=== PATIENT | female | born 1935 | race Caucasian/White ===

== ENCOUNTER 2017-03-19 12:35 | Inpatient (IN) ==
[2017-03-19] MEDS ORDERED: LORazepam 1 MG TABLET PO PRN (13:12)
--- OUTSIDE RECORDS SUMMARY | 2017-03-19 13:25 | External Medical Summary | Referral Summary ---
:1935 Author Organization [facility] Address [address] [place] [address] Care Team Providers Name Role Phone Maddi Cummings Primary Care Physician Encounter VC Date(s): 08/01/15 - 08/01/15 [facility] [address] [place] [address]- [place] Discharge Diagnosis: Constipation Discharge Disposition: 01-Home or Self Care Attending Physician: Maddi Cummings MD Admitting Physician: Maddi Cummings MD Vital Signs Most recent to oldest [Reference Range]: 1 Peripheral Pulse Rate [60-100 bpm] 72 bpm (08/01/15 1:51 PM) Respiratory Rate [14-20 br/min] 20 br/min (08/01/15 1:51 PM) Blood Pressure [90-140/60-90 mmHg] 126/62 mmHg (08/01/15 1:51 PM) Problem List Condition Effective Dates Status Health Status Informant Anxiety(Confirmed) Resolved Asthma(Confirmed) Resolved Atrial fibrillation(Confirmed) Resolved Drusen of macula(Confirmed) Active Dry eyes(Confirmed) Active GERD(Confirmed) Resolved Insomnia(Confirmed) Resolved MVP (mitral valve Resolved prolapse)(Confirmed) OA - Osteoarthritis(Confirmed) Resolved Prosthetic Replacement for L hip fx 12/16/13 Resolved 38025(Confirmed)1 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) 1[facility] post-op global ends 03-16-14 Allergies, Adverse Reactions, Alerts No Known Allergies Medications acetaminophen 325 mg oral tablet 650 mg 2 tabs, Oral, q4hr, as needed for fever, # 120 tabs, 0 Refill(s) Start Date: 11/26/14 Status: Orderedamoxicillin 500 mg oral tablet 500 mg 1 tabs, Oral, Once, take 1 hour prior for prophylaxis, # 4 caps, 0 Refill (s) Start Date: 11/26/14 Status: OrderedAricept 10 mg oral tablet 1 tabs, Oral, Bedtime (once a day), # 30 tabs, 11 Refill(s), Pharmacy: [facility] #[id number], 1 tabs Oral Bedtime (once a day) Start Date: 11/16/13 Status: OrderedCardizem 120 mg oral tablet 1 tabs, Oral, Daily, 0 Refill(s) Start Date: 11/10/13 Status: Ordereddigoxin 125 mcg (0.125 mg) oral tablet 1 tabs, Oral, Daily, # 30 tabs, 0 Refill(s) Start Date: 11/10/13 Status: Orderedhaloperidol 0.5 mg oral tablet 2 tabs, Oral, Bedtime (once a day), 0 Refill(s) Start Date: 11/10/13 Status: OrderedMelatonin 3 mg oral tablet 3 mg 1 tabs, Oral, Bedtime (once a day), as needed for insomnia, # 60 tabs, 0 Refill(s) Start Date: 11/26/14 Status: Orderedmirtazapine 7.5 mg oral tablet 15 mg 2 tabs, Oral, Bedtime (once a day), 0 Refill(s) Start Date: 11/10/13 Status: OrderedNorco 7.5 mg-325 mg oral tablet 1 tabs, Oral, q6hr, as needed for pain, Faxed to [facility], # 60 tabs, 3 Refill(s), called to pharmacy (Rx) Start Date: 02/18/14 Status: OrderedOcuvite oral tablet 1 tabs, Oral, Daily, 0 Refill(s) Start Date: 11/16/13 Status: Orderedomeprazole 20 mg oral delayed release capsule See Instructions, TAKE ONE CAPSULE BY MOUTH EVERY DAY, # 30 caps, 3 Refill(s), eRx: [facility]#[id number], TAKE ONE CAPSULE BY MOUTH EVERY DAY Start Date: 12/06/13 Status: OrderedSystane ophthalmic solution 1 drops, Eye-Both, BID, as needed for dry eyes, # 5 mL, 0 Refill(s) Start Date: 11/26/14 Status: Orderedtolterodine 4 mg oral capsule, extended release 1 caps, Oral, Daily, # 30 caps, 11 Refill(s), Pharmacy: [facility], 1 caps Oral Daily Start Date: 02/19/14 Status: OrderedVitamin D3 400 intl units oral tablet 1 tabs, Oral, Daily, 0 Refill(s) Start Date: 11/10/13 Status: Orderedwarfarin 3 mg oral tablet See Instructions, Take 1 tablet M, W, F/ or otherwise instructed by doctor, 0 Refill(s) Start Date: 11/10/13 Status: Orderedwarfarin 4 mg oral tablet See Instructions, Take 1 tablet by mouth Steve, , Th, Sa/ or as otherwise instructed by doctor, 0 Refill(s) Start Date: 11/10/13 Status: OrderedXanax 0.5 mg oral tablet See Instructions, as needed for anxiety, Take 1/2 tab by mouth BID for anxiety and take 2 tabs by mouth every 12 hours as needed for anxiety., # 90 tabs, 5 Refill(s), called to pharmacy (Rx) Start Date: 08/15/14 Status: Ordered Results No data available for this section Immunizations Vaccine Date Refusal Reason influenza virus vaccine, H1N1, inactivat 05/13/09 influenza virus vaccine, inactivated 02/25/15 influenza virus vaccine, live 03/05/11 influenza virus vaccine, live 02/04/09 influenza virus vaccine, live 03/11/08 Procedures No data available for this section Social History Social History Type Response Smoking Status Never smoker Assessment and Plan No data available for this section
--- OUTSIDE RECORDS SUMMARY | 2017-03-19 13:25 | External Medical Summary | Referral Summary ---
:1935 Author Organization [facility] Address [address] [place] [address] Care Team Providers Name Role Phone Maddi Cummings Primary Care Physician Encounter VC Date(s): 11/26/14 - 11/26/14 [facility] [address] [place] [address]- [place] Discharge Diagnosis: Benign essential HTN Discharge Diagnosis: Atrial fibrillation Discharge Diagnosis: Epistaxis Discharge Diagnosis: Anxiety Discharge Diagnosis: Anticoagulant long-term use Discharge Diagnosis: Dementia Discharge Disposition: 01-Home or Self Care Attending Physician: Maddi Cummings MD Admitting Physician: Maddi Cummings MD Vital Signs Most recent to oldest [Reference Range]: 1 Peripheral Pulse Rate [60-100 bpm] 72 bpm (11/26/14 4:15 PM) Blood Pressure [90-140/60-90 mmHg] 154/82 mmHg *HI* (11/26/14 4:15 PM) SpO2 98 % (11/26/14 4:15 PM) Problem List Condition Effective Dates Status Health Status Informant Anxiety(Confirmed) Resolved Asthma(Confirmed) Resolved Atrial fibrillation(Confirmed) Resolved Drusen of macula(Confirmed) Active Dry eyes(Confirmed) Active GERD(Confirmed) Resolved Insomnia(Confirmed) Resolved MVP (mitral valve Resolved prolapse)(Confirmed) OA - Osteoarthritis(Confirmed) Resolved Prosthetic Replacement for L hip fx 12/16/13 Resolved 24307(Confirmed)1 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) 1[facility] post-op global ends 03-16-14 Allergies, Adverse [...] day), # 30 tabs, 11 Refill(s), Pharmacy: [facility] #[id number], 1 tabs Oral Bedtime (once a day) Start Date: 11/16/13 Status: Orderedcalcium citrate 500 mg, Oral, Daily, 0 Refill(s) Start Date: 11/10/13 Status: OrderedCardizem 120 mg oral tablet 1 [...] q6hr, as needed for pain, Faxed to [facility], # 60 tabs, 3 Refill(s), called to pharmacy (Rx) Start Date: 02/18/14 Status: OrderedOcuvite oral tablet 1 tabs, Oral, Daily, 0 Refill(s) Start Date: 11/16/13 Status: Orderedomeprazole 20 mg oral delayed release capsule See Instructions, TAKE ONE CAPSULE BY MOUTH EVERY DAY, # 30 caps, 3 Refill(s), eRx: [facility]#[id number], TAKE ONE CAPSULE BY MOUTH EVERY DAY Start Date: 12/06/13 Status: OrderedSystane ophthalmic solution 1 drops, Eye-Both, BID, as needed for dry eyes, # 5 mL, 0 Refill(s) Start Date: 11/26/14 Status: Orderedtolterodine 4 mg oral capsule, extended release 1 caps, Oral, Daily, # 30 caps, 11 Refill(s), Pharmacy: [facility], 1 caps Oral Daily Start Date: [...] Take 1 tablet by mouth Steve, , , Sa/ or as otherwise instructed by doctor, [...] Smoking Status Never smoker Assessment and Plan Extracted from: Title: Office Visit Note Author: Maddi Cummings MD Date: 11/26/14 Assessment/Plan 1.Epistaxis Resolved with addition of humidity. Continue to monitor. Her INR was therapeutic. 2.Anxiety We'll continue to monitor. Hopefully they'll be able to find some activities that she isn't sedated. She is Re: Taking Xanax on a when necessary basis. She also gets it 8 in the morning and 5 o'clock in the afternoon. 3.Anticoagulant long-term use INR therapeutic. Continue to monitor. 4.Dementia Stable, continue to monitor. 5.Atrial fibrillation Currently in normal sinus rhythm, continue to monitor. 6.Benign essential HTN Stable, continue to monitor. She will return she me in 3 months or sooner with problems.
--- OUTSIDE RECORDS SUMMARY | 2017-03-19 13:25 | External Medical Summary | Referral Summary ---
:1935 Author Organization [facility] Address [address] [place] [address] Care Team Providers Name Role Phone Maddi Cummings Primary Care Physician Encounter VC Date(s): 10/10/15 - 10/10/15 [facility] [address] [place] [address]- [place] Discharge Diagnosis: Weight loss Discharge Disposition: 01-Home or Self Care Attending Physician: Maddi Cummings MD Vital Signs Most recent to oldest [Reference Range]: 1 Peripheral Pulse Rate [60-100 bpm] 84 bpm (10/10/15 2:40 PM) Respiratory Rate [14-20 br/min] 20 br/min (10/10/15 2:40 PM) Blood Pressure [90-140/60-90 mmHg] 120/56 mmHg (10/10/15 2:40 PM) Problem List Condition Effective Dates Status Health Status Informant Anxiety(Confirmed) Resolved Asthma(Confirmed) Resolved Atrial fibrillation(Confirmed) Resolved Drusen of macula(Confirmed) Active Dry eyes(Confirmed) Active GERD(Confirmed) Resolved Insomnia(Confirmed) Resolved MVP (mitral valve Resolved prolapse)(Confirmed) OA - Osteoarthritis(Confirmed) Resolved Prosthetic Replacement for L hip fx 12/16/13 Resolved 79940(Confirmed)1 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 Fax to [phone], # 30 caps, 11 Refill(s) Start Date: 08/06/15 Status: OrderedMelatonin 3 mg oral tablet 3 [...] q6hr, as needed for pain, Faxed to [facility], # 60 tabs, 3 Refill(s), called to pharmacy (Rx) Start Date: 02/18/14 Status: OrderedOcuvite oral tablet 1 tabs, Oral, Daily, 0 Refill(s) Start Date: 11/16/13 Status: Orderedomeprazole 20 mg oral delayed release capsule See Instructions, TAKE ONE CAPSULE BY MOUTH EVERY DAY, # 30 caps, 3 Refill(s), eRx: [facility]#[id number], TAKE ONE CAPSULE BY MOUTH EVERY DAY Start Date: 12/06/13 Status: Orderedsenna 8.6 mg oral tablet 8.6 mg 1 tabs, Oral, BID, as needed for constipation, # 60 tabs, 11 Refill(s) Start Date: 08/20/15 Status: OrderedSystane ophthalmic solution 1 drops, Eye-Both, BID, as needed for dry eyes, # 5 mL, 0 Refill(s) Start Date: 11/26/14 Status: Orderedtolterodine 4 mg oral capsule, extended release 1 caps, Oral, Daily, # 30 caps, 11 Refill(s), Pharmacy: [facility], 1 caps Oral Daily Start [...] Instructions, Take 1 tablet by mouth Steve, Tu, Th, Sa/ or as otherwise instructed by [...] smoker Assessment and Plan Extracted from: Title: Assited living letter Author: Melyssa Gary RN Date: 10/10/15 To whom it may concern: [facility] is cleared for assisted living. If you have any questions feel free to call my office at [phone]. Sincerely, Maddi Cummings MD Extracted from: Title: TW General Complaint Author: Maddi Cummings MD Date: 10/10/15 Impression and Plan Diagnosis Constipation (UIW38-IW K59.00, Working, Medical). Plan: Will continue Linzess. Discontinue prune juice and she may use yogurt. . Diagnosis Dementia (DGB78-WV F03.90, Working, Medical). Plan: Slight progression, will continue to monitor. . Diagnosis Atrial fibrillation (TEU48-IX I48.91, Working, Medical). Plan: Stable. Continue current care. . Diagnosis Anxiety (FFM64-BY F41.9, Working, Medical). Plan: She is having a lot of anxiety about bowel movements. Continue to monitor and continue anxiety medication. . Diagnosis Weight loss (JDK65-DH R63.4, Discharge, Medical). Plan: she has been losing weight. Daughter states that she eats very well. We discussed whether or not to proceed with further evaluation. Because of her dementia and other comorbidities her freeman quintanilla is not inclined to pursue evaluation at this time. We'll continue to monitor..
--- OUTSIDE RECORDS SUMMARY | 2017-03-19 13:29 | External Medical Summary | Referral Summary ---
:1935 Author Organization [facility] Address [address] [place] [address] Care Team Providers Name Role Phone Maddi Cummings Primary Care Physician Encounter VC Date(s): 07/07/15 - 07/07/15 [facility] [address] [place] [address]- [place] Discharge Diagnosis: Constipation Discharge Disposition: 01-Home or Self Care Attending Physician: Maddi Cummings MD Admitting Physician: Maddi Cummings MD Vital Signs Most recent to oldest [Reference Range]: 1 Peripheral Pulse Rate [60-100 bpm] 76 bpm (07/07/15 2:58 PM) Respiratory Rate [14-20 br/min] 16 br/min (07/07/15 2:58 PM) Blood Pressure [90-140/60-90 mmHg] 99/69 mmHg (07/07/15 2:58 PM) Problem List Condition Effective Dates Status Health Status Informant Anxiety(Confirmed) Resolved Asthma(Confirmed) Resolved Atrial fibrillation(Confirmed) Resolved Drusen of macula(Confirmed) Active Dry eyes(Confirmed) Active GERD(Confirmed) Resolved Insomnia(Confirmed) Resolved MVP (mitral valve Resolved prolapse)(Confirmed) OA - Osteoarthritis(Confirmed) Resolved Prosthetic Replacement for L hip fx 12/16/13 Resolved 82557(Confirmed)1 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) 1[facility] post-op global ends 03-16-14 Allergies, Adverse Reactions, [...] day), # 30 tabs, 11 Refill(s), Pharmacy: [facility] #[id number], 1 tabs Oral Bedtime (once a day) [...] q6hr, as needed for pain, Faxed to [facility], # 60 tabs, 3 Refill(s), called to pharmacy (Rx) Start Date: 02/18/14 Status: OrderedOcuvite oral tablet 1 tabs, Oral, Daily, 0 Refill(s) Start Date: 11/16/13 Status: Orderedomeprazole 20 mg oral delayed release capsule See Instructions, TAKE ONE CAPSULE BY MOUTH EVERY DAY, # 30 caps, 3 Refill(s), eRx: [facility]#[id number], TAKE ONE CAPSULE BY MOUTH EVERY DAY Start Date: 12/06/13 Status: OrderedSystane ophthalmic solution 1 drops, Eye-Both, BID, as needed for dry eyes, # 5 mL, 0 Refill(s) Start Date: 11/26/14 Status: Orderedtolterodine 4 mg oral capsule, extended release 1 caps, Oral, Daily, # 30 caps, 11 Refill(s), Pharmacy: [facility], 1 caps Oral Daily Start [...] Extracted from: Title: Office Visit Note Author: Mdadi Cummings MD Date: 07/07/15 Assessment/Plan 1.Constipation We went over her medication list she has some things on there that can cause constipation. Her daughter states that she is not sure that she is really been taking all medications listed. I will have my staff call the home and get an updated MAR. I'm not sure if any of the medications listed can be discontinued. We may have to decrease his Senokot-S to once dailyto avoidthe loose stools.
--- OUTSIDE RECORDS SUMMARY | 2017-03-19 13:29 | External Medical Summary | Continuity of Care Document ---
:1935 Author Organization [facility] Allergies Active Description Code Type Severity Reaction Onset Reported/ Identified Relationship Clinical to Patient Status Yes No Known Drug 04/23/2012 Allergies Aller gy Yes No Known Drug 04/23/2012 Drug Aller Allergies gy Yes No Known Food 04/23/2012 Food Aller Allergies gy Yes No Known No Drug Unknown UNKNOWN 08/07/2013 Drug Known Aller Allergies Drug gy Aller gies Yes No Known No Drug Unknown N/A 05/20/2014 Allergies Known Aller Aller gy gies Medications Problems Date Dx Attending Type Code Diagnosis Diagnosed By Coded 02/09/2012 Avery Mayer MD Final 401.9 HYPERTENSION NOS C 02/09/2012 Avery Mayer MD Final 562.10 COLON DIVERTICULOSIS C 02/09/2012 Avery Mayer MD Final 564.00 CONSTIPATION NOS C 02/09/2012 Avery Mayer MD Final 793.19 NONSP FINDING-LF NEC C 03/14/2012 Asif Nowak Final 786.05 SHORTNESS OF BREATH Ella CABRAL 04/23/2012 Carl CABRAL, Final 300.00 ANXIETY STATE NOS Cristine W 04/23/2012 Carl CABRAL, Final 427.31 ATRIAL FIBRILLATION Cristine W 04/23/2012 Carl CABRAL, Admitting 785.0 TACHYCARDIA NOS Cristine W 08/07/2013 Serafin CABRAL, A 789.00 ABDOMINAL PAIN, Derek M UNSPECIFIED SITE 12/16/2013 Darwin Fam MD 276.1 HYPOSMOLALITY D 12/16/2013 Darwin Fam MD 276.8 HYPOPOTASSEMIA D 12/16/2013 Darwin Fam MD 294.20 DEMENTIA, D UNSPECIFIED, WITHOUT BEHAVIORAL DISTURBA 12/16/2013 Darwin Fam MD 300.00 ANXIETY STATE NOS D 12/16/2013 Darwin Fam MD 401.9 HYPERTENSION NOS D 12/16/2013 Darwin Fam MD 427.31 ATRIAL FIBRILLATION D 12/16/2013 Darwin Fam MD 428.0 CONGESTIVE HEART D FAILURE NOS 12/16/2013 Darwin Fam MD 820.09 FX FEMUR INTRCAPS D NEC-CL 12/16/2013 Darwin Fam MD 820.8 FX NECK OF FEMUR D NOS-CL 12/16/2013 Darwin Fam MD E849.0 ACCIDENT IN HOME D 12/16/2013 Darwin Fam MD E888.9 FALL NOS D 12/16/2013 Darwin Fam MD V58.61 ANTICOAGULANTS,LT,CU D RRENT USE Procedures Code Description Performed By Performed On Darwin Fam MD 12/16/2013 81.52 PARTIAL HIP REPLACEMENT Encounters ACCT No. Visit Discharge Status Pt. Type Provider Facility Loc./Unit Complaint Date/Time [id number] 04/23/2012 04/23/2012 DIS Emergency Carl CABRAL, [facility] 4 19:04:00 21:15:00 [facility] [id number] 03/15/2012 03/15/2012 CLS Outpatient Asif [facility] 0 07:46:00 23:59:59 Eliu Ortiz MD, [facility] [id number] 02/09/2012 02/09/2012 DIS Emergency Moreno CABRAL, [facility] 3 12:36:00 17:19:00 [facility] [id number] 07/30/2013 07/30/2013 CLS Outpatient 07:53:00 23:59:59 [id number] 07/27/2013 07/27/2013 CLS Outpatient 18:28:00 23:59:59 [id number] 07/25/2013 07/25/2013 CLS Outpatient 15:54:00 23:59:59 [id number] 07/20/2013 07/20/2013 CLS Outpatient 14:48:00 23:59:59 [id number] 07/04/2013 07/04/2013 CLS Outpatient 15:36:00 23:59:59 [id number] 06/20/2013 06/20/2013 CLS Outpatient 11:26:00 23:59:59 [id number] 05/25/2013 05/25/2013 CLS Outpatient 08:02:00 23:59:59 [id number] 03/16/2013 03/16/2013 CLS Outpatient 09:40:00 23:59:59 [id number] 05/20/2014 05/20/2014 DIS Emergency Serafin CopeEDS 07 18:04:00 22:10:00 , [facility] M [id number] 12/16/2013 12/19/2013 DIS Inpatient Sarwat Hermanley BlaineRemi9TS 13 01:51:00 15:04:00 MD [facility] [id number] 09/12/2013 09/13/2013 DIS Outpatient Emiliano CopeSELECT BANKER 57 14:41:00 17:44:00 MD [facility] [id number] 08/07/2013 08/08/2013 DIS Emergency Jadenlonny Conor CopeEDS 43 19:38:00 01:53:00 , [facility] M [id number] 05/17/2010 05/17/2010 CLS Emergency 38 21:47:00 23:59:59
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
[2017-03-19] MEDS ORDERED: HALOPERIDOL 5 MG/ML INJECTION IM PRN (14:23)
[2017-03-19 15:11] VITALS: BMI 16.5
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
[2017-03-19] MEDS ORDERED: WARFARIN - PHARMACY CONSULT MC ONE (16:04)
[2017-03-19] MEDS: MIRTAZAPINE 30 MG TABLET PO SCH (19:41)
[2017-03-19] MEDS: ClonazePAM 0.5 MG TABLET PO SCH (19:41)
[2017-03-19] MEDS: MEMANTINE 10 MG TABLET PO SCH (19:41)
[2017-03-19] MEDS: HALOPERIDOL 0.5 MG TABLET PO PRN (20:22)
[2017-03-20] MEDS: OMEPRAZOLE 20 MG CAPSULE PO SCH (08:38)
[2017-03-20] MEDS: ClonazePAM 0.5 MG TABLET PO SCH ×2 (08:45→21:44)
[2017-03-20] MEDS: DIGOXIN 125 MCG TABLET PO SCH (08:46)
[2017-03-20] MEDS: POLYETHYL GLYCOL 3350 17gm PACKET PO SCH (08:47)
[2017-03-20] MEDS ORDERED: WARFARIN 3 MG TABLET PO SCH (09:00)
--- NOTE | 2017-03-20 09:53 | XRay Report ---
INDICATION: confusion PROCEDURE: CHEST 2-VIEWS UPRIGHT (PA & LAT) Encounter: Initial COMPARISON: None FINDINGS: The lungs are clear without evidence of focal abnormal airspace opacity. There is no pleural effusion or pneumothorax. The heart size, mediastinal contours and pulmonary vascularity are within normal limits. Scoliosis and degenerative change in the lumbar spine. IMPRESSION: No acute cardiopulmonary disease. .
[2017-03-20] MEDS ORDERED: WARFARIN 4 MG TABLET PO SCH (12:00)
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
[2017-03-20] MEDS: LORazepam 0.5 MG TABLET PO PRN (15:17)
[2017-03-20] MEDS: MIRTAZAPINE 30 MG TABLET PO SCH (21:44)
[2017-03-20] MEDS: MEMANTINE 10 MG TABLET PO SCH (21:44)
[2017-03-20] MEDS: HALOPERIDOL 0.5 MG TABLET PO PRN (22:24)
[2017-03-21] MEDS: ClonazePAM 0.5 MG TABLET PO SCH ×2 (09:10→20:20)
[2017-03-21] MEDS: OMEPRAZOLE 20 MG CAPSULE PO SCH (09:21)
[2017-03-21] MEDS: DIGOXIN 125 MCG TABLET PO SCH (09:21)
[2017-03-21] MEDS: POLYETHYL GLYCOL 3350 17gm PACKET PO SCH (09:21)
--- NOTE | 2017-03-21 09:59 | Pharmacy Consult ---
Pharmacy Consult-Warfarin - Laboratory Information 03/21/17 07:01 INR 1.85 H Coumadin Consult Recurring: Dx: Atrial Fibrillation I ordered warfarin 4 mg today. The pharmacy will continue to monitor the INR's and adjust the warfarin accordingly. Thank you for the Warfarin Dosing Protocol , Asif Mohan, Pharmacist.
[2017-03-21] MEDS: HALOPERIDOL 0.5 MG TABLET PO PRN (10:57)
[2017-03-21] MEDS ORDERED: WARFARIN 4 MG TABLET PO SCH (12:00)
[2017-03-21] MEDS ORDERED: INFLUENZA VAC High Dose 2017-18 (Fluzone HD*) (>=65yo) 0.5ml IM ONE (13:40)
[2017-03-21] MEDS: LORazepam 0.5 MG TABLET PO PRN (13:49)
[2017-03-21] MEDS ORDERED: INFLUENZA VAC. INJ. ADMIN CHARGE INJ ONE (13:55)
[2017-03-21] MEDS: MIRTAZAPINE 30 MG TABLET PO SCH (20:20)
[2017-03-21] MEDS: MEMANTINE 10 MG TABLET PO SCH (20:20)
--- NOTE | 2017-03-21 21:30 | Neuropsych Progress Note ---
[facility] Subjective Date: 03/21/17 - Sujective/Severity of Illness Medications: Clonazepam (Klonopin) 0.5 mg PO BID [facility] Last Admin: 03/21/17 20:20 Dose: 0.5 mg Digoxin (Lanoxin) 125 mcg PO Q2D [facility] Diltiazem HCl (Cardizem Cd) 120 mg PO DAILY [facility] Last Admin: 03/21/17 09:10 Dose: 120 mg Haloperidol (Haldol) 0.5 mg PO Q6H PRN PRN Reason: Extreme agitation Last Admin: 03/21/17 10:57 Dose: 0.5 mg Haloperidol Lactate (Haldol) 0.5 mg IM Q6H PRN PRN Reason: Extreme agitation Lorazepam (Ativan) 1 mg PO O PRN PRN Reason: Agitation Lorazepam (Ativan) 0.5 mg PO Q6H PRN PRN Reason: Extreme agitation Last Admin: 03/21/17 13:49 Dose: 0.5 mg Lorazepam (Ativan Inj) 0.5 mg IM Q6H PRN PRN Reason: Extreme agitation Memantine (Namenda) 10 mg PO HS [facility] Last Admin: 03/21/17 20:20 Dose: 10 mg Mirtazapine (Remeron) 30 mg PO HS [facility] Last Admin: 03/21/17 20:20 Dose: 30 mg Omeprazole (Prilosec) 20 mg PO ACB [facility] Last Admin: 03/21/17 09:21 Dose: 20 mg Polyethylene Glycol (Miralax) 17 gm PO DAILY [facility] Last Admin: 03/21/17 09:21 Dose: 17 gm Warfarin Sodium (Coumadin Protocol) 0 MC NOTE [facility] Warfarin Sodium (Coumadin) 4 mg PO NOON [facility] Stop: 03/21/17 23:59 Last Admin: 03/21/17 13:14 Dose: 4 mg Subjective: Pt seen and chart examined. Nursing reports pt has been anxious and confused and difficult to redirect at times. On face to face the pt is pleasant but confused. She is seen eating dinner. She reports she is anxious and remains paranoid about someone breaking in her window. Denies S/I. Tolerating meds Start Time: 18:15 Stop Time: 18:30 Mental Status Exam Vitals: Last Vital Signs Temp 97.7 F 03/21/17 16:31 Pulse 85 03/21/17 16:31 Resp 16 03/21/17 16:31 BP 116/58 03/21/17 16:31 Pulse Ox 97 03/21/17 16:31 Height: 1.52 m Weight: 38.5 kg - Mental Status Exam Muscle Strength/Tone: Normal Dressing: Casual Grooming: Good Attitude: Guarded Motor Activity: Retardation Eye Contact: Fair Speech: Slowed Volume: Soft Rhythm: Appropriate Rhythm Orientation: Oriented to person Mood: Neutral Rate of Thoughts: Delayed Thought Organization: [place] Associations: Flight of Ideas Abstract Reasoning: Poor abstract reasoning Thought Content: Delusions, Paranoia Perception/Psychotic: Perception Normal Language: Naming Impaired Fund of Knowledge: Poor fund of knowledge Memory: Poor-immediate, Poor-recent Suicidal Ideation: None Homicidal Ideation: None Insight: Poor Judgement: Poor Impulse Control: Poor - Laboratory Result Diagrams: 03/21/17 07:01 03/19/17 13:22 Laboratory Results - last 24 hr 03/21/17 03/21/17 07:01 07:01 WBC 4.7 RBC 3.87 L Hgb 11.8 L Hct 36.7 MCV 94.8 MCH 30.5 MCHC 32.2 RDW Std Deviation 42.6 Plt Count 311 MPV 10.8 Immature Gran % (Auto) 0.0 Neut % (Auto) 44.4 Lymph % (Auto) 39.3 Wilkin % (Auto) 9.0 Eos % (Auto) 5.8 H Baso % (Auto) 1.5 Neut # (Auto) 2.1 Lymph # (Auto) 1.8 Wilkin # (Auto) 0.4 Eos # (Auto) 0.3 Baso # (Auto) 0.1 Abs Immat Gran (auto) 0.00 INR 1.85 H Assessment and Plan (1) Major neurocognitive disorder Problem details: with behavioral disturbance. Alzheimer's versus Vascular Current visit: Yes Status: Acute Hospital Course Summary Disclaimer: The visit summary below is not to be considered part of the above Progress Note. Hospital Course: 03/19/17 16:13 IMPRESSION Neurocognitive disorder with behavioral changes Normocytic anemia Dementia Anxiety & Depression A-fib - on Coumadin HTN MVP OA Asthma GERD Slow transit constipation PLAN Agree with admission. Still need to check EKG, CT head. Routine labs are also pending. Check dig level and INR. Consult pharmacy for Coumadin management. VS stable though HR has been mildly elevated - hx of A-fib, may need to investigate options for rate control. Normocytic anemia - check B12 level. Cachetic - check prealbumin level. Provide safe, supportive environment. 03/21/17 21:30 Remains confused. Will get collateral from family and discuss med options
[2017-03-22] MEDS: OMEPRAZOLE 20 MG CAPSULE PO SCH (05:33)
[2017-03-22] MEDS: POLYETHYL GLYCOL 3350 17gm PACKET PO SCH (08:02)
[2017-03-22] MEDS: ClonazePAM 0.5 MG TABLET PO SCH ×3 (08:03→23:41)
--- NOTE | 2017-03-22 08:13 | Pharmacy Consult ---
Pharmacy Consult-Warfarin - Laboratory Information 03/21/17 03/22/17 07:01 04:56 INR 1.85 H 1.85 H COUMADIN CONSULT: PC is an 81 yo female that was admitted for Major Neurocognitive Disorder. The patient has a history of atrial fibrillation with anticoagluation therapy using warfarin. Her home dose of warfarin was 4 mg orally daily. Date INR Dose 03/16 1.97 ? 03/20 ---- 4 mg 03/21 1.85 4 mg 03/22 1.85 5 MG The INR did not budge from the 1.85 so I ordered Warfarin 5 mg orally at noon today in order to increase the INR equal to or greater than 2.0. The goal INR for this patient is 2-3. The Pharmacy will continue to monitor the INR's and adjust the dosage of the Coumadin accordingly. Thank you for the Warfarin Dosing Protocol, Asif Mohan, Pharmacist.
--- NOTE | 2017-03-22 09:37 | Progress Note ---
- Date 03/22/17 Subjective: Winsome was eating breakfast. She reports sleeping well last night but staff disagreed - she slept for about 3 - 30 min stretches for a total of 1.5 hrs. She was anxious and restless all night. She denies any pain or SOA. She denies abdominal pain or nausea, but has been constipated per staff and took prune juice and MiraLAX this am. Objective Vital signs: Temperature 97.4 F 03/22/17 08:57 Pulse Rate 84 03/22/17 08:57 Respiratory Rate 16 03/22/17 08:57 Blood Pressure 146/67 H 03/22/17 08:57 Pulse Oximetry 97 03/22/17 08:57 Height/Weight/BMI: Height 1.52 m Weight 38.5 kg Body Mass Index 16.5 - Constitutional Present: no acute distress, cachectic - Routine HEENT Exam Eye: Absent: conjunctival icterus ENT: Present: mucous membranes moist - Routine Respiratory Exam Present: CTA bilaterally - Routine Cardiovascular Exam Present: irregularly irregular - Routine Abdominal Exam Present: soft, normoactive bowel sounds - Routine Extremities Exam Present: no edema - Routine Skin Exam Present: dry, warm - Routine Neurological Exam Present: alert - Routine Psychiatric Exam Present: cooperative Results - Labs CBC & Chem 7: 03/21/17 07:01 03/19/17 13:22 Assessment and Plan (1) Neurocognitive disorder Current visit: Yes Status: Acute Assessment and Plan: IMPRESSION Neurocognitive disorder with behavioral changes Normocytic anemia Mild PCM Dementia Anxiety & Depression A-fib - on Coumadin HTN MVP OA Asthma GERD Slow transit constipation PLAN Digoxin level was normal at 0.8 though give her age and low BMI this may be on the high end for her - digoxin frequency was therefore decreased to every-other- day. HR was >100 on admission but since then has been in the 80s-90s - BP has been acceptable; could consider increasing cardizem if rate increases with reduction of dig. INR 1.85 - pharmacy managing. Prealbumin low at 13.5 - start nutritional supplements. Vit B12 was low end of normal - start supplementation. Hospital Course Summary Disclaimer: The visit summary below is not to be considered part of the above Progress Note. Hospital Course: 03/19/17 16:13 IMPRESSION Neurocognitive disorder with behavioral changes Normocytic anemia Dementia Anxiety & Depression A-fib - on Coumadin HTN MVP OA Asthma GERD Slow transit constipation PLAN Agree with admission. Still need to check EKG, CT head. Routine labs are also pending. Check dig level and INR. Consult pharmacy for Coumadin management. VS stable though HR has been mildly elevated - hx of A-fib, may need to investigate options for rate control. Normocytic anemia - check B12 level. Cachetic - check prealbumin level. Provide safe, supportive environment. 03/21/17 21:30 Remains confused. Will get collateral from family and discuss med options 03/22/17 IMPRESSION Neurocognitive disorder with behavioral changes Normocytic anemia Mild PCM Dementia Anxiety & Depression A-fib - on Coumadin HTN MVP OA Asthma GERD Slow transit constipation PLAN Digoxin level was normal at 0.8 though give her age and low BMI this may be on the high end for her - digoxin frequency was therefore decreased to every-other- day. HR was >100 on admission but since then has been in the 80s-90s - BP has been acceptable; could consider increasing cardizem if rate increases with reduction of dig. INR 1.85 - pharmacy managing. Prealbumin low at 13.5 - start nutritional supplements. Vit B12 was low end of normal - start supplementation.
[2017-03-22] MEDS: LORazepam 0.5 MG TABLET PO PRN ×2 (09:43→15:39)
[2017-03-22] MEDS ORDERED: WARFARIN 5 MG TABLET PO SCH (12:00)
[2017-03-22] MEDS: CYANOCOBALAMIN (B-12) 500mcg TABLET PO SCH (12:04)
[2017-03-22] MEDS: HALOPERIDOL 0.5 MG TABLET PO PRN (15:39)
--- NOTE | 2017-03-22 17:17 | Neuropsych Progress Note ---
[facility] Subjective Date: 03/22/17 - Sujective/Severity of Illness Medications: Clonazepam (Klonopin) 0.5 mg PO BID [facility] Last Admin: 03/22/17 08:03 Dose: 0.5 mg Cyanocobalamin (Vit. B-12) 500 mcg PO DAILY [facility] Last Admin: 03/22/17 12:04 Dose: 500 mcg Digoxin (Lanoxin) 125 mcg PO Q2D [facility] Diltiazem HCl (Cardizem Cd) 120 mg PO DAILY [facility] Last Admin: 03/22/17 08:03 Dose: 120 mg Haloperidol (Haldol) 0.5 mg PO Q6H PRN PRN Reason: Extreme agitation Last Admin: 03/22/17 15:39 Dose: 0.5 mg Haloperidol Lactate (Haldol) 0.5 mg IM Q6H PRN PRN Reason: Extreme agitation Lorazepam (Ativan) 1 mg PO O PRN PRN Reason: Agitation Lorazepam (Ativan) 0.5 mg PO Q6H PRN PRN Reason: Extreme agitation Last Admin: 03/22/17 15:39 Dose: 0.5 mg Lorazepam (Ativan Inj) 0.5 mg IM Q6H PRN PRN Reason: Extreme agitation Memantine (Namenda) 10 mg PO HS [facility] Last Admin: 03/21/17 20:20 Dose: 10 mg Mirtazapine (Remeron) 30 mg PO HS [facility] Last Admin: 03/21/17 20:20 Dose: 30 mg Omeprazole (Prilosec) 20 mg PO ACB [facility] Last Admin: 03/22/17 05:33 Dose: 20 mg Polyethylene Glycol (Miralax) 17 gm PO DAILY [facility] Last Admin: 03/22/17 08:02 Dose: 17 gm Warfarin Sodium (Coumadin Protocol) 0 MC NOTE [facility] Warfarin Sodium (Coumadin) 5 mg PO NOON [facility] Stop: 03/22/17 23:59 Last Admin: 03/22/17 12:04 Dose: 5 mg Subjective: Pt seen and chart examined. Nursing reports pt has done a little better today but did receive Haldol and Ativan at 1540 for paranoia. On face to face the pt is resting quietly in her chair. She is pleasant but confused. She is only oriented to self. She denies any pain. Tolerating meds Start Time: 18:00 Stop Time: 18:15 Mental Status Exam Vitals: Last Vital Signs Temp 97.4 F 03/22/17 08:57 Pulse 84 03/22/17 08:57 Resp 16 03/22/17 08:57 BP 146/67 H 03/22/17 08:57 Pulse Ox 97 03/22/17 08:57 Height: 1.52 m Weight: 38.5 kg - Mental Status Exam Muscle Strength/Tone: Normal Dressing: Casual Grooming: Good Attitude: Guarded Motor Activity: Retardation Eye Contact: Fair Speech: Slowed Volume: Soft Rhythm: Appropriate Rhythm Orientation: Oriented to person Mood: Neutral Rate of Thoughts: Delayed Thought Organization: [place] Associations: Flight of Ideas Abstract Reasoning: Poor abstract reasoning Thought Content: Delusions, Paranoia Perception/Psychotic: Perception Normal Language: Naming Impaired Fund of Knowledge: Poor fund of knowledge Memory: Poor-immediate, Poor-recent Suicidal Ideation: None Homicidal Ideation: None Insight: Poor Judgement: Poor Impulse Control: Poor - Laboratory Result Diagrams: 03/21/17 07:01 03/19/17 13:22 Laboratory Results - last 24 hr 03/22/17 04:56 INR 1.85 H Assessment and Plan (1) Major neurocognitive disorder Problem details: with behavioral disturbance. Alzheimer's versus Vascular Current visit: Yes Status: Acute Hospital Course Summary Disclaimer: The visit summary below is not to be considered part of the above Progress Note. Hospital Course: 03/19/17 16:13 IMPRESSION Neurocognitive disorder with behavioral changes Normocytic anemia Dementia Anxiety & Depression A-fib - on Coumadin HTN MVP OA Asthma GERD Slow transit constipation PLAN Agree with admission. Still need to check EKG, CT head. Routine labs are also pending. Check dig level and INR. Consult pharmacy for Coumadin management. VS stable though HR has been mildly elevated - hx of A-fib, may need to investigate options for rate control. Normocytic anemia - check B12 level. Cachetic - check prealbumin level. Provide safe, supportive environment. 03/21/17 21:30 Remains confused. Will get collateral from family and discuss med options 03/22/17 IMPRESSION Neurocognitive disorder with behavioral changes Normocytic anemia Mild PCM Dementia Anxiety & Depression A-fib - on Coumadin HTN MVP OA Asthma GERD Slow transit constipation PLAN Digoxin level was normal at 0.8 though give her age and low BMI this may be on the high end for her - digoxin frequency was therefore decreased to every-other- day. HR was >100 on admission but since then has been in the 80s-90s - BP has been acceptable; could consider increasing cardizem if rate increases with reduction of dig. INR 1.85 - pharmacy managing. Prealbumin low at 13.5 - start nutritional supplements. Vit B12 was low end of normal - start supplementation. 03/22/17 17:16 Remains paranoid at times. Will discuss with family use of low dose antipsychotic
[2017-03-22] MEDS: MEMANTINE 10 MG TABLET PO SCH ×2 (19:41→23:42)
[2017-03-22] MEDS: MIRTAZAPINE 30 MG TABLET PO SCH ×2 (19:42→23:42)
[2017-03-22] MEDS ORDERED: LORazepam 1 MG TABLET PO ONE (21:00)
[2017-03-22] MEDS ORDERED: LORazepam 1 MG TABLET PO SCH (21:00)
[2017-03-23] MEDS: OMEPRAZOLE 20 MG CAPSULE PO SCH (06:01)
--- NOTE | 2017-03-23 07:42 | Pharmacy Consult ---
Pharmacy Consult-Warfarin - Laboratory Information 03/21/17 03/22/17 03/23/17 07:01 04:56 06:31 INR 1.85 H 1.85 H 1.97 H - Consult Information INR is coming into therapeutic range so we will repeat 5mg of warfarin today at noon. Thanks
[2017-03-23] MEDS: CYANOCOBALAMIN (B-12) 500mcg TABLET PO SCH (08:51)
[2017-03-23] MEDS: DIGOXIN 125 MCG TABLET PO SCH (08:51)
[2017-03-23] MEDS: POLYETHYL GLYCOL 3350 17gm PACKET PO SCH (08:52)
[2017-03-23] MEDS: ClonazePAM 0.5 MG TABLET PO SCH ×2 (08:52→20:08)
[2017-03-23] MEDS: WARFARIN 5 MG TABLET PO SCH ×2 (12:31→12:38)
[2017-03-23] MEDS: LORazepam 0.5 MG TABLET PO PRN (14:38)
[2017-03-23] MEDS: MEMANTINE 10 MG TABLET PO SCH (20:08)
[2017-03-23] MEDS: MIRTAZAPINE 30 MG TABLET PO SCH (20:08)
--- NOTE | 2017-03-23 20:29 | Neuropsych Progress Note ---
[facility] Subjective Date: 03/23/17 - Sujective/Severity of Illness Medications: Clonazepam (Klonopin) 0.5 mg PO BID [facility] Last Admin: 03/23/17 20:08 Dose: 0.5 mg Cyanocobalamin (Vit. B-12) 500 mcg PO DAILY [facility] Last Admin: 03/23/17 08:51 Dose: 500 mcg Digoxin (Lanoxin) 125 mcg PO Q2D [facility] Last Admin: 03/23/17 08:51 Dose: 125 mcg Diltiazem HCl (Cardizem Cd) 120 mg PO DAILY [facility] Last Admin: 03/23/17 08:52 Dose: 120 mg Haloperidol (Haldol) 0.5 mg PO Q6H PRN PRN Reason: Extreme agitation Last Admin: 03/22/17 15:39 Dose: 0.5 mg Haloperidol Lactate (Haldol) 0.5 mg IM Q6H PRN PRN Reason: Extreme agitation Lorazepam (Ativan) 1 mg PO O PRN PRN Reason: Agitation Lorazepam (Ativan) 0.5 mg PO Q6H PRN PRN Reason: Extreme agitation Last Admin: 03/23/17 14:38 Dose: 0.5 mg Lorazepam (Ativan Inj) 0.5 mg IM Q6H PRN PRN Reason: Extreme agitation Memantine (Namenda) 10 mg PO HS [facility] Last Admin: 03/23/17 20:08 Dose: 10 mg Mirtazapine (Remeron) 30 mg PO HS [facility] Last Admin: 03/23/17 20:08 Dose: 30 mg Omeprazole (Prilosec) 20 mg PO ACB [facility] Last Admin: 03/23/17 06:01 Dose: 20 mg Polyethylene Glycol (Miralax) 17 gm PO DAILY [facility] Last Admin: 03/23/17 08:52 Dose: 17 gm Warfarin Sodium (Coumadin Protocol) 0 MC NOTE [facility] Subjective: Patient seen and chart reviewed. Case discussed with treatment team. On interview, patient is talkative but pleasant. She minimizes all psych symptoms, reports being in a good mood, feeling safe, etc. It is not clear whether she is being guarded or these symptoms are intermittent in nature. She is somewhat intrusive as she attempts to escort me off the unit and snaps at the nurse for redirecting her. Patient denies any SI, HI or AVH. Patient denies any adverse side effects related to psychotropic medications. Nursing staff report patient continues to be impulsive but has been adherent with medications. Patient slept 11.25 hours overnight. VSS. Patient is eating well. Psychotropic PRNs required in the past 24 hours: multiple. Attempted again to contact daughter/DPOA Howard [phone] re: starting antipsychotic. Start Time: 15:40 Stop Time: 16:00 Mental Status Exam Vitals: Last Vital Signs Temp 98 F 03/23/17 20:22 Pulse 98 03/23/17 20:22 Resp 18 03/23/17 20:22 BP 124/55 03/23/17 20:22 Pulse Ox 96 03/23/17 20:22 Height: 1.52 m Weight: 38.5 kg - Mental Status Exam Muscle Strength/Tone: Normal Dressing: Casual Grooming: Good Attitude: Guarded Motor Activity: Retardation Eye Contact: Fair Speech: Slowed Volume: Soft Rhythm: Appropriate Rhythm Orientation: Oriented to person Mood: Neutral (labile affect) Rate of Thoughts: Delayed Thought Organization: [place] Associations: Flight of Ideas, Illogical Abstract Reasoning: Poor abstract reasoning Thought Content: Delusions, Paranoia Perception/Psychotic: Perception Normal Language: Naming Impaired Fund of Knowledge: Poor fund of knowledge Memory: Poor-immediate, Poor-recent Suicidal Ideation: None Homicidal Ideation: None Insight: Poor Judgement: Poor Impulse Control: Poor - Laboratory Result Diagrams: 03/21/17 07:01 03/19/17 13:22 Laboratory Results - last 24 hr 03/23/17 06:31 INR 1.97 H Assessment and Plan (1) Major neurocognitive disorder Problem details: with behavioral disturbance. Alzheimer's versus Vascular Current visit: Yes Status: Acute Hospital Course Summary Disclaimer: The visit summary below is not to be considered part of the above Progress Note. Hospital Course: 03/19/17 16:13 IMPRESSION Neurocognitive disorder with behavioral changes Normocytic anemia Dementia Anxiety & Depression A-fib - on Coumadin HTN MVP OA Asthma GERD Slow transit constipation PLAN Agree with admission. Still need to check EKG, CT head. Routine labs are also pending. Check dig level and INR. Consult pharmacy for Coumadin management. VS stable though HR has been mildly elevated - hx of A-fib, may need to investigate options for rate control. Normocytic anemia - check B12 level. Cachetic - check prealbumin level. Provide safe, supportive environment. 03/21/17 21:30 Remains confused. Will get collateral from family and discuss med options 03/22/17 IMPRESSION Neurocognitive disorder with behavioral changes Normocytic anemia Mild PCM Dementia Anxiety & Depression A-fib - on Coumadin HTN MVP OA Asthma GERD Slow transit constipation PLAN Digoxin level was normal at 0.8 though give her age and low BMI this may be on the high end for her - digoxin frequency was therefore decreased to every-other- day. HR was >100 on admission but since then has been in the 80s-90s - BP has been acceptable; could consider increasing cardizem if rate increases with reduction of dig. INR 1.85 - pharmacy managing. Prealbumin low at 13.5 - start nutritional supplements. Vit B12 was low end of normal - start supplementation. 03/22/17 17:16 Remains paranoid at times. Will discuss with family use of low dose antipsychotic 03/23/17 Psych: Agree with above plan - have attempted to contact DPOA on multiple occasions to obtain informed consent
[2017-03-23] MEDS: HALOPERIDOL 0.5 MG TABLET PO PRN (22:05)
[2017-03-24] MEDS: POLYETHYL GLYCOL 3350 17gm PACKET PO SCH (08:20)
[2017-03-24] MEDS: ClonazePAM 0.5 MG TABLET PO SCH ×3 (08:20→20:39)
[2017-03-24] MEDS: CYANOCOBALAMIN (B-12) 500mcg TABLET PO SCH (08:20)
[2017-03-24] MEDS: OMEPRAZOLE 20 MG CAPSULE PO SCH (08:20)
--- NOTE | 2017-03-24 09:21 | Pharmacy Consult ---
Pharmacy Consult-Warfarin - Laboratory Information 03/21/17 03/22/17 03/23/17 07:01 04:56 06:31 INR 1.85 H 1.85 H 1.97 H 03/24/17 06:45 INR 2.33 H - Consult Information PC is an 81 yo female that was admitted for Major Neurocognitive Disorder. The patient has a history of atrial fibrillation with anticoagulation therapy using warfarin. The goal INR for this patient is 2-3. Her home dose of warfarin was 4 mg orally daily. Date INR Dose 03/16 1.97 ? 03/20 ---- 4 mg 03/21 1.85 4 mg 03/22 1.85 5 MG 03/23 1.97 5 mg 03/24 2.33 plan: 4 mg Will give warfarin 4 mg po today. The Pharmacy will continue to monitor the INR' s and adjust the dosage of the Coumadin accordingly. Thank you for the Warfarin Dosing Protocol, Justine Arredondo RPh
[2017-03-24] MEDS ORDERED: WARFARIN 4 MG TABLET PO SCH (12:00)
--- NOTE | 2017-03-24 17:03 | Neuropsych Progress Note ---
Generations Subjective Date: 03/24/17 - Sujective/Severity of Illness Medications: Clonazepam (Klonopin) 0.5 mg PO BID [facility] Last Admin: 03/24/17 08:20 Dose: 0.5 mg Cyanocobalamin (Vit. B-12) 500 mcg PO DAILY [facility] Last Admin: 03/24/17 08:20 Dose: 500 mcg Digoxin (Lanoxin) 125 mcg PO Q2D [facility] Last Admin: 03/23/17 08:51 Dose: 125 mcg Diltiazem HCl (Cardizem Cd) 120 mg PO DAILY [facility] Last Admin: 03/24/17 08:20 Dose: 120 mg Haloperidol (Haldol) 0.5 mg PO Q6H PRN PRN Reason: Extreme agitation Last Admin: 03/23/17 22:05 Dose: 0.5 mg Haloperidol Lactate (Haldol) 0.5 mg IM Q6H PRN PRN Reason: Extreme agitation Lorazepam (Ativan) 1 mg PO O PRN PRN Reason: Agitation Lorazepam (Ativan) 0.5 mg PO Q6H PRN PRN Reason: Extreme agitation Last Admin: 03/23/17 14:38 Dose: 0.5 mg Lorazepam (Ativan Inj) 0.5 mg IM Q6H PRN PRN Reason: Extreme agitation Memantine (Namenda) 10 mg PO HS [facility] Last Admin: 03/23/17 20:08 Dose: 10 mg Mirtazapine (Remeron) 30 mg PO HS [facility] Last Admin: 03/23/17 20:08 Dose: 30 mg Omeprazole (Prilosec) 20 mg PO ACB [facility] Last Admin: 03/24/17 08:20 Dose: 20 mg Polyethylene Glycol (Miralax) 17 gm PO DAILY [facility] Last Admin: 03/24/17 08:20 Dose: 17 gm Warfarin Sodium (Coumadin Protocol) 0 [facility] NOTE [facility]AD Subjective: Patient seen and chart reviewed. Case discussed with treatment team. On interview, patient is talkative but pleasant. She reports feeling "scared" but does not make logical sense when she attempts to tell me why. Patient denies any SI, HI or AVH. Patient denies any adverse side effects related to psychotropic medications. Nursing staff report patient continues to be impulsive and became agitated and paranoid last night (see below). Patient slept well overnight after PRN administered. VSS. Patient is eating well. Attempted again to contact daughter/DPOA Howard [phone] re: starting antipsychotic. She did contact nursing staff but stated that she would not be available until after 10 pm. Left message asking for a couple of minutes to discuss meds on 03/25 as DPOA will need to be available by phone or alternate should be assigned. Per nursing: "Pt was sitting in day room at beginning of shift. Pt alert to person. Up SBA. Pt was fidgeting in her chair. She saw the two CNAs with a female pt and she began getting up, saying "I should go help". I explained to pt the CNAs are doing fine and at this time, they did not need any help. Pt then stated "well I guess I will just sit back and shut up and not bother anyone then". I assured pt we appreciate her wanting to help. Pt stated she was ready for bed. I asked if she could wait until she receives her HS meds. Pt agreed. After her meds, pt stated "if I could just go to bed now, I won't bother anybody". I told pt I would walk with her to her room and get her to bed. Pt said that would be fine. Pt voided prior to going to bed. Once in bed, pt stated she was tired. I then put on bed alarm and assured pt I would check on her every 15 minutes. Pt seemed happy with that. At 0, bed alarm sounded and upon approaching pt room, pt was up, stating she needed to use BR. After the BR, pt darted out in to the [place]. Pt was redirected back to her room by another RN. Pt was refusing to get back in bed. When this nurse entered the room , the pt was heard saying, "someone is going to get shot, who is getting shot tonight". Tried to reassure pt she is in hospital and safe, and no one is going to be shot. Pt was adamant and stated "yes someone will get shot, did you get the guns, are you going to shoot that man?". I reassured pt she is in a safe place and that man is not able to find her. I reminded her that her daughter brought her here because she knew she would be safe here. Pt stared at staff and said "bullshit! she don't know what she is doing". Pt continued to become increasingly agitated with increased anxiety. She accused staff of wanting to kill her, telling staff she used to trust them at one time but now she doesn't. PRN Haldol was taken to pt, but she refused to take it, stating "I would rather slit my throat than to take that". Pt continued to hold med and this nurse explained to pt if she wasn't going to take it, then I would need to have it back. Another RN said she would stay with pt and see if she could get her to take it. At 2200, the RN came out of room, and pt had taken the Haldol at that time. See PRN note for full details. Pt was up once since taking PRN, and was more calm with a more pleasant mood. She asked the RN to hold on to her so she could use the BR, as she was unsteady on her feet at that time. Pt returned back to bed without difficulty and went back to sleep. PRN med successful. No further instances of pt becoming agitated. Pt went to bed at 1999 but did not fall to sleep until 2244, after receiving the PRN. Pt daughter called after pt received the PRN. I explained to daughter why pt received it and daughter was fine with that. Daughter stated those behaviors aren't new to her. Stated the pt has suffered from insomnia all her life, and was not sleeping at the facility she came from. I explained to daughter, the pt had been sleeping all night since here. Pt continues to sleep at this time. Bed rails up x 2 and alarm on. Will continue to monitor." Start Time: 15:00 Stop Time: 15:20 Mental Status Exam Vitals: Last Vital Signs Temp 97.6 F 03/24/17 16:00 Pulse 66 03/24/17 16:00 Resp 22 03/24/17 16:00 BP 154/72 H 03/24/17 16:00 Pulse Ox 98 03/24/17 16:00 Height: 1.52 m Weight: 38.5 kg - Mental Status Exam Muscle Strength/Tone: Normal Dressing: Casual Grooming: Good Attitude: Suspicious Motor Activity: Retardation Eye Contact: Fair Speech: Slowed Volume: Soft Rhythm: Appropriate Rhythm Orientation: Oriented to person Mood: Other (reports mood is "scared", mildly anxious and irritable affect) Rate of Thoughts: Delayed Thought Organization: [place] Associations: Flight of Ideas, Illogical Abstract Reasoning: Poor abstract reasoning Thought Content: Delusions, Paranoia Perception/Psychotic: Psychotic Language: Naming Impaired Fund of Knowledge: Poor fund of knowledge Memory: Poor-immediate, Poor-recent Suicidal Ideation: Denies Homicidal Ideation: Denies Insight: Poor Judgement: Poor Impulse Control: Poor - Laboratory Result Diagrams: 03/21/17 07:01 03/19/17 13:22 Laboratory Results - last 24 hr 03/24/17 06:45 INR 2.33 H Assessment and Plan (1) Major neurocognitive disorder Problem details: with behavioral disturbance. Alzheimer's versus Vascular Current visit: Yes Status: Acute Hospital Course Summary Disclaimer: The visit summary below is not to be considered part of the above Progress Note. Hospital Course: 03/19/17 16:13 IMPRESSION Neurocognitive disorder with behavioral changes Normocytic anemia Dementia Anxiety & Depression A-fib - on Coumadin HTN MVP OA Asthma GERD Slow transit constipation PLAN Agree with admission. Still need to check EKG, CT head. Routine labs are also pending. Check dig level and INR. Consult pharmacy for Coumadin management. VS stable though HR has been mildly elevated - hx of A-fib, may need to investigate options for rate control. Normocytic anemia - check B12 level. Cachetic - check prealbumin level. Provide safe, supportive environment. 03/21/17 21:30 Remains confused. Will get collateral from family and discuss med options 03/22/17 IMPRESSION Neurocognitive disorder with behavioral changes Normocytic anemia Mild PCM Dementia Anxiety & Depression A-fib - on Coumadin HTN MVP OA Asthma GERD Slow transit constipation PLAN Digoxin level was normal at 0.8 though give her age and low BMI this may be on the high end for her - digoxin frequency was therefore decreased to every-other- day. HR was >100 on admission but since then has been in the 80s-90s - BP has been acceptable; could consider increasing cardizem if rate increases with reduction of dig. INR 1.85 - pharmacy managing. Prealbumin low at 13.5 - start nutritional supplements. Vit B12 was low end of normal - start supplementation. 03/22/17 17:16 Remains paranoid at times. Will discuss with family use of low dose antipsychotic 03/23/17 Psych: Agree with above plan - have attempted to contact DPOA on multiple occasions to obtain informed consent 03/24/17 Psych: Continue with PRN antipsychotics until able to obtain consent from DPOA - reportedly responds well to Haldol. If not regularly available by phone, alternate DPOA would be beneficial for best care of patient.
[2017-03-24] MEDS: MIRTAZAPINE 30 MG TABLET PO SCH ×2 (19:32→20:39)
[2017-03-24] MEDS: MEMANTINE 10 MG TABLET PO SCH ×2 (19:32→20:39)
[2017-03-24] MEDS: HALOPERIDOL 0.5 MG TABLET PO PRN (23:47)
[2017-03-25] MEDS: OMEPRAZOLE 20 MG CAPSULE PO SCH ×2 (05:03→07:18)
--- NOTE | 2017-03-25 08:35 | Pharmacy Consult ---
Pharmacy Consult-Warfarin - Laboratory Information 03/21/17 03/22/17 03/23/17 07:01 04:56 06:31 INR 1.85 H 1.85 H 1.97 H 03/24/17 03/25/17 06:45 05:11 INR 2.33 H 2.85 H - Consult Information PC is an 81 yo female that was admitted for Major Neurocognitive Disorder. The patient has a history of atrial fibrillation with anticoagulation therapy using warfarin. The goal INR for this patient is 2.0 to 3.0. Her home dose of warfarin was 4 mg orally daily. Date INR Dose 03/16 1.97 ? 03/20 ---- 4 mg 03/21 1.85 4 mg 03/22 1.85 5 MG 03/23 1.97 5 mg 03/24 2.33 4 mg 03/25 2.85 2.5 mg Will give warfarin 2.5 mg po today. The Pharmacy will continue to monitor the INR's and adjust the dosage of the Coumadin accordingly. Thank you for the Warfarin Dosing Protocol, Justine Arredondo RPh
[2017-03-25] MEDS: POLYETHYL GLYCOL 3350 17gm PACKET PO SCH (08:48)
[2017-03-25] MEDS: ClonazePAM 0.5 MG TABLET PO SCH ×2 (08:48→20:53)
[2017-03-25] MEDS: CYANOCOBALAMIN (B-12) 500mcg TABLET PO SCH (08:48)
[2017-03-25] MEDS: DIGOXIN 125 MCG TABLET PO SCH (08:48)
--- NOTE | 2017-03-25 09:33 | Progress Note ---
- Date 03/25/17 Subjective: Winsome was seen during the breakfast table. She was wearing a thick fleece robe , and states that she's always a little chilled and she's always been thin - then began to tell me all the exercising habits she used to keep in her younger years. She denies any chest pain or SOA; no abdominal pain or GI complaints. She states that she's been eating well but nursing documentation shows variable intake. Last BM on 03/24/17. Objective Vital signs: Temperature 98.5 F 03/25/17 08:00 Pulse Rate 90 03/25/17 08:48 Respiratory Rate 16 03/25/17 08:00 Blood Pressure 116/60 03/25/17 08:00 Pulse Oximetry 98 03/25/17 08:00 Height/Weight/BMI: Height 1.52 m Weight 38.5 kg Body Mass Index 16.5 - Constitutional Present: no acute distress, thin - Routine HEENT Exam Eye: Present: PERRL ENT: Present: mucous membranes moist, oropharynx clear - Routine Respiratory Exam Present: CTA bilaterally - Routine Cardiovascular Exam Present: RRR, S1, S2 - Routine Abdominal Exam Present: soft, normoactive bowel sounds, non distended - Routine Extremities Exam Present: no edema - Routine Musculoskeletal Exam Musculoskeletal: Present: moving extremities well - Routine Skin Exam Present: intact, dry, warm - Routine Neurological Exam Present: alert - Routine Psychiatric Exam Present: normal affect, cooperative Results - Labs CBC & Chem 7: 03/21/17 07:01 03/19/17 13:22 Assessment and Plan (1) Neurocognitive disorder Current visit: Yes Status: Acute Assessment and Plan: IMPRESSION Neurocognitive disorder with behavioral changes Normocytic anemia Mild PCM Dementia Anxiety & Depression A-fib - on Coumadin HTN MVP OA Asthma GERD Slow transit constipation PLAN HR still controlled since digoxin frequency was reduced to every-other day. INR therapeutic - pharmacy managing Coumadin dosing. Dr. Aceves's notes reviewed - seeking permission from [facility] to start an antipsychotic. DVT Prophylaxis: Coumadin Hospital Course Summary Disclaimer: The visit summary below is not to be considered part of the above Progress Note. Hospital Course: 03/19/17 16:13 IMPRESSION Neurocognitive disorder with behavioral changes Normocytic anemia Dementia Anxiety & Depression A-fib - on Coumadin HTN MVP OA Asthma GERD Slow transit constipation PLAN Agree with admission. Still need to check EKG, CT head. Routine labs are also pending. Check dig level and INR. Consult pharmacy for Coumadin management. VS stable though HR has been mildly elevated - hx of A-fib, may need to investigate options for rate control. Normocytic anemia - check B12 level. Cachetic - check prealbumin level. Provide safe, supportive environment. 03/21/17 21:30 Remains confused. Will get collateral from family and discuss med options 03/22/17 IMPRESSION Neurocognitive disorder with behavioral changes Normocytic anemia Mild PCM Dementia Anxiety & Depression A-fib - on Coumadin HTN MVP OA Asthma GERD Slow transit constipation PLAN Digoxin level was normal at 0.8 though give her age and low BMI this may be on the high end for her - digoxin frequency was therefore decreased to every-other- day. HR was >100 on admission but since then has been in the 80s-90s - BP has been acceptable; could consider increasing cardizem if rate increases with reduction of dig. INR 1.85 - pharmacy managing. Prealbumin low at 13.5 - start nutritional supplements. Vit B12 was low end of normal - start supplementation. 03/22/17 17:16 Remains paranoid at times. Will discuss with family use of low dose antipsychotic 03/23/17 Psych: Agree with above plan - have attempted to contact DPOA on multiple occasions to obtain informed consent 03/24/17 Psych: Continue with PRN antipsychotics until able to obtain consent from DPOA - reportedly responds well to Haldol. If not regularly available by phone, alternate DPOA would be beneficial for best care of patient. 03/25/17 HR still controlled since digoxin frequency was reduced to every-other day. INR therapeutic - pharmacy managing Coumadin dosing. Dr. Aceves's notes reviewed - seeking permission from DPOA to start an antipsychotic.
[2017-03-25] MEDS ORDERED: WARFARIN 2.5 MG TABLET PO SCH (12:00)
--- NOTE | 2017-03-25 16:31 | Neuropsych Progress Note ---
[facility] Subjective Date: 03/25/17 - Sujective/Severity of Illness Medications: Clonazepam (Klonopin) 0.5 mg PO BID [facility] Last Admin: 03/25/17 08:48 Dose: 0.5 mg Cyanocobalamin (Vit. B-12) 500 mcg PO DAILY [facility] Last Admin: 03/25/17 08:48 Dose: 500 mcg Digoxin (Lanoxin) 125 mcg PO Q2D [facility] Last Admin: 03/25/17 08:48 Dose: 125 mcg Diltiazem HCl (Cardizem Cd) 120 mg PO DAILY [facility] Last Admin: 03/25/17 08:48 Dose: 120 mg Haloperidol (Haldol) 0.5 mg PO Q6H PRN PRN Reason: Extreme agitation Last Admin: 03/24/17 23:47 Dose: 0.5 mg Haloperidol Lactate (Haldol) 0.5 mg IM Q6H PRN PRN Reason: Extreme agitation Lorazepam (Ativan) 1 mg PO O PRN PRN Reason: Agitation Lorazepam (Ativan) 0.5 mg PO Q6H PRN PRN Reason: Extreme agitation Last Admin: 03/23/17 14:38 Dose: 0.5 mg Lorazepam (Ativan Inj) 0.5 mg IM Q6H PRN PRN Reason: Extreme agitation Memantine (Namenda) 10 mg PO HS [facility] Last Admin: 03/24/17 20:39 Dose: Not Given Mirtazapine (Remeron) 30 mg PO HS [facility] Last Admin: 03/24/17 20:39 Dose: Not Given Omeprazole (Prilosec) 20 mg PO ACB [facility] Last Admin: 03/25/17 07:18 Dose: Not Given Polyethylene Glycol (Miralax) 17 gm PO DAILY [facility] Last Admin: 03/25/17 08:48 Dose: 17 gm Warfarin Sodium (Coumadin Protocol) 0 [facility] NOTE [facility]AD Subjective: Patient seen and chart reviewed. Case discussed with treatment team. On interview, patient is talkative and pleasant. She is in a good mood this afternoon and denies any psychiatric symptoms but typically becomes more paranoid, agitated in the evenings. Patient denies any SI, HI or AVH. Patient denies any adverse side effects related to psychotropic medications and no EPS noted on physical exam. VSS. Patient is eating well. I spoke with daughter/DPOA Howard today and she gave consent to start scheduled antipsychotic after discussion of risks/benefits including black box warning. Start Time: 14:00 Stop Time: 14:20 Mental Status Exam Vitals: Last Vital Signs Temp 98.5 F 03/25/17 08:00 Pulse 90 03/25/17 08:48 Resp 16 03/25/17 08:00 BP 116/60 03/25/17 08:00 Pulse Ox 98 03/25/17 08:00 Height: 1.52 m Weight: 38.5 kg - Mental Status Exam Muscle Strength/Tone: Normal Dressing: Casual Grooming: Good Attitude: Suspicious Motor Activity: Retardation Eye Contact: Fair Speech: Slowed Volume: Soft Rhythm: Appropriate Rhythm Orientation: Oriented to person Mood: Other (reports mood is good, appropriate affect during interview but sundowns in evenings) Rate of Thoughts: Delayed Thought Organization: [place] Associations: Flight of Ideas, Illogical Abstract Reasoning: Poor abstract reasoning Thought Content: Delusions, Paranoia Perception/Psychotic: Psychotic Language: Naming Impaired Fund of Knowledge: Poor fund of knowledge Memory: Poor-immediate, Poor-recent Suicidal Ideation: Denies Homicidal Ideation: Denies Insight: Poor Judgement: Poor Impulse Control: Poor - Laboratory Result Diagrams: 03/21/17 07:01 03/19/17 13:22 Laboratory Results - last 24 hr 03/25/17 05:11 INR 2.85 H Assessment and Plan (1) Major neurocognitive disorder Problem details: with behavioral disturbance. Alzheimer's versus Vascular Current visit: Yes Status: Acute Hospital Course Summary Disclaimer: The visit summary below is not to be considered part of the above Progress Note. Hospital Course: 03/19/17 16:13 IMPRESSION Neurocognitive disorder with behavioral changes Normocytic anemia Dementia Anxiety & Depression A-fib - on Coumadin HTN MVP OA Asthma GERD Slow transit constipation PLAN Agree with admission. Still need to check EKG, CT head. Routine labs are also pending. Check dig level and INR. Consult pharmacy for Coumadin management. VS stable though HR has been mildly elevated - hx of A-fib, may need to investigate options for rate control. Normocytic anemia - check B12 level. Cachetic - check prealbumin level. Provide safe, supportive environment. 03/21/17 21:30 Remains confused. Will get collateral from family and discuss med options 03/22/17 IMPRESSION Neurocognitive disorder with behavioral changes Normocytic anemia Mild PCM Dementia Anxiety & Depression A-fib - on Coumadin HTN MVP OA Asthma GERD Slow transit constipation PLAN Digoxin level was normal at 0.8 though give her age and low BMI this may be on the high end for her - digoxin frequency was therefore decreased to every-other- day. HR was >100 on admission but since then has been in the 80s-90s - BP has been acceptable; could consider increasing cardizem if rate increases with reduction of dig. INR 1.85 - pharmacy managing. Prealbumin low at 13.5 - start nutritional supplements. Vit B12 was low end of normal - start supplementation. 03/22/17 17:16 Remains paranoid at times. Will discuss with family use of low dose antipsychotic 03/23/17 Psych: Agree with above plan - have attempted to contact DPOA on multiple occasions to obtain informed consent 03/24/17 Psych: Continue with PRN antipsychotics until able to obtain consent from DPOA - reportedly responds well to Haldol. If not regularly available by phone, alternate DPOA would be beneficial for best care of patient. 03/25/17 HR still controlled since digoxin frequency was reduced to every-other day. INR therapeutic - pharmacy managing Coumadin dosing. Dr. Aceves's notes reviewed - seeking permission from DPOA to start an antipsychotic. 03/25/17: Will schedule Zyprexa 2.5mg PO at dinnertime. Monitor mood, behavior and response to treatment.
[2017-03-25] MEDS ORDERED: OLANZapine 2.5 MG TABLET PO SCH (18:00)
[2017-03-25] MEDS: MEMANTINE 10 MG TABLET PO SCH (20:53)
[2017-03-25] MEDS: MIRTAZAPINE 30 MG TABLET PO SCH (20:54)
[2017-03-25] MEDS: LORazepam 0.5 MG TABLET PO PRN (21:36)
[2017-03-26] MEDS: POLYETHYL GLYCOL 3350 17gm PACKET PO SCH (08:00)
[2017-03-26] MEDS: OMEPRAZOLE 20 MG CAPSULE PO SCH (08:00)
[2017-03-26] MEDS: CYANOCOBALAMIN (B-12) 500mcg TABLET PO SCH (08:00)
[2017-03-26] MEDS: ClonazePAM 0.5 MG TABLET PO SCH ×3 (08:00→22:52)
--- NOTE | 2017-03-26 11:12 | Pharmacy Consult ---
Pharmacy Consult-Warfarin - Laboratory Information 03/21/17 03/22/17 03/23/17 07:01 04:56 06:31 INR 1.85 H 1.85 H 1.97 H 03/24/17 03/25/17 03/26/17 06:45 05:11 08:25 INR 2.33 H 2.85 H 2.75 H - Consult Information PC is an 81 yo female that was admitted for Major Neurocognitive Disorder. The patient has a history of atrial fibrillation with anticoagulation therapy using warfarin. The goal INR for this patient is 2-3. Her home dose of warfarin was 4 mg orally daily. Date INR Dose 03/16 1.97 7 mg 03/20 ---- 4 mg 03/21 1.85 4 mg 03/22 1.85 5 mg 03/23 1.97 5 mg 03/24 2.33 4 mg 03/25 2.85 2.5 mg 03/26 2.75 3 mg I ordered Warfarin 3 mg by mouth today. The Pharmacy will continue to monitor the INR's and adjust the dosage of the Coumadin accordingly. Thank you for the Warfarin Dosing Protocol, Asif Mohan, Pharmacist
[2017-03-26] MEDS ORDERED: WARFARIN 3 MG TABLET PO SCH (12:00)
--- NOTE | 2017-03-26 12:50 | Neuropsych Progress Note ---
Gener[facility] Subjective Date: 03/26/17 - Sujective/Severity of Illness Medications: Clonazepam (Klonopin) 0.5 mg PO BID [facility] Last Admin: 03/26/17 08:00 Dose: 0.5 mg Cyanocobalamin (Vit. B-12) 500 mcg PO DAILY [facility] Last Admin: 03/26/17 08:00 Dose: 500 mcg Digoxin (Lanoxin) 125 mcg PO Q2D [facility] Last Admin: 03/25/17 08:48 Dose: 125 mcg Diltiazem HCl (Cardizem Cd) 120 mg PO DAILY [facility] Last Admin: 03/26/17 08:00 Dose: 120 mg Haloperidol (Haldol) 0.5 mg PO Q6H PRN PRN Reason: Extreme agitation Last Admin: 03/24/17 23:47 Dose: 0.5 mg Haloperidol Lactate (Haldol) 0.5 mg IM Q6H PRN PRN Reason: Extreme agitation Lorazepam (Ativan) 1 mg PO O PRN PRN Reason: Agitation Lorazepam (Ativan) 0.5 mg PO Q6H PRN PRN Reason: Extreme agitation Last Admin: 03/25/17 21:36 Dose: 0.5 mg Lorazepam (Ativan Inj) 0.5 mg IM Q6H PRN PRN Reason: Extreme agitation Memantine (Namenda) 10 mg PO HS [facility] Last Admin: 03/25/17 20:53 Dose: 10 mg Mirtazapine (Remeron) 30 mg PO HS [facility] Last Admin: 03/25/17 20:54 Dose: 30 mg Omeprazole (Prilosec) 20 mg PO ACB [facility] Last Admin: 03/26/17 08:00 Dose: 20 mg Polyethylene Glycol (Miralax) 17 gm PO DAILY [facility] Last Admin: 03/26/17 08:00 Dose: 17 gm Warfarin Sodium (Coumadin Protocol) 0 MC NOTE [facility] Warfarin Sodium (Coumadin) 3 mg PO NOON [facility] Stop: 03/26/17 23:59 Subjective: Pt seen and chart examined. Nursing reports pt remains irritable at night. Pt received Ativan at 2130 for agitation. On face to face the pt is pleasant but confused. She is only oriented to self. She denies any pain. Reports her mood is stable. Tolerating meds Start Time: 12:15 Stop Time: 12:30 Mental Status Exam Vitals: Last Vital Signs Temp 97.4 F 03/26/17 08:00 Pulse 98 03/26/17 08:00 Resp 22 03/26/17 08:00 BP 111/65 03/26/17 08:00 Pulse Ox 98 03/26/17 08:00 Height: 1.52 m Weight: 38.5 kg - Mental Status Exam Muscle Strength/Tone: Normal Dressing: Casual Grooming: Good Attitude: Suspicious Motor Activity: Retardation Eye Contact: Fair Speech: Slowed Volume: Soft Rhythm: Appropriate Rhythm Orientation: Oriented to person Mood: Other (reports mood is good, appropriate affect during interview but sundowns in evenings) Rate of Thoughts: Delayed Thought Organization: [place] Associations: Flight of Ideas, Illogical Abstract Reasoning: Poor abstract reasoning Thought Content: Delusions, Paranoia Perception/Psychotic: Psychotic Language: Naming Impaired Fund of Knowledge: Poor fund of knowledge Memory: Poor-immediate, Poor-recent Suicidal Ideation: Denies Homicidal Ideation: Denies Insight: Poor Judgement: Poor Impulse Control: Poor - Laboratory Result Diagrams: 03/21/17 07:01 03/19/17 13:22 Laboratory Results - last 24 hr 03/26/17 08:25 INR 2.75 H Assessment and Plan (1) Major neurocognitive disorder Problem details: with behavioral disturbance. Alzheimer's versus Vascular Current visit: Yes Status: Acute Hospital Course Summary Disclaimer: The visit summary below is not to be considered part of the above Progress Note. Hospital Course: 03/19/17 16:13 IMPRESSION Neurocognitive disorder with behavioral changes Normocytic anemia Dementia Anxiety & Depression A-fib - on Coumadin HTN MVP OA Asthma GERD Slow transit constipation PLAN Agree with admission. Still need to check EKG, CT head. Routine labs are also pending. Check dig level and INR. Consult pharmacy for Coumadin management. VS stable though HR has been mildly elevated - hx of A-fib, may need to investigate options for rate control. Normocytic anemia - check B12 level. Cachetic - check prealbumin level. Provide safe, supportive environment. 03/21/17 21:30 Remains confused. Will get collateral from family and discuss med options 03/22/17 IMPRESSION Neurocognitive disorder with behavioral changes Normocytic anemia Mild PCM Dementia Anxiety & Depression A-fib - on Coumadin HTN MVP OA Asthma GERD Slow transit constipation PLAN Digoxin level was normal at 0.8 though give her age and low BMI this may be on the high end for her - digoxin frequency was therefore decreased to every-other- day. HR was >100 on admission but since then has been in the 80s-90s - BP has been acceptable; could consider increasing cardizem if rate increases with reduction of dig. INR 1.85 - pharmacy managing. Prealbumin low at 13.5 - start nutritional supplements. Vit B12 was low end of normal - start supplementation. 03/22/17 17:16 Remains paranoid at times. Will discuss with family use of low dose antipsychotic 03/23/17 Psych: Agree with above plan - have attempted to contact DPOA on multiple occasions to obtain informed consent 03/24/17 Psych: Continue with PRN antipsychotics until able to obtain consent from DPOA - reportedly responds well to Haldol. If not regularly available by phone, alternate DPOA would be beneficial for best care of patient. 03/25/17 HR still controlled since digoxin frequency was reduced to every-other day. INR therapeutic - pharmacy managing Coumadin dosing. Dr. Aceves's notes reviewed - seeking permission from DPOA to start an antipsychotic. 03/25/17: Will schedule Zyprexa 2.5mg PO at dinnertime. Monitor mood, behavior and response to treatment. 03/26/17 12:50 Remains agitated at times. increase Zyprexa to 5mg at dinner time
[2017-03-26] MEDS: OLANZapine 5 MG TABLET PO SCH (17:14)
[2017-03-26] MEDS: MIRTAZAPINE 30 MG TABLET PO SCH ×2 (19:37→22:52)
[2017-03-26] MEDS: MEMANTINE 10 MG TABLET PO SCH ×2 (19:37→22:52)
[2017-03-27] MEDS: OMEPRAZOLE 20 MG CAPSULE PO SCH (06:27)
[2017-03-27] MEDS: CYANOCOBALAMIN (B-12) 500mcg TABLET PO SCH (08:01)
[2017-03-27] MEDS: POLYETHYL GLYCOL 3350 17gm PACKET PO SCH (08:01)
[2017-03-27] MEDS: ClonazePAM 0.5 MG TABLET PO SCH ×2 (08:01→20:00)
[2017-03-27] MEDS: DIGOXIN 125 MCG TABLET PO SCH (08:01)
--- NOTE | 2017-03-27 09:11 | Pharmacy Consult ---
Pharmacy Consult-Warfarin - Laboratory Information 03/21/17 03/22/17 03/23/17 07:01 04:56 06:31 INR 1.85 H 1.85 H 1.97 H 03/24/17 03/25/17 03/26/17 06:45 05:11 08:25 INR 2.33 H 2.85 H 2.75 H 03/27/17 07:12 INR 2.74 H - Consult Information Warfarin 3mg po ordered for noon today. Will continue to monitor. Thank you.
--- NOTE | 2017-03-27 11:16 | Neuropsych Progress Note ---
Gener[facility] Subjective Date: 03/27/17 - Sujective/Severity of Illness Medications: Clonazepam (Klonopin) 0.5 mg PO BID [facility] Last Admin: 03/27/17 08:01 Dose: 0.5 mg Cyanocobalamin (Vit. B-12) 500 mcg PO DAILY [facility] Last Admin: 03/27/17 08:01 Dose: 500 mcg Digoxin (Lanoxin) 125 mcg PO Q2D [facility] Last Admin: 03/27/17 08:01 Dose: 125 mcg Diltiazem HCl (Cardizem Cd) 120 mg PO DAILY [facility] Last Admin: 03/27/17 08:01 Dose: 120 mg Haloperidol (Haldol) 0.5 mg PO Q6H PRN PRN Reason: Extreme agitation Last Admin: 03/24/17 23:47 Dose: 0.5 mg Haloperidol Lactate (Haldol) 0.5 mg IM Q6H PRN PRN Reason: Extreme agitation Lorazepam (Ativan) 1 mg PO O PRN PRN Reason: Agitation Lorazepam (Ativan) 0.5 mg PO Q6H PRN PRN Reason: Extreme agitation Last Admin: 03/25/17 21:36 Dose: 0.5 mg Lorazepam (Ativan Inj) 0.5 mg IM Q6H PRN PRN Reason: Extreme agitation Memantine (Namenda) 10 mg PO HS [facility] Last Admin: 03/26/17 22:52 Dose: Not Given Mirtazapine (Remeron) 30 mg PO HS [facility] Last Admin: 03/26/17 22:52 Dose: Not Given Olanzapine (Zyprexa) 5 mg PO 18 [facility] Last Admin: 03/26/17 17:14 Dose: 5 mg Omeprazole (Prilosec) 20 mg PO ACB [facility] Last Admin: 03/27/17 06:27 Dose: 20 mg Polyethylene Glycol (Miralax) 17 gm PO DAILY [facility] Last Admin: 03/27/17 08:01 Dose: 17 gm Warfarin Sodium (Coumadin Protocol) 0 MC NOTE [facility] Warfarin Sodium (Coumadin) 3 mg PO NOON [facility] Stop: 03/27/17 12:30 Subjective: Pt seen and chart examined. Nursing reports pt did a little better last night. Slept well and has a good appetite. On face to face the pt states she is doing well. She is pleasant but confused. She is only oriented to self. She reports tolerating her medication well. Start Time: 11:00 Stop Time: 11:15 Mental Status Exam Vitals: Last Vital Signs Temp 97.4 F 03/27/17 07:00 Pulse 100 03/27/17 08:01 Resp 20 03/27/17 07:00 BP 128/72 03/27/17 07:00 Pulse Ox 98 03/27/17 07:00 Height: 1.52 m Weight: 38.5 kg - Mental Status Exam Muscle Strength/Tone: Normal Dressing: Casual Grooming: Good Attitude: Suspicious Motor Activity: Retardation Eye Contact: Fair Speech: Slowed Volume: Soft Rhythm: Appropriate Rhythm Orientation: Oriented to person Mood: Other (reports mood is good, appropriate affect during interview but sundowns in evenings) Rate of Thoughts: Delayed Thought Organization: [place] Associations: Flight of Ideas, Illogical Abstract Reasoning: Poor abstract reasoning Thought Content: Delusions, Paranoia Perception/Psychotic: Psychotic Language: Naming Impaired Fund of Knowledge: Poor fund of knowledge Memory: Poor-immediate, Poor-recent Suicidal Ideation: Denies Homicidal Ideation: Denies Insight: Poor Judgement: Poor Impulse Control: Poor - Laboratory Result Diagrams: 03/21/17 07:01 03/19/17 13:22 Laboratory Results - last 24 hr 03/27/17 07:12 INR 2.74 H Assessment and Plan (1) Major neurocognitive disorder Problem details: with behavioral disturbance. Alzheimer's versus Vascular Current visit: Yes Status: Acute Hospital Course Summary Disclaimer: The visit summary below is not to be considered part of the above Progress Note. Hospital Course: 03/19/17 16:13 IMPRESSION Neurocognitive disorder with behavioral changes Normocytic anemia Dementia Anxiety & Depression A-fib - on Coumadin HTN MVP OA Asthma GERD Slow transit constipation PLAN Agree with admission. Still need to check EKG, CT head. Routine labs are also pending. Check dig level and INR. Consult pharmacy for Coumadin management. VS stable though HR has been mildly elevated - hx of A-fib, may need to investigate options for rate control. Normocytic anemia - check B12 level. Cachetic - check prealbumin level. Provide safe, supportive environment. 03/21/17 21:30 Remains confused. Will get collateral from family and discuss med options 03/22/17 IMPRESSION Neurocognitive disorder with behavioral changes Normocytic anemia Mild PCM Dementia Anxiety & Depression A-fib - on Coumadin HTN MVP OA Asthma GERD Slow transit constipation PLAN Digoxin level was normal at 0.8 though give her age and low BMI this may be on the high end for her - digoxin frequency was therefore decreased to every-other- day. HR was >100 on admission but since then has been in the 80s-90s - BP has been acceptable; could consider increasing cardizem if rate increases with reduction of dig. INR 1.85 - pharmacy managing. Prealbumin low at 13.5 - start nutritional supplements. Vit B12 was low end of normal - start supplementation. 03/22/17 17:16 Remains paranoid at times. Will discuss with family use of low dose antipsychotic 03/23/17 Psych: Agree with above plan - have attempted to contact DPOA on multiple occasions to obtain informed consent 03/24/17 Psych: Continue with PRN antipsychotics until able to obtain consent from DPOA - reportedly responds well to Haldol. If not regularly available by phone, alternate DPOA would be beneficial for best care of patient. 03/25/17 HR still controlled since digoxin frequency was reduced to every-other day. INR therapeutic - pharmacy managing Coumadin dosing. Dr. Aceves's notes reviewed - seeking permission from DPOA to start an antipsychotic. 03/25/17: Will schedule Zyprexa 2.5mg PO at dinnertime. Monitor mood, behavior and response to treatment. 03/26/17 12:50 Remains agitated at times. increase Zyprexa to 5mg at dinner time 03/27/17 11:16 No behaviors today. Remains confused. Continue current care
[2017-03-27] MEDS ORDERED: WARFARIN 3 MG TABLET PO SCH (12:00)
[2017-03-27] MEDS: HALOPERIDOL 0.5 MG TABLET PO PRN ×2 (12:41→20:00)
[2017-03-27] MEDS: LORazepam 0.5 MG TABLET PO PRN ×2 (12:41→19:59)
[2017-03-27] MEDS: OLANZapine 5 MG TABLET PO SCH (17:08)
[2017-03-27] MEDS: MEMANTINE 10 MG TABLET PO SCH (20:00)
[2017-03-27] MEDS: MIRTAZAPINE 30 MG TABLET PO SCH (20:00)
--- NOTE | 2017-03-28 07:47 | Pharmacy Consult ---
Pharmacy Consult-Warfarin - Laboratory Information 03/21/17 03/22/17 03/23/17 07:01 04:56 06:31 INR 1.85 H 1.85 H 1.97 H 03/24/17 03/25/17 03/26/17 06:45 05:11 08:25 INR 2.33 H 2.85 H 2.75 H 03/27/17 07:12 INR 2.74 H - Consult Information Will order warfarin 3mg po daily and change INR order from daily to Winter Cueto, Tim. Thank you.
[2017-03-28] MEDS: POLYETHYL GLYCOL 3350 17gm PACKET PO SCH (08:36)
[2017-03-28] MEDS: OMEPRAZOLE 20 MG CAPSULE PO SCH (08:36)
[2017-03-28] MEDS: ClonazePAM 0.5 MG TABLET PO SCH ×2 (08:36→20:10)
[2017-03-28] MEDS: CYANOCOBALAMIN (B-12) 500mcg TABLET PO SCH (08:36)
[2017-03-28] MEDS: MAG-AL + SIM ORAL LIQUID 30ml PO PRN (10:24)
[2017-03-28] MEDS: WARFARIN 3 MG TABLET PO SCH (11:34)
[2017-03-28] MEDS: OLANZapine 5 MG TABLET PO SCH (17:14)
--- NOTE | 2017-03-28 18:46 | Neuropsych Progress Note ---
[facility] Subjective Date: 03/28/17 - Sujective/Severity of Illness Medications: Al Hydroxide/Mg Hydroxide (Maalox Plus) 30 ml PO Q6H PRN PRN Reason: Indigestion Last Admin: 03/28/17 10:24 Dose: 30 ml Clonazepam (Klonopin) 0.5 mg PO BID [facility] Last Admin: 03/28/17 08:36 Dose: 0.5 mg Cyanocobalamin (Vit. B-12) 500 mcg PO DAILY [facility] Last Admin: 03/28/17 08:36 Dose: 500 mcg Digoxin (Lanoxin) 125 mcg PO Q2D [facility] Last Admin: 03/27/17 08:01 Dose: 125 mcg Diltiazem HCl (Cardizem Cd) 120 mg PO DAILY [facility] Last Admin: 03/28/17 08:37 Dose: 120 mg Haloperidol (Haldol) 0.5 mg PO Q6H PRN PRN Reason: Extreme agitation Last Admin: 03/27/17 20:00 Dose: 0.5 mg Haloperidol Lactate (Haldol) 0.5 mg IM Q6H PRN PRN Reason: Extreme agitation Lorazepam (Ativan) 1 mg PO O PRN PRN Reason: Agitation Lorazepam (Ativan) 0.5 mg PO Q6H PRN PRN Reason: Extreme agitation Last Admin: 03/27/17 19:59 Dose: 0.5 mg Lorazepam (Ativan Inj) 0.5 mg IM Q6H PRN PRN Reason: Extreme agitation Memantine (Namenda) 10 mg PO HS [facility] Last Admin: 03/27/17 20:00 Dose: 10 mg Mirtazapine (Remeron) 30 mg PO HS [facility] Last Admin: 03/27/17 20:00 Dose: 30 mg Olanzapine (Zyprexa) 5 mg PO 18 [facility] Last Admin: 03/28/17 17:14 Dose: 5 mg Omeprazole (Prilosec) 20 mg PO ACB [facility] Last Admin: 03/28/17 08:36 Dose: 20 mg Polyethylene Glycol (Miralax) 17 gm PO DAILY [facility] Last Admin: 03/28/17 08:36 Dose: 17 gm Warfarin Sodium (Coumadin Protocol) 0 MC NOTE [facility] Warfarin Sodium (Coumadin) 3 mg PO NOON [facility] Last Admin: 03/28/17 11:34 Dose: 3 mg Subjective: Patient seen and chart reviewed. Case discussed with treatment team. On interview, patient is pleasant and conversational though aphasic. She denies any pain or physical complaints, and reports feeling safe here. Patient denies any SI, HI or AVH. Patient denies any adverse side effects related to psychotropic medications. Nursing staff report patient is still sundowning and becoming more anxious at night, wanting someone to sit with her as she falls asleep. Patient slept well overnight. VSS. Patient is eating well. Psychotropic PRNs required in the past 24 hours: Ativan x2, Haldol x2. Start Time: 14:00 Stop Time: 14:20 Mental Status Exam Vitals: Last Vital Signs Temp 97.7 F 03/28/17 15:55 Pulse 87 03/28/17 15:55 Resp 20 03/28/17 15:55 BP 121/65 03/28/17 15:55 Pulse Ox 99 03/28/17 15:55 Height: 1.52 m Weight: 38.5 kg - Mental Status Exam Muscle Strength/Tone: Normal Dressing: Casual Grooming: Good Attitude: Suspicious (improving, intermittent ) Motor Activity: Retardation Eye Contact: Fair Speech: Other Volume: Soft Rhythm: Appropriate Rhythm Orientation: Oriented to person Mood: Neutral (during interview, labile affect - worse in evenings) Rate of Thoughts: Delayed Thought Organization: [place] Associations: Flight of Ideas, Illogical Abstract Reasoning: Poor abstract reasoning Thought Content: Delusions, Paranoia Perception/Psychotic: Psychotic Language: Naming Impaired Fund of Knowledge: Poor fund of knowledge Memory: Poor-immediate, Poor-recent Suicidal Ideation: Denies Homicidal Ideation: Denies Insight: Poor Judgement: Poor Impulse Control: Poor - Laboratory Result Diagrams: 03/21/17 07:01 03/19/17 13:22 Assessment and Plan (1) Major neurocognitive disorder Problem details: with behavioral disturbance. Alzheimer's versus Vascular Current visit: Yes Status: Acute Hospital Course Summary Disclaimer: The visit summary below is not to be considered part of the above Progress Note. Hospital Course: 03/19/17 16:13 IMPRESSION Neurocognitive disorder with behavioral changes Normocytic anemia Dementia Anxiety & Depression A-fib - on Coumadin HTN MVP OA Asthma GERD Slow transit constipation PLAN Agree with admission. Still need to check EKG, CT head. Routine labs are also pending. Check dig level and INR. Consult pharmacy for Coumadin management. VS stable though HR has been mildly elevated - hx of A-fib, may need to investigate options for rate control. Normocytic anemia - check B12 level. Cachetic - check prealbumin level. Provide safe, supportive environment. 03/21/17 21:30 Remains confused. Will get collateral from family and discuss med options 03/22/17 IMPRESSION Neurocognitive disorder with behavioral changes Normocytic anemia Mild PCM Dementia Anxiety & Depression A-fib - on Coumadin HTN MVP OA Asthma GERD Slow transit constipation PLAN Digoxin level was normal at 0.8 though give her age and low BMI this may be on the high end for her - digoxin frequency was therefore decreased to every-other- day. HR was >100 on admission but since then has been in the 80s-90s - BP has been acceptable; could consider increasing cardizem if rate increases with reduction of dig. INR 1.85 - pharmacy managing. Prealbumin low at 13.5 - start nutritional supplements. Vit B12 was low end of normal - start supplementation. 03/22/17 17:16 Remains paranoid at times. Will discuss with family use of low dose antipsychotic 03/23/17 Psych: Agree with above plan - have attempted to contact DPOA on multiple occasions to obtain informed consent 03/24/17 Psych: Continue with PRN antipsychotics until able to obtain consent from DPOA - reportedly responds well to Haldol. If not regularly available by phone, alternate DPOA would be beneficial for best care of patient. 03/25/17 HR still controlled since digoxin frequency was reduced to every-other day. INR therapeutic - pharmacy managing Coumadin dosing. Dr. Aceves's notes reviewed - seeking permission from DPOA to start an antipsychotic. 03/25/17: Will schedule Zyprexa 2.5mg PO at dinnertime. Monitor mood, behavior and response to treatment. 03/26/17 12:50 Remains agitated at times. increase Zyprexa to 5mg at dinner time 03/27/17 11:16 No behaviors today. Remains confused. Continue current care 03/28/17 Psych: Increase Zyprexa to 7.5mg PO at dinnertime as still has intermittent agitation requiring multiple PRNs in past 24 hours.
[2017-03-28] MEDS: MIRTAZAPINE 30 MG TABLET PO SCH (20:10)
[2017-03-28] MEDS: MEMANTINE 10 MG TABLET PO SCH (20:10)
[2017-03-28] MEDS ORDERED: OLANZapine 2.5 MG TABLET PO ONE (21:00)
[2017-03-29] MEDS: OMEPRAZOLE 20 MG CAPSULE PO SCH (05:31)
--- NOTE | 2017-03-29 07:51 | Pharmacy Consult ---
Pharmacy Consult-Warfarin - Laboratory Information 03/21/17 03/22/17 03/23/17 07:01 04:56 06:31 INR 1.85 H 1.85 H 1.97 H 03/24/17 03/25/17 03/26/17 06:45 05:11 08:25 INR 2.33 H 2.85 H 2.75 H 03/27/17 03/29/17 07:12 07:00 INR 2.74 H 2.39 H - Consult Information INR is in range. Will keep warfarin at 3mg po daily at noon. Thank you.
[2017-03-29] MEDS: CYANOCOBALAMIN (B-12) 500mcg TABLET PO SCH (08:05)
[2017-03-29] MEDS: POLYETHYL GLYCOL 3350 17gm PACKET PO SCH (08:05)
[2017-03-29] MEDS: DIGOXIN 125 MCG TABLET PO SCH (08:05)
[2017-03-29] MEDS: ClonazePAM 0.5 MG TABLET PO SCH ×2 (08:05→19:35)
--- NOTE | 2017-03-29 08:38 | Progress Note ---
<Delmi Beltran - Last Filed: 03/29/17 08:30> - Date 03/29/17 Subjective: Winsome is seen today in follow up for her major neurocognitive disorder. She is seen in the dining room, devouring her second plate of breakfast. She denies any complaints or concerns including no chest pain, shortness of breath, abdominal pain, nausea, vomiting or dysuria. When permission to do physical exam is requested, she jokingly states "I think I left my heart at home" and then openly admits that she often speaks without thinking, smiling during both statements. Nursing notes and medical chart are reviewed and indicate that she continues to have some increased anxiety, especially in the evenings, most likely related to sundowners and often requests someone to sit with her until she falls a sleep. She continues to require occasional PRN medications. Her appetite is hearty and her bowels are moving. No recent CBC or BMP. Recent INR was subtherapeutic at 2.37 with pharmacy to manage. Objective Vital signs: Temperature 98.1 F 03/28/17 23:20 Pulse Rate 88 03/29/17 08:05 Respiratory Rate 16 03/28/17 23:20 Blood Pressure 118/58 03/28/17 23:20 Pulse Oximetry 97 03/28/17 23:20 Height/Weight/BMI: Height 5 ft Weight 87 lb 4.8 oz Body Mass Index 16.5 Comments: Sitting in the dining room, eating breakfast and in pleasant mood. Jokes on exam. - Constitutional Present: no acute distress, well nourished, well developed, cooperative - Routine HEENT Exam Head: Present: normocephalic, atraumatic Eye: Present: PERRL. Absent: conjunctival icterus ENT: Present: mucous membranes moist, dentition normal - Routine Respiratory Exam Present: CTA bilaterally. Absent: rhonchi, wheezes, crackles Comments: no coughing or choking noted while eating. - Routine Cardiovascular Exam Present: S1, S2, irregularly irregular - Routine Abdominal Exam Present: soft, normoactive bowel sounds, non tender. Absent: rebound, guarding - Routine Extremities Exam Present: no edema, non tender, pulses intact - Routine Back/Spine/Pelvis Exam Back/Spine: Present: kyphosis. Absent: vertebral tenderness - Routine Musculoskeletal Exam Musculoskeletal: Present: no clubbing or cyanosis, moving extremities well - Routine Skin Exam Present: intact, dry, warm. Absent: jaundice Comments: afebrile. - Routine Neurological Exam Present: alert, moving all extremities, normal speech - Routine Lymphatic Exam Lymphatic: Absent: lymphedema - Routine Psychiatric Exam Present: cooperative. Absent: suicidal ideation, homicidal ideation Comments: joking on exam, pleasant. Results - Labs CBC & Chem 7: 03/21/17 07:01 03/19/17 13:22 Assessment and Plan (1) Neurocognitive disorder Current visit: Yes Status: Acute Assessment and Plan: IMPRESSION Neurocognitive disorder with behavioral changes Normocytic anemia Mild PCM Dementia Anxiety & Depression A-fib - on Coumadin HTN MVP OA Asthma GERD Slow transit constipation PLAN-03/29/17: Overall, Winsome is doing well. She continues to have episodes of increased anxiety, especially at night with owners and continues to require occasional PRN medications. Continue psychiatric care per Dr. Aceves and team. Continue to provide safe and supportive environment. Zyprexa 7.5mg added at bedtime per Dr. Aceves in light of persistent agitation in evenings. Cardiac exam reveals persistent irregularly irregular rate and rhythm but rate remains controlled. Continue digoxin every other day and continue to monitor closely. Blood pressure remains stable and patient remains afebrile. INR subtheraputic at 2.37 with pharmacy to manage. Appreciate pharmacy's assistance. Will recheck CBC and BMP in AM in light of recent medication changes to monitor blood counts, electrolytes and renal function. DVT Prophylaxis: Coumadin GI Prophylaxis: other (Priolsec) Resuscitation Status: Full Code - Time spent with patient Time with patient PN: 35 minutes Hospital Course Summary Disclaimer: The visit summary below is not to be considered part of the above Progress Note. Hospital Course: 03/19/17 16:13 IMPRESSION Neurocognitive disorder with behavioral changes Normocytic anemia Dementia Anxiety & Depression A-fib - on Coumadin HTN MVP OA Asthma GERD Slow transit constipation PLAN Agree with admission. Still need to check EKG, CT head. Routine labs are also pending. Check dig level and INR. Consult pharmacy for Coumadin management. VS stable though HR has been mildly elevated - hx of A-fib, may need to investigate options for rate control. Normocytic anemia - check B12 level. Cachetic - check prealbumin level. Provide safe, supportive environment. 03/21/17 21:30 Remains confused. Will get collateral from family and discuss med options 03/22/17 IMPRESSION Neurocognitive disorder with behavioral changes Normocytic anemia Mild PCM Dementia Anxiety & Depression A-fib - on Coumadin HTN MVP OA Asthma GERD Slow transit constipation PLAN Digoxin level was normal at 0.8 though give her age and low BMI this may be on the high end for her - digoxin frequency was therefore decreased to every-other- day. HR was >100 on admission but since then has been in the 80s-90s - BP has been acceptable; could consider increasing cardizem if rate increases with reduction of dig. INR 1.85 - pharmacy managing. Prealbumin low at 13.5 - start nutritional supplements. Vit B12 was low end of normal - start supplementation. 03/22/17 17:16 Remains paranoid at times. Will discuss with family use of low dose antipsychotic 03/23/17 Psych: Agree with above plan - have attempted to contact DPOA on multiple occasions to obtain informed consent 03/24/17 Psych: Continue with PRN antipsychotics until able to obtain consent from DPOA - reportedly responds well to Haldol. If not regularly available by phone, alternate DPOA would be beneficial for best care of patient. 03/25/17 HR still controlled since digoxin frequency was reduced to every-other day. INR therapeutic - pharmacy managing Coumadin dosing. Dr. Aceves's notes reviewed - seeking permission from DPOA to start an antipsychotic. 03/25/17: Will schedule Zyprexa 2.5mg PO at dinnertime. Monitor mood, behavior and response to treatment. 03/26/17 12:50 Remains agitated at times. increase Zyprexa to 5mg at dinner time 03/27/17 11:16 No behaviors today. Remains confused. Continue current care 03/28/17 Psych: Increase Zyprexa to 7.5mg PO at dinnertime as still has intermittent agitation requiring multiple PRNs in past 24 hours. PLAN-03/29/17: Overall, Winsome is doing well. She continues to have episodes of increased anxiety, especially at night with owners and continues to require occasional PRN medications. Continue psychiatric care per Dr. Aceves and team. Continue to provide safe and supportive environment. Zyprexa 7.5mg added at bedtime per Dr. Aceves in light of persistent agitation in evenings. Cardiac exam reveals persistent irregularly irregular rate and rhythm but rate remains controlled. Continue digoxin every other day and continue to monitor closely. Blood pressure remains stable and patient remains afebrile. INR subtheraputic at 2.37 with pharmacy to manage. Appreciate pharmacy's assistance. Will recheck CBC and BMP in AM in light of recent medication changes to monitor blood counts, electrolytes and renal function. <MarquisVannessa L - Last Filed: 03/29/17 21:22> - Date 03/29/17 Objective Vital signs: Temperature 98.6 F 03/29/17 16:00 Pulse Rate 81 03/29/17 16:00 Respiratory Rate 16 03/29/17 16:00 Blood Pressure 140/61 H 03/29/17 16:00 Pulse Oximetry 99 03/29/17 16:00 Height/Weight/BMI: Height 1.52 m Weight 39.599 kg Body Mass Index 16.5 Results - Labs CBC & Chem 7: 03/21/17 07:01 03/19/17 13:22 Assessment and Plan (1) Neurocognitive disorder Current visit: Yes Status: Acute Assessment and Plan: I have independently evaluated and examined this patient. I reviewed the chart, the patient's history, and the CLAIMS DIRECTOR/PA's documented findings as above. We discussed and formulated the assessment and plan as above with additions as below: Mrs. Bosch reports having no palpitations or chest pain. When asked about dyspnea she rambled and did not stay on topic. Nursing reported no specific concerns today. Degenerative changes are present in the small joints of the hands Respirations are nonlabored, breath sounds clear Slightly irregular rhythm with low-grade tachycardia Without lower extremity edema Laboratory data reviewed, A1c 5.1, lipids unremarkable, B-12 306, prealbumin 13.5, TSH 3.38, last hemoglobin 11.8 on 03/21. INR therapeutic. Medically stable, no new recommendations. Hospital Course Summary Disclaimer: The visit summary below is not to be considered part of the above Progress Note.
[2017-03-29] MEDS: WARFARIN 3 MG TABLET PO SCH (13:55)
--- NOTE | 2017-03-29 16:10 | Neuropsych Progress Note ---
[facility] Subjective Date: 03/29/17 - Sujective/Severity of Illness Medications: Al Hydroxide/Mg Hydroxide (Maalox Plus) 30 ml PO Q6H PRN PRN Reason: Indigestion Last Admin: 03/28/17 10:24 Dose: 30 ml Clonazepam (Klonopin) 0.5 mg PO BID [facility] Last Admin: 03/29/17 08:05 Dose: 0.5 mg Cyanocobalamin (Vit. B-12) 500 mcg PO DAILY [facility] Last Admin: 03/29/17 08:05 Dose: 500 mcg Digoxin (Lanoxin) 125 mcg PO Q2D [facility] Last Admin: 03/29/17 08:05 Dose: 125 mcg Diltiazem HCl (Cardizem Cd) 120 mg PO DAILY [facility] Last Admin: 03/29/17 08:05 Dose: 120 mg Haloperidol (Haldol) 0.5 mg PO Q6H PRN PRN Reason: Extreme agitation Last Admin: 03/27/17 20:00 Dose: 0.5 mg Haloperidol Lactate (Haldol) 0.5 mg IM Q6H PRN PRN Reason: Extreme agitation Lorazepam (Ativan) 1 mg PO O PRN PRN Reason: Agitation Lorazepam (Ativan) 0.5 mg PO Q6H PRN PRN Reason: Extreme agitation Last Admin: 03/27/17 19:59 Dose: 0.5 mg Lorazepam (Ativan Inj) 0.5 mg IM Q6H PRN PRN Reason: Extreme agitation Memantine (Namenda) 10 mg PO HS [facility] Last Admin: 03/28/17 20:10 Dose: 10 mg Mirtazapine (Remeron) 30 mg PO HS [facility] Last Admin: 03/28/17 20:10 Dose: 30 mg Olanzapine (Zyprexa) 7.5 mg PO 18 SAAD Omeprazole (Prilosec) 20 mg PO ACB [facility] Last Admin: 03/29/17 05:31 Dose: 20 mg Polyethylene Glycol (Miralax) 17 gm PO DAILY [facility] Last Admin: 03/29/17 08:05 Dose: 17 gm Warfarin Sodium (Coumadin Protocol) 0 MC NOTE [facility] Warfarin Sodium (Coumadin) 3 mg PO NOON [facility] Last Admin: 03/29/17 13:55 Dose: 3 mg Subjective: Patient seen and chart reviewed. Case discussed with treatment team. On interview, patient is pleasant and conversational though aphasic. She denies any pain or physical complaints, and reports feeling safe here. Patient denies any SI, HI or AVH. Patient denies any adverse side effects related to psychotropic medications. Nursing staff report patient was less anxious/paranoid last evening. She continues to be impulsive but is more redirectable. She has been adherent with medications. Patient slept well overnight. VSS. Patient is eating well. Psychotropic PRNs required since last seen: none. Start Time: 14:00 Stop Time: 14:20 Mental Status Exam Vitals: Last Vital Signs Temp 98.1 F 03/28/17 23:20 Pulse 88 03/29/17 08:05 Resp 16 03/28/17 23:20 BP 118/58 03/28/17 23:20 Pulse Ox 97 03/28/17 23:20 Height: 1.52 m Weight: 39.599 kg - Mental Status Exam Muscle Strength/Tone: Normal Dressing: Casual Grooming: Good Attitude: Cooperative Motor Activity: Normal (can be impulsive at times) Eye Contact: Fair Speech: Other Volume: Soft Rhythm: Appropriate Rhythm Orientation: Oriented to person Mood: Neutral (during interview, mood lability decreasing overall) Rate of Thoughts: Delayed Thought Organization: [place] Associations: Flight of Ideas, Illogical Abstract Reasoning: Poor abstract reasoning Thought Content: Paranoia (decreasing) Perception/Psychotic: Psychotic (denies AVH, paranoia improving) Language: Naming Impaired Fund of Knowledge: Poor fund of knowledge Memory: Poor-immediate, Poor-recent Suicidal Ideation: Denies Homicidal Ideation: Denies Insight: Poor Judgement: Poor Impulse Control: Poor (improved) - Laboratory Result Diagrams: 03/21/17 07:01 03/19/17 13:22 Laboratory Results - last 24 hr 03/29/17 07:00 INR 2.39 H Assessment and Plan (1) Major neurocognitive disorder Problem details: with behavioral disturbance. Alzheimer's versus Vascular Current visit: Yes Status: Acute Hospital Course Summary Disclaimer: The visit summary below is not to be considered part of the above Progress Note. Hospital Course: 03/19/17 16:13 IMPRESSION Neurocognitive disorder with behavioral changes Normocytic anemia Dementia Anxiety & Depression A-fib - on Coumadin HTN MVP OA Asthma GERD Slow transit constipation PLAN Agree with admission. Still need to check EKG, CT head. Routine labs are also pending. Check dig level and INR. Consult pharmacy for Coumadin management. VS stable though HR has been mildly elevated - hx of A-fib, may need to investigate options for rate control. Normocytic anemia - check B12 level. Cachetic - check prealbumin level. Provide safe, supportive environment. 03/21/17 21:30 Remains confused. Will get collateral from family and discuss med options 03/22/17 IMPRESSION Neurocognitive disorder with behavioral changes Normocytic anemia Mild PCM Dementia Anxiety & Depression A-fib - on Coumadin HTN MVP OA Asthma GERD Slow transit constipation PLAN Digoxin level was normal at 0.8 though give her age and low BMI this may be on the high end for her - digoxin frequency was therefore decreased to every-other- day. HR was >100 on admission but since then has been in the 80s-90s - BP has been acceptable; could consider increasing cardizem if rate increases with reduction of dig. INR 1.85 - pharmacy managing. Prealbumin low at 13.5 - start nutritional supplements. Vit B12 was low end of normal - start supplementation. 03/22/17 17:16 Remains paranoid at times. Will discuss with family use of low dose antipsychotic 03/23/17 Psych: Agree with above plan - have attempted to contact DPOA on multiple occasions to obtain informed consent 03/24/17 Psych: Continue with PRN antipsychotics until able to obtain consent from DPOA - reportedly responds well to Haldol. If not regularly available by phone, alternate DPOA would be beneficial for best care of patient. 03/25/17 HR still controlled since digoxin frequency was reduced to every-other day. INR therapeutic - pharmacy managing Coumadin dosing. Dr. Aceves's notes reviewed - seeking permission from DPOA to start an antipsychotic. 03/25/17: Will schedule Zyprexa 2.5mg PO at dinnertime. Monitor mood, behavior and response to treatment. 03/26/17 12:50 Remains agitated at times. increase Zyprexa to 5mg at dinner time 03/27/17 11:16 No behaviors today. Remains confused. Continue current care 03/28/17 Psych: Increase Zyprexa to 7.5mg PO at dinnertime as still has intermittent agitation requiring multiple PRNs in past 24 hours. PLAN-03/29/17: Overall, Winsome is doing well. She continues to have episodes of increased anxiety, especially at night with owners and continues to require occasional PRN medications. Continue psychiatric care per Dr. Aceves and team. Continue to provide safe and supportive environment. Zyprexa 7.5mg added at bedtime per Dr. Aceves in light of persistent agitation in evenings. Cardiac exam reveals persistent irregularly irregular rate and rhythm but rate remains controlled. Continue digoxin every other day and continue to monitor closely. Blood pressure remains stable and patient remains afebrile. INR subtheraputic at 2.37 with pharmacy to manage. Appreciate pharmacy's assistance. Will recheck CBC and BMP in AM in light of recent medication changes to monitor blood counts, electrolytes and renal function. 03/29/17 Psych: Increased Zyprexa just last night - continue to monitor response as it appears patient is responding well to this med and dose so far.
[2017-03-29] MEDS: OLANZapine 5 MG TABLET PO SCH (17:23)
[2017-03-29] MEDS: MEMANTINE 10 MG TABLET PO SCH (19:33)
[2017-03-29] MEDS: MIRTAZAPINE 30 MG TABLET PO SCH (19:33)
[2017-03-29] MEDS: HALOPERIDOL 0.5 MG TABLET PO PRN (21:15)
[2017-03-30] MEDS: MIRTAZAPINE 30 MG TABLET PO SCH ×2 (01:09→21:10)
[2017-03-30] MEDS: ClonazePAM 0.5 MG TABLET PO SCH ×3 (01:09→21:10)
[2017-03-30] MEDS: MEMANTINE 10 MG TABLET PO SCH ×2 (01:09→21:10)
[2017-03-30] MEDS: CYANOCOBALAMIN (B-12) 500mcg TABLET PO SCH (08:27)
[2017-03-30] MEDS: POLYETHYL GLYCOL 3350 17gm PACKET PO SCH (08:27)
[2017-03-30] MEDS: OMEPRAZOLE 20 MG CAPSULE PO SCH (08:27)
[2017-03-30] MEDS: WARFARIN 3 MG TABLET PO SCH (12:04)
[2017-03-30] MEDS: OLANZapine 5 MG TABLET PO SCH (17:14)
--- NOTE | 2017-03-30 19:29 | Neuropsych Progress Note ---
[facility] Subjective Date: 03/30/17 - Sujective/Severity of Illness Medications: Al Hydroxide/Mg Hydroxide (Maalox Plus) 30 ml PO Q6H PRN PRN Reason: Indigestion Last Admin: 03/28/17 10:24 Dose: 30 ml Clonazepam (Klonopin) 0.5 mg PO BID [facility] Last Admin: 03/30/17 08:27 Dose: 0.5 mg Cyanocobalamin (Vit. B-12) 500 mcg PO DAILY [facility] Last Admin: 03/30/17 08:27 Dose: 500 mcg Digoxin (Lanoxin) 125 mcg PO Q2D [facility] Last Admin: 03/29/17 08:05 Dose: 125 mcg Diltiazem HCl (Cardizem Cd) 120 mg PO DAILY [facility] Last Admin: 03/30/17 08:27 Dose: 120 mg Haloperidol (Haldol) 0.5 mg PO Q6H PRN PRN Reason: Extreme agitation Last Admin: 03/29/17 21:15 Dose: 0.5 mg Haloperidol Lactate (Haldol) 0.5 mg IM Q6H PRN PRN Reason: Extreme agitation Lorazepam (Ativan) 1 mg PO O PRN PRN Reason: Agitation Lorazepam (Ativan) 0.5 mg PO Q6H PRN PRN Reason: Extreme agitation Last Admin: 03/27/17 19:59 Dose: 0.5 mg Lorazepam (Ativan Inj) 0.5 mg IM Q6H PRN PRN Reason: Extreme agitation Memantine (Namenda) 10 mg PO HS [facility] Last Admin: 03/30/17 01:09 Dose: Not Given Mirtazapine (Remeron) 30 mg PO HS [facility] Last Admin: 03/30/17 01:09 Dose: Not Given Olanzapine (Zyprexa) 7.5 mg PO 18 [facility] Last Admin: 03/30/17 17:14 Dose: 7.5 mg Omeprazole (Prilosec) 20 mg PO ACB [facility] Last Admin: 03/30/17 08:27 Dose: 20 mg Polyethylene Glycol (Miralax) 17 gm PO DAILY [facility] Last Admin: 03/30/17 08:27 Dose: 17 gm Warfarin Sodium (Coumadin Protocol) 0 MC NOTE [facility] Warfarin Sodium (Coumadin) 3 mg PO NOON [facility] Last Admin: 03/30/17 12:04 Dose: 3 mg Subjective: Patient seen and chart reviewed. Case discussed with treatment team. On interview, patient is pleasant and conversational though aphasic. She denies any pain or physical complaints, and reports feeling safe here. Patient denies any SI, HI or AVH. Patient denies any adverse side effects related to psychotropic medications. Nursing staff report patient did have some anxiety and paranoia last evening. Overall, she continues to be impulsive but is more redirectable. She has been adherent with medications. Patient slept 8.5 hours overnight. VSS. Patient is eating well. Psychotropic PRNs required since last seen: Haldol 0.5mg PO x1 last evening for paranoia. Start Time: 14:40 Stop Time: 15:00 Mental Status Exam Vitals: Last Vital Signs Temp 97.8 F 03/30/17 15:37 Pulse 86 03/30/17 15:37 Resp 15 03/30/17 15:37 BP 115/50 03/30/17 15:37 Pulse Ox 97 03/30/17 15:37 Height: 1.52 m Weight: 39.599 kg - Mental Status Exam Muscle Strength/Tone: Normal Dressing: Casual Grooming: Good Attitude: Cooperative Motor Activity: Normal (can be impulsive at times) Eye Contact: Fair Speech: Other Volume: Soft Rhythm: Appropriate Rhythm Orientation: Oriented to person Mood: Neutral (during interview, mood lability decreasing overall) Rate of Thoughts: Delayed Thought Organization: [place] Associations: Flight of Ideas, Illogical Abstract Reasoning: Poor abstract reasoning Thought Content: Paranoia (decreasing) Perception/Psychotic: Psychotic (denies AVH, paranoia improving) Language: Naming Impaired Fund of Knowledge: Poor fund of knowledge Memory: Poor-immediate, Poor-recent Suicidal Ideation: Denies Homicidal Ideation: Denies Insight: Impaired Judgement: Impaired Impulse Control: Poor (improved) - Laboratory Result Diagrams: 03/30/17 07:12 03/30/17 07:11 Laboratory Results - last 24 hr 03/30/17 03/30/17 07:11 07:12 WBC 7.1 RBC 4.05 Hgb 12.4 Hct 37.9 MCV 93.6 MCH 30.6 MCHC 32.7 RDW Std Deviation 43.0 Plt Count 320 MPV 10.4 Immature Gran % (Auto) 0.3 Neut % (Auto) 46.5 Lymph % (Auto) 37.7 [place] % (Auto) 6.9 Eos % (Auto) 7.6 H Baso % (Auto) 1.0 Neut # (Auto) 3.3 Lymph # (Auto) 2.7 [place] # (Auto) 0.5 Eos # (Auto) 0.5 Baso # (Auto) 0.1 Abs Immat Gran (auto) 0.02 Turbidity < 20 Sodium 140 Potassium 4.7 Chloride 104 Carbon Dioxide 30 Anion Gap 6 BUN 13.0 Creatinine 0.6 L GFR Calculation 96 BUN/Creatinine Ratio 22 Glucose 89 Calculated Osmolality 268 Calcium 8.9 Icterus Index < 2 Specimen Hemolysis < 15 Assessment and Plan (1) Major neurocognitive disorder Problem details: with behavioral disturbance. Alzheimer's versus Vascular Current visit: Yes Status: Acute Hospital Course Summary Disclaimer: The visit summary below is not to be considered part of the above Progress Note. Hospital Course: 03/19/17 16:13 IMPRESSION Neurocognitive disorder with behavioral changes Normocytic anemia Dementia Anxiety & Depression A-fib - on Coumadin HTN MVP OA Asthma GERD Slow transit constipation PLAN Agree with admission. Still need to check EKG, CT head. Routine labs are also pending. Check dig level and INR. Consult pharmacy for Coumadin management. VS stable though HR has been mildly elevated - hx of A-fib, may need to investigate options for rate control. Normocytic anemia - check B12 level. Cachetic - check prealbumin level. Provide safe, supportive environment. 03/21/17 21:30 Remains confused. Will get collateral from family and discuss med options 03/22/17 IMPRESSION Neurocognitive disorder with behavioral changes Normocytic anemia Mild PCM Dementia Anxiety & Depression A-fib - on Coumadin HTN MVP OA Asthma GERD Slow transit constipation PLAN Digoxin level was normal at 0.8 though give her age and low BMI this may be on the high end for her - digoxin frequency was therefore decreased to every-other- day. HR was >100 on admission but since then has been in the 80s-90s - BP has been acceptable; could consider increasing cardizem if rate increases with reduction of dig. INR 1.85 - pharmacy managing. Prealbumin low at 13.5 - start nutritional supplements. Vit B12 was low end of normal - start supplementation. 03/22/17 17:16 Remains paranoid at times. Will discuss with family use of low dose antipsychotic 03/23/17 Psych: Agree with above plan - have attempted to contact DPOA on multiple occasions to obtain informed consent 03/24/17 Psych: Continue with PRN antipsychotics until able to obtain consent from DPOA - reportedly responds well to Haldol. If not regularly available by phone, alternate DPOA would be beneficial for best care of patient. 03/25/17 HR still controlled since digoxin frequency was reduced to every-other day. INR therapeutic - pharmacy managing Coumadin dosing. Dr. Aceves's notes reviewed - seeking permission from DPOA to start an antipsychotic. 03/25/17: Will schedule Zyprexa 2.5mg PO at dinnertime. Monitor mood, behavior and response to treatment. 03/26/17 12:50 Remains agitated at times. increase Zyprexa to 5mg at dinner time 03/27/17 11:16 No behaviors today. Remains confused. Continue current care 03/28/17 Psych: Increase Zyprexa to 7.5mg PO at dinnertime as still has intermittent agitation requiring multiple PRNs in past 24 hours. PLAN-03/29/17: Overall, Winsome is doing well. She continues to have episodes of increased anxiety, especially at night with sundowners and continues to require occasional PRN medications. Continue psychiatric care per Dr. Aceves and team. Continue to provide safe and supportive environment. Zyprexa 7.5mg added at bedtime per Dr. Aceves in light of persistent agitation in evenings. Cardiac exam reveals persistent irregularly irregular rate and rhythm but rate remains controlled. Continue digoxin every other day and continue to monitor closely. Blood pressure remains stable and patient remains afebrile. INR subtheraputic at 2.37 with pharmacy to manage. Appreciate pharmacy's assistance. Will recheck CBC and BMP in AM in light of recent medication changes to monitor blood counts, electrolytes and renal function. 03/29/17 Psych: Increased Zyprexa just last night - continue to monitor response as it appears patient is responding well to this med and dose so far. 03/30/17 Psych: Continue current care - will discuss means of addressing episodes of anxiety other ways as would like to limit further increase in Zyprexa if possible.
[2017-03-31] MEDS: HALOPERIDOL 1 MG/0.5 ML ORAL LIQUID PO PRN
[2017-03-31] MEDS: LORazepam INTENSOL 1mg/0.5ml ORAL LIQUID PO PRN
--- NOTE | 2017-03-31 10:32 | Pharmacy Consult ---
Pharmacy Consult-Warfarin - Laboratory Information 03/21/17 03/22/17 03/23/17 07:01 04:56 06:31 INR 1.85 H 1.85 H 1.97 H 03/24/17 03/25/17 03/26/17 06:45 05:11 08:25 INR 2.33 H 2.85 H 2.75 H 03/27/17 03/29/17 07:12 07:00 INR 2.74 H 2.39 H - Consult Information We scheduled INR to be drawn on Tuesday, Tuesday and Tuesday. Continue warfarin 3mg p.o. daily for now. Thanks
[2017-03-31] MEDS: CYANOCOBALAMIN (B-12) 500mcg TABLET PO SCH (11:08)
[2017-03-31] MEDS: OMEPRAZOLE 20 MG CAPSULE PO SCH (11:08)
[2017-03-31] MEDS: POLYETHYL GLYCOL 3350 17gm PACKET PO SCH (11:08)
[2017-03-31] MEDS: ClonazePAM 0.5 MG TABLET PO SCH ×2 (11:09→20:04)
[2017-03-31] MEDS: DIGOXIN 125 MCG TABLET PO SCH (11:09)
[2017-03-31] MEDS: WARFARIN 3 MG TABLET PO SCH (13:03)
[2017-03-31] MEDS: OLANZapine 5 MG TABLET PO SCH (17:20)
[2017-03-31] MEDS: MEMANTINE 10 MG TABLET PO SCH (20:04)
[2017-03-31] MEDS: MIRTAZAPINE 30 MG TABLET PO SCH (20:04)
[2017-03-31] MEDS: HALOPERIDOL 0.5 MG TABLET PO PRN (22:40)
--- NOTE | 2017-04-01 08:05 | Pharmacy Consult ---
Pharmacy Consult-Warfarin - Laboratory Information 03/21/17 03/22/17 03/23/17 07:01 04:56 06:31 INR 1.85 H 1.85 H 1.97 H 03/24/17 03/25/17 03/26/17 06:45 05:11 08:25 INR 2.33 H 2.85 H 2.75 H 03/27/17 03/29/17 04/01/17 07:12 07:00 06:40 INR 2.74 H 2.39 H 2.24 H - Consult Information INR 2.24 today. Patient currently on warfarin 3 mg po daily. INR within therapeutic range. Recheck INR on Tuesday. Thank you for the warfarin consult. Cris Knowles, RayneD
[2017-04-01] MEDS: POLYETHYL GLYCOL 3350 17gm PACKET PO SCH (09:21)
[2017-04-01] MEDS: CYANOCOBALAMIN (B-12) 500mcg TABLET PO SCH (09:21)
[2017-04-01] MEDS: OMEPRAZOLE 20 MG CAPSULE PO SCH (09:21)
[2017-04-01] MEDS: ClonazePAM 0.5 MG TABLET PO SCH ×2 (09:21→20:25)
[2017-04-01] MEDS: WARFARIN 3 MG TABLET PO SCH (12:15)
--- NOTE | 2017-04-01 16:19 | Progress Note ---
- Date 04/01/17 Subjective: Winsome is seen today in follow up for her neurocognitive disorder. She is seen while sitting in the recliner in the day room, watching TV. She denies any complaints or concerns including no chest pain, shortness of breath, abdominal pain, nausea, vomiting or dysuria. Nursing expressed concern about increased urinary frequency. UA was obtained and revealed 5-10 WBC with + nitrite and 4+ bacteria. No prior culture available. She remains afebrile. Due to her dementia, she is a poor historian and believed to be displaying new behaviors consistent with possible dysuria. Recent labs on 03/30 were unremarkable and INR remains slightly subtherapeutic at 2.24 with pharmacy to manage. Objective Vital signs: Temperature 96.5 F L 04/01/17 08:00 Pulse Rate 87 04/01/17 08:00 Respiratory Rate 16 04/01/17 08:00 Blood Pressure 139/67 04/01/17 08:00 Pulse Oximetry 98 04/01/17 08:00 Height/Weight/BMI: Height 5 ft Weight 87 lb 4.8 oz Body Mass Index 16.5 Comments: Sitting in recliner in no acute distress. - Constitutional Present: no acute distress, well nourished, well developed, cooperative - Routine HEENT Exam Head: Present: normocephalic, atraumatic Eye: Present: PERRL. Absent: conjunctival icterus ENT: Present: mucous membranes moist - Routine Respiratory Exam Present: CTA bilaterally. Absent: stridor, wheezes, crackles - Routine Cardiovascular Exam Present: irregularly irregular - Routine Abdominal Exam Present: soft, normoactive bowel sounds, non distended, non tender - Routine Extremities Exam Present: no edema, full ROM, pulses intact Comments: ambulates easily following exam. - Routine Back/Spine/Pelvis Exam Back/Spine: Present: full ROM - Routine Musculoskeletal Exam Musculoskeletal: Present: normal gait, moving extremities well - Routine Skin Exam Present: intact, dry, warm. Absent: jaundice Comments: afebrile - Routine Neurological Exam Present: alert, moving all extremities, normal speech. Absent: facial asymmetry - Routine Lymphatic Exam Lymphatic: Absent: lymphedema - Routine Psychiatric Exam Present: cooperative Results - Labs CBC & Chem 7: 03/30/17 07:12 03/30/17 07:11 Microbiology Results: Microbiology 04/01/17 13:10 Urine, Voided (Cc/notcc) Urine Culture - Preliminary Culture Initiated - Results Pending Assessment and Plan (1) Neurocognitive disorder Current visit: Yes Status: Acute Assessment and Plan: Plan - 04/01/17: Overall, Winsome is doing well. Continue psychiatric care per Dr. Aceves and team. Continue to provide safe and supportive environment. Nursing expressed concern about possible UTI given change in behaviors including urinary frequency. UA was obtained and revealed 5-10 WBC with 4+ bacteria and positive nitrite. Culture pending. Keflex 500mg QID initiated x 7 days and will be adjusted pending sensitivities results if warranted. Continue to monitor closely for fever, vomiting, change or worsening. Currently afebrile. Vital signs remain stable. Will recheck CBC and BMP on 04/04 to monitor blood counts, electrolytes and renal function. Resuscitation Status: Full Code - Time spent with patient Time with patient PN: 25 minutes Hospital Course Summary Disclaimer: The visit summary below is not to be considered part of the above Progress Note. Hospital Course: 03/19/17 16:13 IMPRESSION Neurocognitive disorder with behavioral changes Normocytic anemia Dementia Anxiety & Depression A-fib - on Coumadin HTN MVP OA Asthma GERD Slow transit constipation PLAN Agree with admission. Still need to check EKG, CT head. Routine labs are also pending. Check dig level and INR. Consult pharmacy for Coumadin management. VS stable though HR has been mildly elevated - hx of A-fib, may need to investigate options for rate control. Normocytic anemia - check B12 level. Cachetic - check prealbumin level. Provide safe, supportive environment. 03/21/17 21:30 Remains confused. Will get collateral from family and discuss med options 03/22/17 IMPRESSION Neurocognitive disorder with behavioral changes Normocytic anemia Mild PCM Dementia Anxiety & Depression A-fib - on Coumadin HTN MVP OA Asthma GERD Slow transit constipation PLAN Digoxin level was normal at 0.8 though give her age and low BMI this may be on the high end for her - digoxin frequency was therefore decreased to every-other- day. HR was >100 on admission but since then has been in the 80s-90s - BP has been acceptable; could consider increasing cardizem if rate increases with reduction of dig. INR 1.85 - pharmacy managing. Prealbumin low at 13.5 - start nutritional supplements. Vit B12 was low end of normal - start supplementation. 03/22/17 17:16 Remains paranoid at times. Will discuss with family use of low dose antipsychotic 03/23/17 Psych: Agree with above plan - have attempted to contact DPOA on multiple occasions to obtain informed consent 03/24/17 Psych: Continue with PRN antipsychotics until able to obtain consent from DPOA - reportedly responds well to Haldol. If not regularly available by phone, alternate DPOA would be beneficial for best care of patient. 03/25/17 HR still controlled since digoxin frequency was reduced to every-other day. INR therapeutic - pharmacy managing Coumadin dosing. Dr. Aceves's notes reviewed - seeking permission from DPOA to start an antipsychotic. 03/25/17: Will schedule Zyprexa 2.5mg PO at dinnertime. Monitor mood, behavior and response to treatment. 03/26/17 12:50 Remains agitated at times. increase Zyprexa to 5mg at dinner time 03/27/17 11:16 No behaviors today. Remains confused. Continue current care 03/28/17 Psych: Increase Zyprexa to 7.5mg PO at dinnertime as still has intermittent agitation requiring multiple PRNs in past 24 hours. PLAN-03/29/17: Overall, Winsome is doing well. She continues to have episodes of increased anxiety, especially at night with own and continues to require occasional PRN medications. Continue psychiatric care per Dr. Aceves and team. Continue to provide safe and supportive environment. Zyprexa 7.5mg added at bedtime per Dr. Aceves in light of persistent agitation in evenings. Cardiac exam reveals persistent irregularly irregular rate and rhythm but rate remains controlled. Continue digoxin every other day and continue to monitor closely. Blood pressure remains stable and patient remains afebrile. INR subtheraputic at 2.37 with pharmacy to manage. Appreciate pharmacy's assistance. Will recheck CBC and BMP in AM in light of recent medication changes to monitor blood counts, electrolytes and renal function. 03/29/17 Psych: Increased Zyprexa just last night - continue to monitor response as it appears patient is responding well to this med and dose so far. 03/30/17 Psych: Continue current care - will discuss means of addressing episodes of anxiety other ways as would like to limit further increase in Zyprexa if possible. Plan - 04/01/17: Overall, Winsome is doing well. Continue psychiatric care per Dr. Aceves and team. Continue to provide safe and supportive environment. Nursing expressed concern about possible UTI given change in behaviors including urinary frequency. UA was obtained and revealed 5-10 WBC with 4+ bacteria and positive nitrite. Culture pending. Keflex 500mg QID initiated x 7 days and will be adjusted pending sensitivities results if warranted. Continue to monitor closely for fever, vomiting, change or worsening. Currently afebrile. Vital signs remain stable. Will recheck CBC and BMP on 04/04 to monitor blood counts, electrolytes and renal function.
[2017-04-01] MEDS: OLANZapine 5 MG TABLET PO SCH (17:13)
--- NOTE | 2017-04-01 17:58 | Neuropsych Progress Note ---
[facility] Subjective Date: 04/01/17 - Sujective/Severity of Illness Medications: Al Hydroxide/Mg Hydroxide (Maalox Plus) 30 ml PO Q6H PRN PRN Reason: Indigestion Last Admin: 03/28/17 10:24 Dose: 30 ml Cephalexin HCl (Keflex) 500 mg PO Q6HR [facility] Stop: 04/08/17 23:59 Last Admin: 04/01/17 17:13 Dose: 500 mg Clonazepam (Klonopin) 0.5 mg PO BID [facility] Last Admin: 04/01/17 09:21 Dose: 0.5 mg Cyanocobalamin (Vit. B-12) 500 mcg PO DAILY [facility] Last Admin: 04/01/17 09:21 Dose: 500 mcg Digoxin (Lanoxin) 125 mcg PO Q2D [facility] Last Admin: 03/31/17 11:09 Dose: 125 mcg Diltiazem HCl (Cardizem Cd) 120 mg PO DAILY [facility] Last Admin: 04/01/17 09:21 Dose: 120 mg Haloperidol (Haldol) 0.5 mg PO Q6H PRN PRN Reason: Extreme agitation Last Admin: 03/31/17 22:40 Dose: 0.5 mg Haloperidol Decanoate (Haldol Liquid) 0.5 mg PO Q6H PRN Last Admin: 03/31/17 00:00 Dose: 0.5 mg Haloperidol Lactate (Haldol) 0.5 mg IM Q6H PRN PRN Reason: Extreme agitation Lorazepam (Ativan Intensol) 0.5 mg PO Q6HR PRN Last Admin: 03/31/17 00:00 Dose: 0.5 mg Lorazepam (Ativan) 1 mg PO O PRN PRN Reason: Agitation Lorazepam (Ativan) 0.5 mg PO Q6H PRN PRN Reason: Extreme agitation Last Admin: 03/27/17 19:59 Dose: 0.5 mg Lorazepam (Ativan Inj) 0.5 mg IM Q6H PRN PRN Reason: Extreme agitation Memantine (Namenda) 10 mg PO HS [facility] Last Admin: 03/31/17 20:04 Dose: 10 mg Mirtazapine (Remeron) 30 mg PO HS [facility] Last Admin: 03/31/17 20:04 Dose: 30 mg Olanzapine (Zyprexa) 7.5 mg PO 18 [facility] Last Admin: 04/01/17 17:13 Dose: 7.5 mg Omeprazole (Prilosec) 20 mg PO ACB [facility] Last Admin: 04/01/17 09:21 Dose: 20 mg Polyethylene Glycol (Miralax) 17 gm PO DAILY [facility] Last Admin: 04/01/17 09:21 Dose: 17 gm Warfarin Sodium (Coumadin Protocol) 0 [facility] NOTE [facility]AD Warfarin Sodium (Coumadin) 3 mg PO NOON [facility] Last Admin: 04/01/17 12:15 Dose: 3 mg Subjective: Patient seen and chart reviewed. Case discussed with treatment team. Patient is sleeping soundly during AM rounds but has had more agitation/anxiety and confusion per staff. She had previously been doing better after starting Zyprexa. She has been adherent with medications. Patient slept well overnight. VSS. Patient is eating well. Will check UA today to assess whether UTI may be cause of increased confusion. Start Time: 08:40 Stop Time: 09:00 Mental Status Exam Vitals: Last Vital Signs Temp 98.3 F 04/01/17 16:00 Pulse 98 04/01/17 16:00 Resp 16 04/01/17 16:00 BP 113/52 04/01/17 16:00 Pulse Ox 98 04/01/17 16:00 Height: 1.52 m Weight: 39.599 kg - Mental Status Exam Muscle Strength/Tone: Normal, Other Dressing: Casual Grooming: Good Attitude: Other (Did not assess as patient was sleeping) Motor Activity: Other (Did not assess as patient was sleeping) Eye Contact: Fair Speech: Other Volume: Soft Rhythm: Appropriate Rhythm Orientation: Oriented to person Mood: Other (Did not assess as patient was sleeping) Rate of Thoughts: Delayed Thought Organization: [place], Confused Associations: Flight of Ideas, Illogical Abstract Reasoning: Poor abstract reasoning Thought Content: Other (Did not assess as patient was sleeping) Perception/Psychotic: Other (Did not assess as patient was sleeping) Language: Naming Impaired Fund of Knowledge: Poor fund of knowledge Memory: Poor-immediate, Poor-recent Suicidal Ideation: Denies Homicidal Ideation: Denies Insight: Impaired Judgement: Impaired Impulse Control: Poor (improved) - Laboratory Result Diagrams: 03/30/17 07:12 03/30/17 07:11 Laboratory Results - last 24 hr 04/01/17 04/01/17 06:40 13:10 INR 2.24 H Ur Collection Type Urine, clean catch Urine Color Yellow Urine Clarity Sl cloudy Urine pH 6.5 Ur Specific [place] 1.015 Urine Protein Negative Urine Glucose (UA) Negative Urine Ketones Negative Urine Occult Blood Trace-intact Urine Nitrate Positive A Urine Bilirubin Negative Urine Urobilinogen 0.2 Ur Leukocyte Esterase 1+ A Urine RBC 1-3 Urine WBC 5-10 H Urine Bacteria 4+ H Ur Culture Indicated? Cult reflexed &setup Assessment and Plan (1) Major neurocognitive disorder Problem details: with behavioral disturbance. Alzheimer's versus Vascular Current visit: Yes Status: Acute Hospital Course Summary Disclaimer: The visit summary below is not to be considered part of the above Progress Note. Hospital Course: 03/19/17 16:13 IMPRESSION Neurocognitive disorder with behavioral changes Normocytic anemia Dementia Anxiety & Depression A-fib - on Coumadin HTN MVP OA Asthma GERD Slow transit constipation PLAN Agree with admission. Still need to check EKG, CT head. Routine labs are also pending. Check dig level and INR. Consult pharmacy for Coumadin management. VS stable though HR has been mildly elevated - hx of A-fib, may need to investigate options for rate control. Normocytic anemia - check B12 level. Cachetic - check prealbumin level. Provide safe, supportive environment. 03/21/17 21:30 Remains confused. Will get collateral from family and discuss med options 03/22/17 IMPRESSION Neurocognitive disorder with behavioral changes Normocytic anemia Mild PCM Dementia Anxiety & Depression A-fib - on Coumadin HTN MVP OA Asthma GERD Slow transit constipation PLAN Digoxin level was normal at 0.8 though give her age and low BMI this may be on the high end for her - digoxin frequency was therefore decreased to every-other- day. HR was >100 on admission but since then has been in the 80s-90s - BP has been acceptable; could consider increasing cardizem if rate increases with reduction of dig. INR 1.85 - pharmacy managing. Prealbumin low at 13.5 - start nutritional supplements. Vit B12 was low end of normal - start supplementation. 03/22/17 17:16 Remains paranoid at times. Will discuss with family use of low dose antipsychotic 03/23/17 Psych: Agree with above plan - have attempted to contact DPOA on multiple occasions to obtain informed consent 03/24/17 Psych: Continue with PRN antipsychotics until able to obtain consent from DPOA - reportedly responds well to Haldol. If not regularly available by phone, alternate DPOA would be beneficial for best care of patient. 03/25/17 HR still controlled since digoxin frequency was reduced to every-other day. INR therapeutic - pharmacy managing Coumadin dosing. Dr. Aceves's notes reviewed - seeking permission from DPOA to start an antipsychotic. 03/25/17: Will schedule Zyprexa 2.5mg PO at dinnertime. Monitor mood, behavior and response to treatment. 03/26/17 12:50 Remains agitated at times. increase Zyprexa to 5mg at dinner time 03/27/17 11:16 No behaviors today. Remains confused. Continue current care 03/28/17 Psych: Increase Zyprexa to 7.5mg PO at dinnertime as still has intermittent agitation requiring multiple PRNs in past 24 hours. PLAN-03/29/17: Overall, Winsome is doing well. She continues to have episodes of increased anxiety, especially at night with owners and continues to require occasional PRN medications. Continue psychiatric care per Dr. Aceves and team. Continue to provide safe and supportive environment. Zyprexa 7.5mg added at bedtime per Dr. Aceves in light of persistent agitation in evenings. Cardiac exam reveals persistent irregularly irregular rate and rhythm but rate remains controlled. Continue digoxin every other day and continue to monitor closely. Blood pressure remains stable and patient remains afebrile. INR subtheraputic at 2.37 with pharmacy to manage. Appreciate pharmacy's assistance. Will recheck CBC and BMP in AM in light of recent medication changes to monitor blood counts, electrolytes and renal function. 03/29/17 Psych: Increased Zyprexa just last night - continue to monitor response as it appears patient is responding well to this med and dose so far. 03/30/17 Psych: Continue current care - will discuss means of addressing episodes of anxiety other ways as would like to limit further increase in Zyprexa if possible. Plan - 04/01/17: Overall, Winsome is doing well. Continue psychiatric care per Dr. Aceves and team. Continue to provide safe and supportive environment. Nursing expressed concern about possible UTI given change in behaviors including urinary frequency. UA was obtained and revealed 5-10 WBC with 4+ bacteria and positive nitrite. Culture pending. Keflex 500mg QID initiated x 7 days and will be adjusted pending sensitivities results if warranted. Continue to monitor closely for fever, vomiting, change or worsening. Currently afebrile. Vital signs remain stable. Will recheck CBC and BMP on 04/04 to monitor blood counts, electrolytes and renal function. 04/01/17 Psych: Continue current care - UA ordered and resulted as above, being treated by hospitalist. Continue current psych meds in interim and predict agitation, confusion will again decrease as UTI is treated.
[2017-04-01] MEDS: MIRTAZAPINE 30 MG TABLET PO SCH (20:25)
[2017-04-01] MEDS: MEMANTINE 10 MG TABLET PO SCH (20:25)
[2017-04-01] MEDS: HALOPERIDOL 0.5 MG TABLET PO PRN (22:10)
[2017-04-02] MEDS: MAG-AL + SIM ORAL LIQUID 30ml PO PRN ×2 (02:14→11:48)
[2017-04-02] MEDS: CYANOCOBALAMIN (B-12) 500mcg TABLET PO SCH (11:44)
[2017-04-02] MEDS: ClonazePAM 0.5 MG TABLET PO SCH ×2 (11:44→20:15)
[2017-04-02] MEDS: DIGOXIN 125 MCG TABLET PO SCH (11:44)
[2017-04-02] MEDS: OMEPRAZOLE 20 MG CAPSULE PO SCH (11:47)
[2017-04-02] MEDS: POLYETHYL GLYCOL 3350 17gm PACKET PO SCH (11:47)
[2017-04-02] MEDS: WARFARIN 3 MG TABLET PO SCH (12:04)
[2017-04-02] MEDS: LORazepam 0.5 MG TABLET PO PRN (13:09)
[2017-04-02] MEDS ORDERED: BISACODYL 10 MG SUPPOSITORY RECTALLY PRN (14:30)
--- NOTE | 2017-04-02 14:30 | Neuropsych Progress Note ---
[facility] Subjective Date: 04/02/17 - Sujective/Severity of Illness Medications: Al Hydroxide/Mg Hydroxide (Maalox Plus) 30 ml PO Q6H PRN PRN Reason: Indigestion Last Admin: 04/02/17 11:48 Dose: 30 ml Cephalexin HCl (Keflex) 500 mg PO Q6HR [facility] Stop: 04/08/17 23:59 Last Admin: 04/02/17 11:44 Dose: 500 mg Clonazepam (Klonopin) 0.5 mg PO BID [facility] Last Admin: 04/02/17 11:44 Dose: 0.5 mg Cyanocobalamin (Vit. B-12) 500 mcg PO DAILY [facility] Last Admin: 04/02/17 11:44 Dose: 500 mcg Digoxin (Lanoxin) 125 mcg PO Q2D [facility] Last Admin: 04/02/17 11:44 Dose: 125 mcg Diltiazem HCl (Cardizem Cd) 120 mg PO DAILY [facility] Last Admin: 04/02/17 11:47 Dose: 120 mg Haloperidol (Haldol) 0.5 mg PO Q6H PRN PRN Reason: Extreme agitation Last Admin: 04/01/17 22:10 Dose: 0.5 mg Haloperidol Decanoate (Haldol Liquid) 0.5 mg PO Q6H PRN Last Admin: 03/31/17 00:00 Dose: 0.5 mg Haloperidol Lactate (Haldol) 0.5 mg IM Q6H PRN PRN Reason: Extreme agitation Hyoscyamine (Levsin) 0.125 mg SL Q6HR PRN PRN Reason: Gastrointestinal upset Lorazepam (Ativan Intensol) 0.5 mg PO Q6HR PRN Last Admin: 03/31/17 00:00 Dose: 0.5 mg Lorazepam (Ativan) 1 mg PO O PRN PRN Reason: Agitation Lorazepam (Ativan) 0.5 mg PO Q6H PRN PRN Reason: Extreme agitation Last Admin: 04/02/17 13:09 Dose: 0.5 mg Lorazepam (Ativan Inj) 0.5 mg IM Q6H PRN PRN Reason: Extreme agitation Memantine (Namenda) 10 mg PO HS [facility] Last Admin: 04/01/17 20:25 Dose: 10 mg Mirtazapine (Remeron) 30 mg PO [facility] Last Admin: 04/01/17 20:25 Dose: 30 mg Olanzapine (Zyprexa) 7.5 mg PO 18 [facility] Last Admin: 04/01/17 17:13 Dose: 7.5 mg Omeprazole (Prilosec) 20 mg PO ACB [facility] Last Admin: 04/02/17 11:47 Dose: 20 mg Polyethylene Glycol (Miralax) 17 gm PO DAILY [facility] Last Admin: 04/02/17 11:47 Dose: 17 gm Warfarin Sodium (Coumadin Protocol) 0 MC NOTE [facility] Warfarin Sodium (Coumadin) 3 mg PO NOON [facility] Last Admin: 04/02/17 12:04 Dose: 3 mg Subjective: Pt seen and chart examined. Nursing reprots pt can be restless at times and appetite has decreased. On face to face the pt is pleasant. She reports having some nausea which she states makes it difficult to eat. She appears anxious. She denies feeling depressed and denies paranoia at this time. Tolerating meds Start Time: 11:30 Stop Time: 11:45 Mental Status Exam Vitals: Last Vital Signs Temp 96.8 F 04/02/17 08:00 Pulse 84 04/02/17 11:44 Resp 20 04/02/17 08:00 BP 138/62 04/02/17 08:00 Pulse Ox 98 04/02/17 08:00 Height: 1.52 m Weight: 39.599 kg - Mental Status Exam Muscle Strength/Tone: Normal, Other Dressing: Casual Grooming: Good Attitude: Other (Did not assess as patient was sleeping) Motor Activity: Other (Did not assess as patient was sleeping) Eye Contact: Fair Speech: Other Volume: Soft Rhythm: Appropriate Rhythm Orientation: Oriented to person Mood: Other (Did not assess as patient was sleeping) Rate of Thoughts: Delayed Thought Organization: [place], Confused Associations: Flight of Ideas, Illogical Abstract Reasoning: Poor abstract reasoning Thought Content: Other (Did not assess as patient was sleeping) Perception/Psychotic: Other (Did not assess as patient was sleeping) Language: Naming Impaired Fund of Knowledge: Poor fund of knowledge Memory: Poor-immediate, Poor-recent Suicidal Ideation: Denies Homicidal Ideation: Denies Insight: Impaired Judgement: Impaired Impulse Control: Poor (improved) - Laboratory Result Diagrams: 03/30/17 07:12 03/30/17 07:11 Assessment and Plan (1) Major neurocognitive disorder Problem details: with behavioral disturbance. Alzheimer's versus Vascular Current visit: Yes Status: Acute Hospital Course Summary Disclaimer: The visit summary below is not to be considered part of the above Progress Note. Hospital Course: 03/19/17 16:13 IMPRESSION Neurocognitive disorder with behavioral changes Normocytic anemia Dementia Anxiety & Depression A-fib - on Coumadin HTN MVP OA Asthma GERD Slow transit constipation PLAN Agree with admission. Still need to check EKG, CT head. Routine labs are also pending. Check dig level and INR. Consult pharmacy for Coumadin management. VS stable though HR has been mildly elevated - hx of A-fib, may need to investigate options for rate control. Normocytic anemia - check B12 level. Cachetic - check prealbumin level. Provide safe, supportive environment. 03/21/17 21:30 Remains confused. Will get collateral from family and discuss med options 03/22/17 IMPRESSION Neurocognitive disorder with behavioral changes Normocytic anemia Mild PCM Dementia Anxiety & Depression A-fib - on Coumadin HTN MVP OA Asthma GERD Slow transit constipation PLAN Digoxin level was normal at 0.8 though give her age and low BMI this may be on the high end for her - digoxin frequency was therefore decreased to every-other- day. HR was >100 on admission but since then has been in the 80s-90s - BP has been acceptable; could consider increasing cardizem if rate increases with reduction of dig. INR 1.85 - pharmacy managing. Prealbumin low at 13.5 - start nutritional supplements. Vit B12 was low end of normal - start supplementation. 03/22/17 17:16 Remains paranoid at times. Will discuss with family use of low dose antipsychotic 03/23/17 Psych: Agree with above plan - have attempted to contact DPOA on multiple occasions to obtain informed consent 03/24/17 Psych: Continue with PRN antipsychotics until able to obtain consent from DPOA - reportedly responds well to Haldol. If not regularly available by phone, alternate DPOA would be beneficial for best care of patient. 03/25/17 HR still controlled since digoxin frequency was reduced to every-other day. INR therapeutic - pharmacy managing Coumadin dosing. Dr. Aceves's notes reviewed - seeking permission from DPOA to start an antipsychotic. 03/25/17: Will schedule Zyprexa 2.5mg PO at dinnertime. Monitor mood, behavior and response to treatment. 03/26/17 12:50 Remains agitated at times. increase Zyprexa to 5mg at dinner time 03/27/17 11:16 No behaviors today. Remains confused. Continue current care 03/28/17 Psych: Increase Zyprexa to 7.5mg PO at dinnertime as still has intermittent agitation requiring multiple PRNs in past 24 hours. PLAN-03/29/17: Overall, Winsome is doing well. She continues to have episodes of increased anxiety, especially at night with sundowners and continues to require occasional PRN medications. Continue psychiatric care per Dr. Aceves and team. Continue to provide safe and supportive environment. Zyprexa 7.5mg added at bedtime per Dr. Aceves in light of persistent agitation in evenings. Cardiac exam reveals persistent irregularly irregular rate and rhythm but rate remains controlled. Continue digoxin every other day and continue to monitor closely. Blood pressure remains stable and patient remains afebrile. INR subtheraputic at 2.37 with pharmacy to manage. Appreciate pharmacy's assistance. Will recheck CBC and BMP in AM in light of recent medication changes to monitor blood counts, electrolytes and renal function. 03/29/17 Psych: Increased Zyprexa just last night - continue to monitor response as it appears patient is responding well to this med and dose so far. 03/30/17 Psych: Continue current care - will discuss means of addressing episodes of anxiety other ways as would like to limit further increase in Zyprexa if possible. Plan - 04/01/17: Overall, Winsome is doing well. Continue psychiatric care per Dr. Aceves and team. Continue to provide safe and supportive environment. Nursing expressed concern about possible UTI given change in behaviors including urinary frequency. UA was obtained and revealed 5-10 WBC with 4+ bacteria and positive nitrite. Culture pending. Keflex 500mg QID initiated x 7 days and will be adjusted pending sensitivities results if warranted. Continue to monitor closely for fever, vomiting, change or worsening. Currently afebrile. Vital signs remain stable. Will recheck CBC and BMP on 04/04 to monitor blood counts, electrolytes and renal function. 04/01/17 Psych: Continue current care - UA ordered and resulted as above, being treated by hospitalist. Continue current psych meds in interim and predict agitation, confusion will again decrease as UTI is treated. 04/02/17 14:29 Some agitation at times. Continue current care
[2017-04-02] MEDS: Bisacodyl EC TAB 5 MG TABLET PO PRN (14:35)
[2017-04-02] MEDS: HALOPERIDOL 0.5 MG TABLET PO PRN (15:39)
[2017-04-02] MEDS: OLANZapine 5 MG TABLET PO SCH (17:03)
[2017-04-02] MEDS: MIRTAZAPINE 30 MG TABLET PO SCH (20:13)
[2017-04-02] MEDS: MEMANTINE 10 MG TABLET PO SCH (20:13)
[2017-04-03] MEDS: OMEPRAZOLE 20 MG CAPSULE PO SCH (08:33)
[2017-04-03] MEDS: ClonazePAM 0.5 MG TABLET PO SCH ×2 (08:33→20:10)
[2017-04-03] MEDS: CYANOCOBALAMIN (B-12) 500mcg TABLET PO SCH (08:33)
[2017-04-03] MEDS: POLYETHYL GLYCOL 3350 17gm PACKET PO SCH (08:34)
--- NOTE | 2017-04-03 11:14 | Neuropsych Progress Note ---
[facility] Subjective Date: 04/03/17 - Sujective/Severity of Illness Medications: Al Hydroxide/Mg Hydroxide (Maalox Plus) 30 ml PO Q6H PRN PRN Reason: Indigestion Last Admin: 04/02/17 11:48 Dose: 30 ml Bisacodyl (Dulcolax) 10 mg RECTALLY DAILY PRN PRN Reason: Constipation Bisacodyl (Dulcolax) 10 mg PO DAILY PRN PRN Reason: Constipation Last Admin: 04/02/17 14:35 Dose: 10 mg Cephalexin HCl (Keflex) 500 mg PO Q6HR [facility] Stop: 04/08/17 23:59 Last Admin: 04/03/17 08:33 Dose: 500 mg Clonazepam (Klonopin) 0.5 mg PO BID [facility] Last Admin: 04/03/17 08:33 Dose: 0.5 mg Cyanocobalamin (Vit. B-12) 500 mcg PO DAILY [facility] Last Admin: 04/03/17 08:33 Dose: 500 mcg Digoxin (Lanoxin) 125 mcg PO Q2D [facility] Last Admin: 04/02/17 11:44 Dose: 125 mcg Diltiazem HCl (Cardizem Cd) 120 mg PO DAILY [facility] Last Admin: 04/03/17 08:33 Dose: 120 mg Haloperidol (Haldol) 0.5 mg PO Q6H PRN PRN Reason: Extreme agitation Last Admin: 04/02/17 15:39 Dose: 0.5 mg Haloperidol Decanoate (Haldol Liquid) 0.5 mg PO Q6H PRN Last Admin: 03/31/17 00:00 Dose: 0.5 mg Haloperidol Lactate (Haldol) 0.5 mg IM Q6H PRN PRN Reason: Extreme agitation Hyoscyamine (Levsin) 0.125 mg SL Q6HR PRN PRN Reason: Gastrointestinal upset Lorazepam (Ativan Intensol) 0.5 mg PO Q6HR PRN Last Admin: 03/31/17 00:00 Dose: 0.5 mg Lorazepam (Ativan) 1 mg PO O PRN PRN Reason: Agitation Lorazepam (Ativan) 0.5 mg PO Q6H PRN PRN Reason: Extreme agitation Last Admin: 04/02/17 13:09 Dose: 0.5 mg Lorazepam (Ativan Inj) 0.5 mg IM Q6H PRN PRN Reason: Extreme agitation Memantine (Namenda) 10 mg PO HS [facility] Last Admin: 04/02/17 20:13 Dose: 10 mg Mirtazapine (Remeron) 30 mg PO HS [facility] Last Admin: 04/02/17 20:13 Dose: 30 mg Olanzapine (Zyprexa) 7.5 mg PO 18 [facility] Last Admin: 04/02/17 17:03 Dose: 7.5 mg Omeprazole (Prilosec) 20 mg PO ACB [facility] Last Admin: 04/03/17 08:33 Dose: 20 mg Polyethylene Glycol (Miralax) 17 gm PO DAILY [facility] Last Admin: 04/03/17 08:34 Dose: 17 gm Warfarin Sodium (Coumadin Protocol) 0 MC NOTE [facility] Warfarin Sodium (Coumadin) 3 mg PO NOON [facility] Last Admin: 04/02/17 12:04 Dose: 3 mg Subjective: Pt seen and chart examined. Nursing reports pt was restless and agitated last evening and received Ativan at 1310 and Haldol at 1540 which was helpful. Pt slept well. On face to face the pt is sleepy. She is pleasant but confused. Only oriented to self. Reports some urinary frequency. No paranoia noted. Tolerating meds Start Time: 11:30 Stop Time: 11:45 Mental Status Exam Vitals: Last Vital Signs Temp 97 F 04/03/17 08:00 Pulse 82 04/03/17 08:00 Resp 22 04/03/17 08:00 BP 114/53 04/03/17 08:00 Pulse Ox 98 04/03/17 08:00 Height: 1.52 m Weight: 39.599 kg - Mental Status Exam Muscle Strength/Tone: Normal, Other Dressing: Casual Grooming: Good Attitude: Other (Did not assess as patient was sleeping) Motor Activity: Other (Did not assess as patient was sleeping) Eye Contact: Fair Speech: Other Volume: Soft Rhythm: Appropriate Rhythm Orientation: Oriented to person Mood: Other (Did not assess as patient was sleeping) Rate of Thoughts: Delayed Thought Organization: [place], Confused Associations: Flight of Ideas, Illogical Abstract Reasoning: Poor abstract reasoning Thought Content: Other (Did not assess as patient was sleeping) Perception/Psychotic: Other (Did not assess as patient was sleeping) Language: Naming Impaired Fund of Knowledge: Poor fund of knowledge Memory: Poor-immediate, Poor-recent Suicidal Ideation: Denies Homicidal Ideation: Denies Insight: Impaired Judgement: Impaired Impulse Control: Poor (improved) - Laboratory Result Diagrams: 03/30/17 07:12 03/30/17 07:11 Assessment and Plan (1) Major neurocognitive disorder Problem details: with behavioral disturbance. Alzheimer's versus Vascular Current visit: Yes Status: Acute Hospital Course Summary Disclaimer: The visit summary below is not to be considered part of the above Progress Note. Hospital Course: 03/19/17 16:13 IMPRESSION Neurocognitive disorder with behavioral changes Normocytic anemia Dementia Anxiety & Depression A-fib - on Coumadin HTN MVP OA Asthma GERD Slow transit constipation PLAN Agree with admission. Still need to check EKG, CT head. Routine labs are also pending. Check dig level and INR. Consult pharmacy for Coumadin management. VS stable though HR has been mildly elevated - hx of A-fib, may need to investigate options for rate control. Normocytic anemia - check B12 level. Cachetic - check prealbumin level. Provide safe, supportive environment. 03/21/17 21:30 Remains confused. Will get collateral from family and discuss med options 03/22/17 IMPRESSION Neurocognitive disorder with behavioral changes Normocytic anemia Mild PCM Dementia Anxiety & Depression A-fib - on Coumadin HTN MVP OA Asthma GERD Slow transit constipation PLAN Digoxin level was normal at 0.8 though give her age and low BMI this may be on the high end for her - digoxin frequency was therefore decreased to every-other- day. HR was >100 on admission but since then has been in the 80s-90s - BP has been acceptable; could consider increasing cardizem if rate increases with reduction of dig. INR 1.85 - pharmacy managing. Prealbumin low at 13.5 - start nutritional supplements. Vit B12 was low end of normal - start supplementation. 03/22/17 17:16 Remains paranoid at times. Will discuss with family use of low dose antipsychotic 03/23/17 Psych: Agree with above plan - have attempted to contact DPOA on multiple occasions to obtain informed consent 03/24/17 Psych: Continue with PRN antipsychotics until able to obtain consent from DPOA - reportedly responds well to Haldol. If not regularly available by phone, alternate DPOA would be beneficial for best care of patient. 03/25/17 HR still controlled since digoxin frequency was reduced to every-other day. INR therapeutic - pharmacy managing Coumadin dosing. Dr. Aceves's notes reviewed - seeking permission from [facility] to start an antipsychotic. 03/25/17: Will schedule Zyprexa 2.5mg PO at dinnertime. Monitor mood, behavior and response to treatment. 03/26/17 12:50 Remains agitated at times. increase Zyprexa to 5mg at dinner time 03/27/17 11:16 No behaviors today. Remains confused. Continue current care 03/28/17 Psych: Increase Zyprexa to 7.5mg PO at dinnertime as still has intermittent agitation requiring multiple PRNs in past 24 hours. PLAN-03/29/17: Overall, Winsome is doing well. She continues to have episodes of increased anxiety, especially at night with and continues to require occasional PRN medications. Continue psychiatric care per Dr. Aceves and team. Continue to provide safe and supportive environment. Zyprexa 7.5mg added at bedtime per Dr. Aceves in light of persistent agitation in evenings. Cardiac exam reveals persistent irregularly irregular rate and rhythm but rate remains controlled. Continue digoxin every other day and continue to monitor closely. Blood pressure remains stable and patient remains afebrile. INR subtheraputic at 2.37 with pharmacy to manage. Appreciate pharmacy's assistance. Will recheck CBC and BMP in AM in light of recent medication changes to monitor blood counts, electrolytes and renal function. 03/29/17 Psych: Increased Zyprexa just last night - continue to monitor response as it appears patient is responding well to this med and dose so far. 03/30/17 Psych: Continue current care - will discuss means of addressing episodes of anxiety other ways as would like to limit further increase in Zyprexa if possible. Plan - 04/01/17: Overall, Winsome is doing well. Continue psychiatric care per Dr. Aceves and team. Continue to provide safe and supportive environment. Nursing expressed concern about possible UTI given change in behaviors including urinary frequency. UA was obtained and revealed 5-10 WBC with 4+ bacteria and positive nitrite. Culture pending. Keflex 500mg QID initiated x 7 days and will be adjusted pending sensitivities results if warranted. Continue to monitor closely for fever, vomiting, change or worsening. Currently afebrile. Vital signs remain stable. Will recheck CBC and BMP on 04/04 to monitor blood counts, electrolytes and renal function. 04/01/17 Psych: Continue current care - UA ordered and resulted as above, being treated by hospitalist. Continue current psych meds in interim and predict agitation, confusion will again decrease as UTI is treated. 04/02/17 14:29 Some agitation at times. Continue current care 04/03/17 11:14 Remains paranoid and agitated at times. Continue current care
[2017-04-03] MEDS: WARFARIN 3 MG TABLET PO SCH (12:16)
[2017-04-03] MEDS: HALOPERIDOL 0.5 MG TABLET PO PRN (16:55)
[2017-04-03] MEDS: OLANZapine 5 MG TABLET PO SCH (17:15)
[2017-04-03] MEDS: MIRTAZAPINE 30 MG TABLET PO SCH (20:09)
[2017-04-03] MEDS: MEMANTINE 10 MG TABLET PO SCH (20:09)
[2017-04-03] MEDS: ACETAMINOPHEN 325 MG TABLET PO PRN (20:09)
[2017-04-04] MEDS: DIGOXIN 125 MCG TABLET PO SCH (09:43)
[2017-04-04] MEDS: ClonazePAM 0.5 MG TABLET PO SCH ×2 (09:43→20:19)
[2017-04-04] MEDS: OMEPRAZOLE 20 MG CAPSULE PO SCH (09:43)
[2017-04-04] MEDS: POLYETHYL GLYCOL 3350 17gm PACKET PO SCH (09:43)
[2017-04-04] MEDS: CYANOCOBALAMIN (B-12) 500mcg TABLET PO SCH (09:43)
--- NOTE | 2017-04-04 11:08 | Pharmacy Consult ---
Pharmacy Consult-Warfarin - Laboratory Information 03/21/17 03/22/17 03/23/17 07:01 04:56 06:31 INR 1.85 H 1.85 H 1.97 H 03/24/17 03/25/17 03/26/17 06:45 05:11 08:25 INR 2.33 H 2.85 H 2.75 H 03/27/17 03/29/17 04/01/17 07:12 07:00 06:40 INR 2.74 H 2.39 H 2.24 H 04/04/17 06:54 INR 2.63 H - Consult Information Patient is stable on warfarin 3 mg po daily. INR today is 2.63. Warfarin 3 mg daily is her home med dose. Thank you for the consult. Cris Knowles, RayneD
[2017-04-04] MEDS: LORazepam 0.5 MG TABLET PO PRN ×2 (12:54→20:18)
[2017-04-04] MEDS: WARFARIN 3 MG TABLET PO SCH (12:54)
[2017-04-04] MEDS: MAG-AL + SIM ORAL LIQUID 30ml PO PRN (14:25)
[2017-04-04] MEDS: OLANZapine 5 MG TABLET PO SCH (17:03)
--- NOTE | 2017-04-04 19:21 | Neuropsych Progress Note ---
[facility] Subjective Date: 04/04/17 - Sujective/Severity of Illness Medications: Acetaminophen (Tylenol) 325 - 650 mg PO Q5H PRN PRN Reason: Discomfort Last Admin: 04/03/17 20:09 Dose: 650 mg Al Hydroxide/Mg Hydroxide (Maalox Plus) 30 ml PO Q6H PRN PRN Reason: Indigestion Last Admin: 04/04/17 14:25 Dose: 30 ml Bisacodyl (Dulcolax) 10 mg RECTALLY DAILY PRN PRN Reason: Constipation Bisacodyl (Dulcolax) 10 mg PO DAILY PRN PRN Reason: Constipation Last Admin: 04/02/17 14:35 Dose: 10 mg Cephalexin HCl (Keflex) 500 mg PO Q6H [facility] Stop: 04/09/17 00:01 Last Admin: 04/04/17 17:04 Dose: 500 mg Clonazepam (Klonopin) 0.5 mg PO BID [facility] Last Admin: 04/04/17 09:43 Dose: 0.5 mg Cyanocobalamin (Vit. B-12) 500 mcg PO DAILY [facility] Last Admin: 04/04/17 09:43 Dose: 500 mcg Digoxin (Lanoxin) 125 mcg PO Q2D [facility] Last Admin: 04/04/17 09:43 Dose: 125 mcg Diltiazem HCl (Cardizem Cd) 120 mg PO DAILY [facility] Last Admin: 04/04/17 09:42 Dose: 120 mg Haloperidol (Haldol) 0.5 mg PO Q6H PRN PRN Reason: Extreme agitation Last Admin: 04/03/17 16:55 Dose: 0.5 mg Haloperidol Decanoate (Haldol Liquid) 0.5 mg PO Q6H PRN Last Admin: 03/31/17 00:00 Dose: 0.5 mg Haloperidol Lactate (Haldol) 0.5 mg IM Q6H PRN PRN Reason: Extreme agitation Hyoscyamine (Levsin) 0.125 mg SL Q6HR PRN PRN Reason: Gastrointestinal upset Lorazepam (Ativan Intensol) 0.5 mg PO Q6HR PRN Last Admin: 03/31/17 00:00 Dose: 0.5 mg Lorazepam (Ativan) 1 mg PO O PRN PRN Reason: Agitation Lorazepam (Ativan) 0.5 mg PO Q6H PRN PRN Reason: Extreme agitation Last Admin: 04/04/17 12:54 Dose: 0.5 mg Lorazepam (Ativan Inj) 0.5 mg IM Q6H PRN PRN Reason: Extreme agitation Memantine (Namenda) 10 mg PO HS [facility] Last Admin: 04/03/17 20:09 Dose: 10 mg Mirtazapine (Remeron) 30 mg PO HS [facility] Last Admin: 04/03/17 20:09 Dose: 30 mg Olanzapine (Zyprexa) 7.5 mg PO 18 [facility] Last Admin: 04/04/17 17:03 Dose: 7.5 mg Omeprazole (Prilosec) 20 mg PO ACB [facility] Last Admin: 04/04/17 09:43 Dose: 20 mg Polyethylene Glycol (Miralax) 17 gm PO DAILY [facility] Last Admin: 04/04/17 09:43 Dose: 17 gm Warfarin Sodium (Coumadin Protocol) 0 [facility] NOTE SAAD Warfarin Sodium (Coumadin) 3 mg PO NOON [facility] Last Admin: 04/04/17 12:54 Dose: 3 mg Subjective: Pt seen and chart examined. Nursing reports pt was restless and agitated at times and is difficult to redirect. On face to face the pt is pleasant but confused. She is only oriented to self. She is anxious and states she is worried about her son although she can not tell me why. She denies pain and voices no other concerns Start Time: 18:30 Stop Time: 18:45 Mental Status Exam Vitals: Last Vital Signs Temp 97.2 F 04/04/17 16:00 Pulse 83 04/04/17 16:00 Resp 16 04/04/17 16:00 BP 109/52 04/04/17 16:00 Pulse Ox 98 04/04/17 16:00 Height: 1.52 m Weight: 39.599 kg - Mental Status Exam Muscle Strength/Tone: Normal, Other Dressing: Casual Grooming: Good Attitude: Other (Did not assess as patient was sleeping) Motor Activity: Other (Did not assess as patient was sleeping) Eye Contact: Fair Speech: Other Volume: Soft Rhythm: Appropriate Rhythm Orientation: Oriented to person Mood: Other (Did not assess as patient was sleeping) Rate of Thoughts: Delayed Thought Organization: [place], Confused Associations: Flight of Ideas, Illogical Abstract Reasoning: Poor abstract reasoning Thought Content: Other (Did not assess as patient was sleeping) Perception/Psychotic: Other (Did not assess as patient was sleeping) Language: Naming Impaired Fund of Knowledge: Poor fund of knowledge Memory: Poor-immediate, Poor-recent Suicidal Ideation: Denies Homicidal Ideation: Denies Insight: Impaired Judgement: Impaired Impulse Control: Poor (improved) - Laboratory Result Diagrams: 04/04/17 06:54 04/04/17 06:54 Laboratory Results - last 24 hr 04/04/17 04/04/17 04/04/17 06:54 06:54 06:54 WBC 5.1 RBC 3.82 L Hgb 11.7 L Hct 36.0 MCV 94.2 MCH 30.6 MCHC 32.5 RDW Std Deviation 43.3 Plt Count 271 MPV 10.5 Immature Gran % (Auto) 0.2 Neut % (Auto) 34.9 Lymph % (Auto) 40.9 [place] % (Auto) 11.9 H Eos % (Auto) 11.3 H Baso % (Auto) 0.8 Neut # (Auto) 1.8 Lymph # (Auto) 2.1 [place] # (Auto) 0.6 Eos # (Auto) 0.6 H Baso # (Auto) 0.0 Abs Immat Gran (auto) 0.01 INR 2.63 H Turbidity < 20 Sodium 143 Potassium 4.1 Chloride 104 Carbon Dioxide 31 H Anion Gap 8 BUN 13.0 Creatinine 0.6 L GFR Calculation 96 BUN/Creatinine Ratio 22 Glucose 90 Calculated Osmolality 275 Calcium 8.8 Icterus Index < 2 Specimen Hemolysis < 15 Assessment and Plan (1) Major neurocognitive disorder Problem details: with behavioral disturbance. Alzheimer's versus Vascular Current visit: Yes Status: Acute Hospital Course Summary Disclaimer: The visit summary below is not to be considered part of the above Progress Note. Hospital Course: 03/19/17 16:13 IMPRESSION Neurocognitive disorder with behavioral changes Normocytic anemia Dementia Anxiety & Depression A-fib - on Coumadin HTN MVP OA Asthma GERD Slow transit constipation PLAN Agree with admission. Still need to check EKG, CT head. Routine labs are also pending. Check dig level and INR. Consult pharmacy for Coumadin management. VS stable though HR has been mildly elevated - hx of A-fib, may need to investigate options for rate control. Normocytic anemia - check B12 level. Cachetic - check prealbumin level. Provide safe, supportive environment. 03/21/17 21:30 Remains confused. Will get collateral from family and discuss med options 03/22/17 IMPRESSION Neurocognitive disorder with behavioral changes Normocytic anemia Mild PCM Dementia Anxiety & Depression A-fib - on Coumadin HTN MVP OA Asthma GERD Slow transit constipation PLAN Digoxin level was normal at 0.8 though give her age and low BMI this may be on the high end for her - digoxin frequency was therefore decreased to every-other- day. HR was >100 on admission but since then has been in the 80s-90s - BP has been acceptable; could consider increasing cardizem if rate increases with reduction of dig. INR 1.85 - pharmacy managing. Prealbumin low at 13.5 - start nutritional supplements. Vit B12 was low end of normal - start supplementation. 03/22/17 17:16 Remains paranoid at times. Will discuss with family use of low dose antipsychotic 03/23/17 Psych: Agree with above plan - have attempted to contact DPOA on multiple occasions to obtain informed consent 03/24/17 Psych: Continue with PRN antipsychotics until able to obtain consent from DPOA - reportedly responds well to Haldol. If not regularly available by phone, alternate DPOA would be beneficial for best care of patient. 03/25/17 HR still controlled since digoxin frequency was reduced to every-other day. INR therapeutic - pharmacy managing Coumadin dosing. Dr. Aceves's notes reviewed - seeking permission from DPOA to start an antipsychotic. 03/25/17: Will schedule Zyprexa 2.5mg PO at dinnertime. Monitor mood, behavior and response to treatment. 03/26/17 12:50 Remains agitated at times. increase Zyprexa to 5mg at dinner time 03/27/17 11:16 No behaviors today. Remains confused. Continue current care 03/28/17 Psych: Increase Zyprexa to 7.5mg PO at dinnertime as still has intermittent agitation requiring multiple PRNs in past 24 hours. PLAN-03/29/17: Overall, Winsome is doing well. She continues to have episodes of increased anxiety, especially at night with owners and continues to require occasional PRN medications. Continue psychiatric care per Dr. Aceves and team. Continue to provide safe and supportive environment. Zyprexa 7.5mg added at bedtime per Dr. Aceves in light of persistent agitation in evenings. Cardiac exam reveals persistent irregularly irregular rate and rhythm but rate remains controlled. Continue digoxin every other day and continue to monitor closely. Blood pressure remains stable and patient remains afebrile. INR subtheraputic at 2.37 with pharmacy to manage. Appreciate pharmacy's assistance. Will recheck CBC and BMP in AM in light of recent medication changes to monitor blood counts, electrolytes and renal function. 03/29/17 Psych: Increased Zyprexa just last night - continue to monitor response as it appears patient is responding well to this med and dose so far. 03/30/17 Psych: Continue current care - will discuss means of addressing episodes of anxiety other ways as would like to limit further increase in Zyprexa if possible. Plan - 04/01/17: Overall, Winsome is doing well. Continue psychiatric care per Dr. Aceves and team. Continue to provide safe and supportive environment. Nursing expressed concern about possible UTI given change in behaviors including urinary frequency. UA was obtained and revealed 5-10 WBC with 4+ bacteria and positive nitrite. Culture pending. Keflex 500mg QID initiated x 7 days and will be adjusted pending sensitivities results if warranted. Continue to monitor closely for fever, vomiting, change or worsening. Currently afebrile. Vital signs remain stable. Will recheck CBC and BMP on 04/04 to monitor blood counts, electrolytes and renal function. 04/01/17 Psych: Continue current care - UA ordered and resulted as above, being treated by hospitalist. Continue current psych meds in interim and predict agitation, confusion will again decrease as UTI is treated. 04/02/17 14:29 Some agitation at times. Continue current care 04/03/17 11:14 Remains paranoid and agitated at times. Continue current care 04/04/17 19:21 Remains agitated at times and anxious. Will start Depakote 125mg PO BID
[2017-04-04] MEDS: HALOPERIDOL 0.5 MG TABLET PO PRN (20:18)
[2017-04-04] MEDS: MIRTAZAPINE 30 MG TABLET PO SCH (20:18)
[2017-04-04] MEDS: DIVALPROEX 125 MG TABLET PO SCH (20:18)
[2017-04-04] MEDS: MEMANTINE 10 MG TABLET PO SCH (20:19)
[2017-04-05] MEDS: OMEPRAZOLE 20 MG CAPSULE PO SCH (06:47)
[2017-04-05] MEDS: ClonazePAM 0.5 MG TABLET PO SCH ×2 (08:07→20:52)
[2017-04-05] MEDS: POLYETHYL GLYCOL 3350 17gm PACKET PO SCH (08:07)
[2017-04-05] MEDS: DIVALPROEX 125 MG TABLET PO SCH ×2 (08:08→20:52)
[2017-04-05] MEDS: CYANOCOBALAMIN (B-12) 500mcg TABLET PO SCH (08:08)
[2017-04-05] MEDS: WARFARIN 3 MG TABLET PO SCH (11:56)
[2017-04-05] MEDS: LORazepam 0.5 MG TABLET PO PRN (16:41)
[2017-04-05] MEDS: HALOPERIDOL 0.5 MG TABLET PO PRN (16:41)
[2017-04-05] MEDS: MAG-AL + SIM ORAL LIQUID 30ml PO PRN (17:51)
[2017-04-05] MEDS: OLANZapine 5 MG TABLET PO SCH (20:51)
[2017-04-05] MEDS: MIRTAZAPINE 30 MG TABLET PO SCH (20:52)
[2017-04-05] MEDS: MEMANTINE 10 MG TABLET PO SCH (20:52)
--- NOTE | 2017-04-05 21:39 | Neuropsych Progress Note ---
[facility] Subjective Date: 04/05/17 - Sujective/Severity of Illness Medications: Acetaminophen (Tylenol) 325 - 650 mg PO Q5H PRN PRN Reason: Discomfort Last Admin: 04/03/17 20:09 Dose: 650 mg Al Hydroxide/Mg Hydroxide (Maalox Plus) 30 ml PO Q6H PRN PRN Reason: Indigestion Last Admin: 04/05/17 17:51 Dose: 30 ml Bisacodyl (Dulcolax) 10 mg RECTALLY DAILY PRN PRN Reason: Constipation Bisacodyl (Dulcolax) 10 mg PO DAILY PRN PRN Reason: Constipation Last Admin: 04/02/17 14:35 Dose: 10 mg Cephalexin HCl (Keflex) 500 mg PO Q6H [facility] Stop: 04/09/17 00:01 Last Admin: 04/05/17 17:29 Dose: 500 mg Clonazepam (Klonopin) 0.5 mg PO BID [facility] Last Admin: 04/05/17 20:52 Dose: 0.5 mg Cyanocobalamin (Vit. B-12) 500 mcg PO DAILY [facility] Last Admin: 04/05/17 08:08 Dose: 500 mcg Digoxin (Lanoxin) 125 mcg PO Q2D [facility] Last Admin: 04/04/17 09:43 Dose: 125 mcg Diltiazem HCl (Cardizem Cd) 120 mg PO DAILY [facility] Last Admin: 04/05/17 08:07 Dose: 120 mg Divalproex Sodium (Depakote) 125 mg PO BID [facility] Last Admin: 04/05/17 20:52 Dose: 125 mg Haloperidol (Haldol) 0.5 mg PO Q6H PRN PRN Reason: Extreme agitation Last Admin: 04/05/17 16:41 Dose: 0.5 mg Haloperidol Decanoate (Haldol Liquid) 0.5 mg PO Q6H PRN Last Admin: 03/31/17 00:00 Dose: 0.5 mg Haloperidol Lactate (Haldol) 0.5 mg IM Q6H PRN PRN Reason: Extreme agitation Hyoscyamine (Levsin) 0.125 mg SL Q6HR PRN PRN Reason: Gastrointestinal upset Lorazepam (Ativan Intensol) 0.5 mg PO Q6HR PRN Last Admin: 03/31/17 00:00 Dose: 0.5 mg Lorazepam (Ativan) 1 mg PO O PRN PRN Reason: Agitation Lorazepam (Ativan) 0.5 mg PO Q6H PRN PRN Reason: Extreme agitation Last Admin: 04/05/17 16:41 Dose: 0.5 mg Lorazepam (Ativan Inj) 0.5 mg IM Q6H PRN PRN Reason: Extreme agitation Memantine (Namenda) 10 mg PO HS [facility] Last Admin: 04/05/17 20:52 Dose: 10 mg Mirtazapine (Remeron) 30 mg PO HS [facility] Last Admin: 04/05/17 20:52 Dose: 30 mg Omeprazole (Prilosec) 20 mg PO ACB [facility] Last Admin: 04/05/17 06:47 Dose: 20 mg Polyethylene Glycol (Miralax) 17 gm PO DAILY [facility] Last Admin: 04/05/17 08:07 Dose: 17 gm Warfarin Sodium (Coumadin Protocol) 0 [facility] NOTE SAAD Warfarin Sodium (Coumadin) 3 mg PO NOON [facility] Last Admin: 04/05/17 11:56 Dose: 3 mg Subjective: Patient seen and chart reviewed. Case discussed with treatment team. On interview, patient is pleasant and cooperative, and makes jokes with me and staff. She doesn't have any insight into symptoms or hospitalization. Patient denies any SI, HI or AVH. Patient denies any adverse side effects related to psychotropic medications. Nursing staff report patient tends to upregulate in mid-afternoon and through evening. Patient slept well overnight. VSS. Patient is eating well. Psychotropic PRNs required in the past 24 hours: given Ativan, Haldol in evening. Start Time: 15:20 Stop Time: 15:40 Mental Status Exam Vitals: Last Vital Signs Temp 97.2 F 04/05/17 16:00 Pulse 105 H 04/05/17 16:00 Resp 12 04/05/17 16:00 BP 138/56 04/05/17 16:00 Pulse Ox 98 04/05/17 16:00 Height: 1.52 m Weight: 40.8 kg - Mental Status Exam Muscle Strength/Tone: Normal Dressing: Casual Grooming: Good Attitude: Cooperative Motor Activity: Normal (paces at times, not during interview) Eye Contact: Fair Speech: Other Volume: Soft Rhythm: Appropriate Rhythm Orientation: Oriented to person Mood: Euthymic Affect: Bright (though reportedly becomes more anxious later in day) Rate of Thoughts: Delayed Thought Organization: [place], Confused Associations: Flight of Ideas, Illogical Abstract Reasoning: Poor abstract reasoning Thought Content: Other (no insight into hospitalization, has good sense of humor ) Perception/Psychotic: Hx psychosis, not current Language: Naming Impaired Fund of Knowledge: Poor fund of knowledge Memory: Poor-immediate, Poor-recent Suicidal Ideation: Denies Homicidal Ideation: Denies Insight: Impaired Judgement: Impaired Impulse Control: Poor (improved) - Laboratory Result Diagrams: 04/04/17 06:54 04/04/17 06:54 Assessment and Plan (1) Major neurocognitive disorder Problem details: with behavioral disturbance. Alzheimer's versus Vascular Current visit: Yes Status: Acute Hospital Course Summary Disclaimer: The visit summary below is not to be considered part of the above Progress Note. Hospital Course: 03/19/17 16:13 IMPRESSION Neurocognitive disorder with behavioral changes Normocytic anemia Dementia Anxiety & Depression A-fib - on Coumadin HTN MVP OA Asthma GERD Slow transit constipation PLAN Agree with admission. Still need to check EKG, CT head. Routine labs are also pending. Check dig level and INR. Consult pharmacy for Coumadin management. VS stable though HR has been mildly elevated - hx of A-fib, may need to investigate options for rate control. Normocytic anemia - check B12 level. Cachetic - check prealbumin level. Provide safe, supportive environment. 03/21/17 21:30 Remains confused. Will get collateral from family and discuss med options 03/22/17 IMPRESSION Neurocognitive disorder with behavioral changes Normocytic anemia Mild PCM Dementia Anxiety & Depression A-fib - on Coumadin HTN MVP OA Asthma GERD Slow transit constipation PLAN Digoxin level was normal at 0.8 though give her age and low BMI this may be on the high end for her - digoxin frequency was therefore decreased to every-other- day. HR was >100 on admission but since then has been in the 80s-90s - BP has been acceptable; could consider increasing cardizem if rate increases with reduction of dig. INR 1.85 - pharmacy managing. Prealbumin low at 13.5 - start nutritional supplements. Vit B12 was low end of normal - start supplementation. 03/22/17 17:16 Remains paranoid at times. Will discuss with family use of low dose antipsychotic 03/23/17 Psych: Agree with above plan - have attempted to contact [facility] on multiple occasions to obtain informed consent 03/24/17 Psych: Continue with PRN antipsychotics until able to obtain consent from DPOA - reportedly responds well to Haldol. If not regularly available by phone, alternate DPOA would be beneficial for best care of patient. 03/25/17 HR still controlled since digoxin frequency was reduced to every-other day. INR therapeutic - pharmacy managing Coumadin dosing. Dr. Aceves's notes reviewed - seeking permission from DPOA to start an antipsychotic. 03/25/17: Will schedule Zyprexa 2.5mg PO at dinnertime. Monitor mood, behavior and response to treatment. 03/26/17 12:50 Remains agitated at times. increase Zyprexa to 5mg at dinner time 03/27/17 11:16 No behaviors today. Remains confused. Continue current care 03/28/17 Psych: Increase Zyprexa to 7.5mg PO at dinnertime as still has intermittent agitation requiring multiple PRNs in past 24 hours. PLAN-03/29/17: Overall, Winsome is doing well. She continues to have episodes of increased anxiety, especially at night with sundowners and continues to require occasional PRN medications. Continue psychiatric care per Dr. Aceves and team. Continue to provide safe and supportive environment. Zyprexa 7.5mg added at bedtime per Dr. Aceves in light of persistent agitation in evenings. Cardiac exam reveals persistent irregularly irregular rate and rhythm but rate remains controlled. Continue digoxin every other day and continue to monitor closely. Blood pressure remains stable and patient remains afebrile. INR subtheraputic at 2.37 with pharmacy to manage. Appreciate pharmacy's assistance. Will recheck CBC and BMP in AM in light of recent medication changes to monitor blood counts, electrolytes and renal function. 03/29/17 Psych: Increased Zyprexa just last night - continue to monitor response as it appears patient is responding well to this med and dose so far. 03/30/17 Psych: Continue current care - will discuss means of addressing episodes of anxiety other ways as would like to limit further increase in Zyprexa if possible. Plan - 04/01/17: Overall, Winsome is doing well. Continue psychiatric care per Dr. Aceves and team. Continue to provide safe and supportive environment. Nursing expressed concern about possible UTI given change in behaviors including urinary frequency. UA was obtained and revealed 5-10 WBC with 4+ bacteria and positive nitrite. Culture pending. Keflex 500mg QID initiated x 7 days and will be adjusted pending sensitivities results if warranted. Continue to monitor closely for fever, vomiting, change or worsening. Currently afebrile. Vital signs remain stable. Will recheck CBC and BMP on 04/04 to monitor blood counts, electrolytes and renal function. 04/01/17 Psych: Continue current care - UA ordered and resulted as above, being treated by hospitalist. Continue current psych meds in interim and predict agitation, confusion will again decrease as UTI is treated. 04/02/17 14:29 Some agitation at times. Continue current care 04/03/17 11:14 Remains paranoid and agitated at times. Continue current care 04/04/17 19:21 Remains agitated at times and anxious. Will start Depakote 125mg PO BID 04/05/17 Psych: Patient has continued to upregulate, requiring PRNs most recent days. Will discontinue Zyprexa, switch to Risperdal 0.5mg PO BID (at 1400, HS) and continue low-dose Depakote as above. Monitor mood, behavior and response to treatment. Suspect will need to increase dose of Risperdal at HS but will monitor.
[2017-04-06] MEDS: OMEPRAZOLE 20 MG CAPSULE PO SCH (05:34)
[2017-04-06] MEDS: DIGOXIN 125 MCG TABLET PO SCH (08:09)
[2017-04-06] MEDS: DIVALPROEX 125 MG TABLET PO SCH ×2 (08:10→20:02)
[2017-04-06] MEDS: ClonazePAM 0.5 MG TABLET PO SCH ×2 (08:10→20:02)
[2017-04-06] MEDS: POLYETHYL GLYCOL 3350 17gm PACKET PO SCH (08:11)
[2017-04-06] MEDS: CYANOCOBALAMIN (B-12) 500mcg TABLET PO SCH (08:27)
[2017-04-06] MEDS: WARFARIN 3 MG TABLET PO SCH (14:42)
[2017-04-06] MEDS: RisperiDONE 0.5 MG TABLET PO SCH ×2 (14:42→20:02)
[2017-04-06] MEDS: LORazepam 0.5 MG TABLET PO PRN (17:03)
[2017-04-06] MEDS: HALOPERIDOL 0.5 MG TABLET PO PRN (17:03)
[2017-04-06] MEDS: MIRTAZAPINE 30 MG TABLET PO SCH (20:02)
[2017-04-06] MEDS: MEMANTINE 10 MG TABLET PO SCH (20:02)
--- NOTE | 2017-04-06 20:41 | Neuropsych Progress Note ---
[facility] Subjective Date: 04/07/17 - Sujective/Severity of Illness Medications: Acetaminophen (Tylenol) 325 - 650 mg PO Q5H PRN PRN Reason: Discomfort Last Admin: 04/03/17 20:09 Dose: 650 mg Al Hydroxide/Mg Hydroxide (Maalox Plus) 30 ml PO Q6H PRN PRN Reason: Indigestion Last Admin: 04/05/17 17:51 Dose: 30 ml Bisacodyl (Dulcolax) 10 mg RECTALLY DAILY PRN PRN Reason: Constipation Bisacodyl (Dulcolax) 10 mg PO DAILY PRN PRN Reason: Constipation Last Admin: 04/02/17 14:35 Dose: 10 mg Cephalexin HCl (Keflex) 500 mg PO Q6H [facility] Stop: 04/09/17 00:01 Last Admin: 04/06/17 17:03 Dose: 500 mg Clonazepam (Klonopin) 0.5 mg PO BID [facility] Last Admin: 04/06/17 20:02 Dose: 0.5 mg Cyanocobalamin (Vit. B-12) 500 mcg PO DAILY [facility] Last Admin: 04/06/17 08:27 Dose: 500 mcg Digoxin (Lanoxin) 125 mcg PO Q2D [facility] Last Admin: 04/06/17 08:09 Dose: 125 mcg Diltiazem HCl (Cardizem Cd) 120 mg PO DAILY [facility] Last Admin: 04/06/17 08:10 Dose: 120 mg Divalproex Sodium (Depakote) 125 mg PO BID [facility] Last Admin: 04/06/17 20:02 Dose: 125 mg Haloperidol (Haldol) 0.5 mg PO Q6H PRN PRN Reason: Extreme agitation Last Admin: 04/06/17 17:03 Dose: 0.5 mg Haloperidol Decanoate (Haldol Liquid) 0.5 mg PO Q6H PRN Last Admin: 03/31/17 00:00 Dose: 0.5 mg Haloperidol Lactate (Haldol) 0.5 mg IM Q6H PRN PRN Reason: Extreme agitation Hyoscyamine (Levsin) 0.125 mg SL Q6HR PRN PRN Reason: Gastrointestinal upset Lorazepam (Ativan Intensol) 0.5 mg PO Q6HR PRN Last Admin: 03/31/17 00:00 Dose: 0.5 mg Lorazepam (Ativan) 1 mg PO O PRN PRN Reason: Agitation Lorazepam (Ativan) 0.5 mg PO Q6H PRN PRN Reason: Extreme agitation Last Admin: 04/06/17 17:03 Dose: 0.5 mg Lorazepam (Ativan Inj) 0.5 mg IM Q6H PRN PRN Reason: Extreme agitation Memantine (Namenda) 10 mg PO HS [facility] Last Admin: 04/06/17 20:02 Dose: 10 mg Mirtazapine (Remeron) 30 mg PO HS [facility] Last Admin: 04/06/17 20:02 Dose: 30 mg Omeprazole (Prilosec) 20 mg PO ACB [facility] Last Admin: 04/06/17 05:34 Dose: 20 mg Polyethylene Glycol (Miralax) 17 gm PO DAILY [facility] Last Admin: 04/06/17 08:11 Dose: 17 gm Risperidone (Risperdal) 0.5 mg PO 14,21 [facility] Last Admin: 04/06/17 20:02 Dose: 0.5 mg Warfarin Sodium (Coumadin Protocol) 0 MC NOTE [facility] Warfarin Sodium (Coumadin) 3 mg PO NOON [facility] Last Admin: 04/06/17 14:42 Dose: 3 mg Subjective: Patient seen and chart reviewed. Case discussed with treatment team. On interview, patient is pleasant and cooperative, and makes jokes with me and staff. She doesn't have any insight into symptoms or hospitalization. Patient denies any SI, HI or AVH. Patient denies any adverse side effects related to psychotropic medications. Nursing staff report patient tends to upregulate in mid-afternoon and through evening. Patient slept well overnight. VSS. Patient is eating well. Start Time: 14:40 Stop Time: 15:00 Mental Status Exam Vitals: Last Vital Signs Temp 98.6 F 04/06/17 19:49 Pulse 86 04/06/17 19:49 Resp 22 04/06/17 19:49 BP 105/52 04/06/17 19:49 Pulse Ox 97 04/06/17 19:49 Height: 1.52 m Weight: 40.8 kg - Mental Status Exam Muscle Strength/Tone: Normal Dressing: Casual Grooming: Good Attitude: Cooperative Motor Activity: Normal (paces at times, not during interview) Eye Contact: Fair Speech: Other Volume: Soft Rhythm: Appropriate Rhythm Orientation: Oriented to person Mood: Euthymic Rate of Thoughts: Delayed Thought Organization: [place], Confused Associations: Flight of Ideas, Illogical Abstract Reasoning: Poor abstract reasoning Thought Content: Other (no insight into hospitalization, has good sense of humor ) Perception/Psychotic: Hx psychosis, not current Language: Naming Impaired Fund of Knowledge: Poor fund of knowledge Memory: Poor-immediate, Poor-recent Suicidal Ideation: Denies Homicidal Ideation: Denies Insight: Impaired Judgement: Impaired Impulse Control: Poor (improved) - Laboratory Result Diagrams: 04/07/17 13:45 04/07/17 13:58 Assessment and Plan (1) Major neurocognitive disorder Problem details: with behavioral disturbance. Alzheimer's versus Vascular Current visit: Yes Status: Acute Hospital Course Summary Disclaimer: The visit summary below is not to be considered part of the above Progress Note. Hospital Course: 03/19/17 16:13 IMPRESSION Neurocognitive disorder with behavioral changes Normocytic anemia Dementia Anxiety & Depression A-fib - on Coumadin HTN MVP OA Asthma GERD Slow transit constipation PLAN Agree with admission. Still need to check EKG, CT head. Routine labs are also pending. Check dig level and INR. Consult pharmacy for Coumadin management. VS stable though HR has been mildly elevated - hx of A-fib, may need to investigate options for rate control. Normocytic anemia - check B12 level. Cachetic - check prealbumin level. Provide safe, supportive environment. 03/21/17 21:30 Remains confused. Will get collateral from family and discuss med options 03/22/17 IMPRESSION Neurocognitive disorder with behavioral changes Normocytic anemia Mild PCM Dementia Anxiety & Depression A-fib - on Coumadin HTN MVP OA Asthma GERD Slow transit constipation PLAN Digoxin level was normal at 0.8 though give her age and low BMI this may be on the high end for her - digoxin frequency was therefore decreased to every-other- day. HR was >100 on admission but since then has been in the 80s-90s - BP has been acceptable; could consider increasing cardizem if rate increases with reduction of dig. INR 1.85 - pharmacy managing. Prealbumin low at 13.5 - start nutritional supplements. Vit B12 was low end of normal - start supplementation. 03/22/17 17:16 Remains paranoid at times. Will discuss with family use of low dose antipsychotic 03/23/17 Psych: Agree with above plan - have attempted to contact [facility] on multiple occasions to obtain informed consent 03/24/17 Psych: Continue with PRN antipsychotics until able to obtain consent from DPOA - reportedly responds well to Haldol. If not regularly available by phone, alternate DPOA would be beneficial for best care of patient. 03/25/17 HR still controlled since digoxin frequency was reduced to every-other day. INR therapeutic - pharmacy managing Coumadin dosing. Dr. Aceves's notes reviewed - seeking permission from DPOA to start an antipsychotic. 03/25/17: Will schedule Zyprexa 2.5mg PO at dinnertime. Monitor mood, behavior and response to treatment. 03/26/17 12:50 Remains agitated at times. increase Zyprexa to 5mg at dinner time 03/27/17 11:16 No behaviors today. Remains confused. Continue current care 03/28/17 Psych: Increase Zyprexa to 7.5mg PO at dinnertime as still has intermittent agitation requiring multiple PRNs in past 24 hours. PLAN-03/29/17: Overall, Winsome is doing well. She continues to have episodes of increased anxiety, especially at night with sundowners and continues to require occasional PRN medications. Continue psychiatric care per Dr. Aceves and team. Continue to provide safe and supportive environment. Zyprexa 7.5mg added at bedtime per Dr. Aceves in light of persistent agitation in evenings. Cardiac exam reveals persistent irregularly irregular rate and rhythm but rate remains controlled. Continue digoxin every other day and continue to monitor closely. Blood pressure remains stable and patient remains afebrile. INR subtheraputic at 2.37 with pharmacy to manage. Appreciate pharmacy's assistance. Will recheck CBC and BMP in AM in light of recent medication changes to monitor blood counts, electrolytes and renal function. 03/29/17 Psych: Increased Zyprexa just last night - continue to monitor response as it appears patient is responding well to this med and dose so far. 03/30/17 Psych: Continue current care - will discuss means of addressing episodes of anxiety other ways as would like to limit further increase in Zyprexa if possible. Plan - 04/01/17: Overall, Winsome is doing well. Continue psychiatric care per Dr. Aceves and team. Continue to provide safe and supportive environment. Nursing expressed concern about possible UTI given change in behaviors including urinary frequency. UA was obtained and revealed 5-10 WBC with 4+ bacteria and positive nitrite. Culture pending. Keflex 500mg QID initiated x 7 days and will be adjusted pending sensitivities results if warranted. Continue to monitor closely for fever, vomiting, change or worsening. Currently afebrile. Vital signs remain stable. Will recheck CBC and BMP on 04/04 to monitor blood counts, electrolytes and renal function. 04/01/17 Psych: Continue current care - UA ordered and resulted as above, being treated by hospitalist. Continue current psych meds in interim and predict agitation, confusion will again decrease as UTI is treated. 04/02/17 14:29 Some agitation at times. Continue current care 04/03/17 11:14 Remains paranoid and agitated at times. Continue current care 04/04/17 19:21 Remains agitated at times and anxious. Will start Depakote 125mg PO BID 04/05/17 Psych: Patient has continued to upregulate, requiring PRNs most recent days. Will discontinue Zyprexa, switch to Risperdal 0.5mg PO BID (at 1400, HS) and continue low-dose Depakote as above. Monitor mood, behavior and response to treatment. Suspect will need to increase dose of Risperdal at HS but will monitor. 04/06/17 Psych: Continue current care as just switched antipsychotics; monitor response.
[2017-04-06] MEDS: HALOPERIDOL 1 MG/0.5 ML ORAL LIQUID PO PRN (22:55)
[2017-04-06] MEDS: LORazepam INTENSOL 1mg/0.5ml ORAL LIQUID PO PRN (22:56)
[2017-04-07] MEDS: OMEPRAZOLE 20 MG CAPSULE PO SCH (10:09)
[2017-04-07] MEDS: ClonazePAM 0.5 MG TABLET PO SCH ×2 (10:10→20:16)
[2017-04-07] MEDS: DIVALPROEX 125 MG TABLET PO SCH ×2 (10:10→20:16)
[2017-04-07] MEDS: CYANOCOBALAMIN (B-12) 500mcg TABLET PO SCH (10:10)
[2017-04-07] MEDS: POLYETHYL GLYCOL 3350 17gm PACKET PO SCH (10:11)
[2017-04-07] MEDS: Bisacodyl EC TAB 5 MG TABLET PO PRN (11:36)
[2017-04-07] MEDS: WARFARIN 3 MG TABLET PO SCH (12:15)
--- NOTE | 2017-04-07 13:08 | Progress Note ---
<Giovanna Arguello D - Last Filed: 04/07/17 13:04> - Date 04/07/17 Subjective: Winsome was sitting in a recliner in the dayroom. She looked like she didn't feel well and in fact told me that she is "not well". She complains of abdominal pain and pointed to her suprapubic area. Nurses also state that she has been c/o burning on urination. No fevers. She denies SOA or chest pain. Overall appetite has been good and she's having almost daily BM. Objective Vital signs: Temperature 97.1 F 04/07/17 08:00 Pulse Rate 104 H 04/07/17 08:00 Respiratory Rate 18 04/07/17 08:00 Blood Pressure 146/67 H 04/07/17 08:00 Pulse Oximetry 97 04/07/17 08:00 Height/Weight/BMI: Height 1.52 m Weight 40.8 kg Body Mass Index 16.5 - Constitutional Present: mild distress, well nourished, well developed, thin - Routine HEENT Exam Eye: Absent: conjunctival icterus, scleral injection ENT: Present: mucous membranes moist, oropharynx clear - Routine Respiratory Exam Present: CTA bilaterally - Routine Cardiovascular Exam Present: irregular rhythm - Routine Abdominal Exam Present: normoactive bowel sounds, tenderness (suprapubic), distended (mild) - Routine Extremities Exam Present: no edema - Routine Musculoskeletal Exam Musculoskeletal: Present: moving extremities well - Routine Skin Exam Present: intact, dry, warm - Routine Neurological Exam Present: alert, normal speech. Absent: facial asymmetry - Routine Psychiatric Exam Present: normal thought process, cooperative Results - Labs CBC & Chem 7: 04/04/17 06:54 04/04/17 06:54 Microbiology Results: Microbiology 04/01/17 13:10 Urine, Voided (Cc/notcc) Urine Culture - Final Coag negative Staphylococcus Assessment and Plan (1) Neurocognitive disorder Current visit: Yes Status: Acute Assessment and Plan: IMPRESSION Neurocognitive disorder with behavioral changes Normocytic anemia Mild PCM Dementia Anxiety & Depression A-fib - on Coumadin HTN MVP OA Asthma GERD Slow transit constipation PLAN Looks moderately ill; c/o burning on urination and suprapubic pain. Previous UC + for [employer]PRES[employer]IVE - on Keflex since 04/03 but C&S shows resistance. BP normal; has intermittent tachycardia, which has been seen since arrival; no tachypnea. Will check CBC, lactate, procalcitonin, BC x2, CMP and repeat UA. Stop Keflex; start Pyridium after UA sample is obtained. Will also repeat dig level and obtain valproic acid level. Dr. Aceves's last progress note reviewed - multiple medication changes. DVT Prophylaxis: Coumadin Resuscitation Status: Full Code Hospital Course Summary Disclaimer: The visit summary below is not to be considered part of the above Progress Note. Hospital Course: 03/19/17 16:13 IMPRESSION Neurocognitive disorder with behavioral changes Normocytic anemia Dementia Anxiety & Depression A-fib - on Coumadin HTN MVP OA Asthma GERD Slow transit constipation PLAN Agree with admission. Still need to check EKG, CT head. Routine labs are also pending. Check dig level and INR. Consult pharmacy for Coumadin management. VS stable though HR has been mildly elevated - hx of A-fib, may need to investigate options for rate control. Normocytic anemia - check B12 level. Cachetic - check prealbumin level. Provide safe, supportive environment. 03/21/17 21:30 Remains confused. Will get collateral from family and discuss med options 03/22/17 IMPRESSION Neurocognitive disorder with behavioral changes Normocytic anemia Mild PCM Dementia Anxiety & Depression A-fib - on Coumadin HTN MVP OA Asthma GERD Slow transit constipation PLAN Digoxin level was normal at 0.8 though give her age and low BMI this may be on the high end for her - digoxin frequency was therefore decreased to every-other- day. HR was >100 on admission but since then has been in the 80s-90s - BP has been acceptable; could consider increasing cardizem if rate increases with reduction of dig. INR 1.85 - pharmacy managing. Prealbumin low at 13.5 - start nutritional supplements. Vit B12 was low end of normal - start supplementation. 03/22/17 17:16 Remains paranoid at times. Will discuss with family use of low dose antipsychotic 03/23/17 Psych: Agree with above plan - have attempted to contact DPOA on multiple occasions to obtain informed consent 03/24/17 Psych: Continue with PRN antipsychotics until able to obtain consent from DPOA - reportedly responds well to Haldol. If not regularly available by phone, alternate DPOA would be beneficial for best care of patient. 03/25/17 HR still controlled since digoxin frequency was reduced to every-other day. INR therapeutic - pharmacy managing Coumadin dosing. Dr. Aceves's notes reviewed - seeking permission from [facility] to start an antipsychotic. 03/25/17: Will schedule Zyprexa 2.5mg PO at dinnertime. Monitor mood, behavior and response to treatment. 03/26/17 12:50 Remains agitated at times. increase Zyprexa to 5mg at dinner time 03/27/17 11:16 No behaviors today. Remains confused. Continue current care 03/28/17 Psych: Increase Zyprexa to 7.5mg PO at dinnertime as still has intermittent agitation requiring multiple PRNs in past 24 hours. PLAN-03/29/17: Overall, Winsome is doing well. She continues to have episodes of increased anxiety, especially at night with and continues to require occasional PRN medications. Continue psychiatric care per Dr. Aceves and team. Continue to provide safe and supportive environment. Zyprexa 7.5mg added at bedtime per Dr. Aceves in light of persistent agitation in evenings. Cardiac exam reveals persistent irregularly irregular rate and rhythm but rate remains controlled. Continue digoxin every other day and continue to monitor closely. Blood pressure remains stable and patient remains afebrile. INR subtheraputic at 2.37 with pharmacy to manage. Appreciate pharmacy's assistance. Will recheck CBC and BMP in AM in light of recent medication changes to monitor blood counts, electrolytes and renal function. 03/29/17 Psych: Increased Zyprexa just last night - continue to monitor response as it appears patient is responding well to this med and dose so far. 03/30/17 Psych: Continue current care - will discuss means of addressing episodes of anxiety other ways as would like to limit further increase in Zyprexa if possible. Plan - 04/01/17: Overall, Winsome is doing well. Continue psychiatric care per Dr. Aceves and team. Continue to provide safe and supportive environment. Nursing expressed concern about possible UTI given change in behaviors including urinary frequency. UA was obtained and revealed 5-10 WBC with 4+ bacteria and positive nitrite. Culture pending. Keflex 500mg QID initiated x 7 days and will be adjusted pending sensitivities results if warranted. Continue to monitor closely for fever, vomiting, change or worsening. Currently afebrile. Vital signs remain stable. Will recheck CBC and BMP on 04/04 to monitor blood counts, electrolytes and renal function. 04/01/17 Psych: Continue current care - UA ordered and resulted as above, being treated by hospitalist. Continue current psych meds in interim and predict agitation, confusion will again decrease as UTI is treated. 04/02/17 14:29 Some agitation at times. Continue current care 04/03/17 11:14 Remains paranoid and agitated at times. Continue current care 04/04/17 19:21 Remains agitated at times and anxious. Will start Depakote 125mg PO BID 04/05/17 Psych: Patient has continued to upregulate, requiring PRNs most recent days. Will discontinue Zyprexa, switch to Risperdal 0.5mg PO BID (at 1400, HS) and continue low-dose Depakote as above. Monitor mood, behavior and response to treatment. Suspect will need to increase dose of Risperdal at HS but will monitor. 04/07/17 Looks moderately ill; c/o burning on urination and suprapubic pain. Previous UC + for [employer] REPRESENT[employer]IVE - on Keflex since 04/03 but C&S shows resistance. BP normal; has intermittent tachycardia, which has been seen since arrival; no tachypnea. Will check CBC, lactate, procalcitonin, BC x2, CMP and repeat UA. Stop Keflex; start Pyridium after UA sample is obtained. Will also repeat dig level and obtain valproic acid level. <Khurram Echeverria IV - Last Filed: 04/07/17 14:43> - Date 04/07/17 Objective Vital signs: Temperature 97.1 F 04/07/17 08:00 Pulse Rate 104 H 04/07/17 08:00 Respiratory Rate 18 04/07/17 08:00 Blood Pressure 146/67 H 04/07/17 08:00 Pulse Oximetry 97 04/07/17 08:00 Height/Weight/BMI: Height 5 ft Weight 40.8 kg Body Mass Index 16.5 Results - Labs CBC & Chem 7: 04/07/17 13:45 04/07/17 13:58 Microbiology Results: Microbiology 04/07/17 13:58 Peripheral/Iv Start Blood Culture - Preliminary Culture Initiated - Results Pending 04/07/17 13:45 Peripheral/Iv Start Blood Culture - Preliminary Culture Initiated - Results Pending 04/01/17 13:10 Urine, Voided (Cc/notcc) Urine Culture - Final Coag negative Staphylococcus Assessment and Plan (1) Neurocognitive disorder Current visit: Yes Status: Acute Assessment and Plan: I have independently evaluated and examined this patient. I reviewed the chart, the patient's history, and the TECHNOLOG[employer] EDUCATION INSTRUCTOR/PA's documented findings as above. We discussed and formulated the assessment and plan as above with additions as below: Winsome was in a recliner in the day room. She said she felt good and denies any problems. Nurse confirms patient has been having dysuria. mild distress, ctab, irregularly irregular, s/nt/nd +bs, no edema, cn ii-xii intact Obtain lab, including UA w/ cx. Hospital Course Summary Disclaimer: The visit summary below is not to be considered part of the above Progress Note.
[2017-04-07] MEDS: RisperiDONE 0.5 MG TABLET PO SCH (14:30)
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
[2017-04-07] MEDS: PHENAZOPYRIDINE 95 MG TABLET PO SCH (18:02)
[2017-04-07] MEDS: MEMANTINE 10 MG TABLET PO SCH (20:16)
[2017-04-07] MEDS: MIRTAZAPINE 30 MG PO SCH (20:16)
[2017-04-07] MEDS: SOLU PO SCH (20:16)
[2017-04-07] MEDS: RisperiDONE ODT 0.5 MG TABLET PO SCH (20:18)
[2017-04-07] MEDS: ACETAMINOPHEN 325 MG TABLET PO PRN (20:18)
[2017-04-07] MEDS: LORazepam INTENSOL 1mg/0.5ml ORAL LIQUID PO PRN (22:24)
--- NOTE | 2017-04-08 08:29 | Progress Note ---
Progress Note: Patient is complaining of not feeling well and has suprapubic pain and dysuria. Had a recent urine culture showing growth of coag neg staph. Was on Keflex which has not helped sxs. UA yesterday shows 2+ leuks and tr bld. Will start doxy based on classic UTI sxs and previous culture. Repeat urine culture prior to starting atbx. Labs yesterday, including lactate, cbc and procalictonin, were neg.
[2017-04-08] MEDS: DIVALPROEX 125 MG TABLET PO SCH ×2 (08:54→20:04)
[2017-04-08] MEDS: ClonazePAM 0.5 MG TABLET PO SCH ×2 (08:54→20:04)
[2017-04-08] MEDS: PHENAZOPYRIDINE 95 MG TABLET PO SCH ×3 (08:54→17:31)
[2017-04-08] MEDS: OMEPRAZOLE 20 MG CAPSULE PO SCH (08:55)
[2017-04-08] MEDS: DIGOXIN 125 MCG TABLET PO SCH (08:55)
[2017-04-08] MEDS: CYANOCOBALAMIN (B-12) 500mcg TABLET PO SCH (08:58)
[2017-04-08] MEDS: POLYETHYL GLYCOL 3350 17gm PACKET PO SCH (08:58)
--- NOTE | 2017-04-08 09:35 | Pharmacy Consult ---
Pharmacy Consult-Warfarin - Laboratory Information 03/21/17 03/22/17 03/23/17 07:01 04:56 06:31 INR 1.85 H 1.85 H 1.97 H 03/24/17 03/25/17 03/26/17 06:45 05:11 08:25 INR 2.33 H 2.85 H 2.75 H 03/27/17 03/29/17 04/01/17 07:12 07:00 06:40 INR 2.74 H 2.39 H 2.24 H 04/04/17 04/08/17 06:54 08:34 INR 2.63 H 2.17 H - Consult Information COUMADIN CONSULT (Recurring): PT IS ON HER HOME MED DOSE OF WARFARIN 3 MG DAILY. SHE JUST FINISHED A 7 DAYS OF CEPHALEXIN FOR A UTI. THE ANTIBIOTIC HAS BEEN CHANGED TO DOXYCYCLINE 100 MG PO BID. HER INR TODAY IS 2.17. CONTINUE WARFARIN 3 MG DAILY. NOTE MADE IN "DOCUMENT" IN EMR THANK YOU FOR THE WARFARIN CONSULT. ABEL AGUILERA, SHAUND
[2017-04-08] MEDS: WARFARIN 3 MG TABLET PO SCH (12:36)
[2017-04-08] MEDS: RisperiDONE ODT 0.5 MG TABLET PO SCH ×2 (13:17→20:05)
--- NOTE | 2017-04-08 14:53 | Neuropsych Progress Note ---
[facility] Subjective Date: 04/08/17 - Sujective/Severity of Illness Medications: Acetaminophen (Tylenol) 325 - 650 mg PO Q5H PRN PRN Reason: Discomfort Last Admin: 04/07/17 20:18 Dose: 650 mg Al Hydroxide/Mg Hydroxide (Maalox Plus) 30 ml PO Q6H PRN PRN Reason: Indigestion Last Admin: 04/05/17 17:51 Dose: 30 ml Bisacodyl (Dulcolax) 10 mg RECTALLY DAILY PRN PRN Reason: Constipation Bisacodyl (Dulcolax) 10 mg PO DAILY PRN PRN Reason: Constipation Last Admin: 04/07/17 11:36 Dose: 10 mg Clonazepam (Klonopin) 0.5 mg PO BID [facility] Last Admin: 04/08/17 08:54 Dose: 0.5 mg Cyanocobalamin (Vit. B-12) 500 mcg PO DAILY [facility] Last Admin: 04/08/17 08:58 Dose: 500 mcg Digoxin (Lanoxin) 125 mcg PO Q2D [facility] Last Admin: 04/08/17 08:55 Dose: 125 mcg Diltiazem HCl (Cardizem Cd) 120 mg PO DAILY [facility] Last Admin: 04/08/17 08:58 Dose: 120 mg Divalproex Sodium (Depakote) 125 mg PO BID [facility] Last Admin: 04/08/17 08:54 Dose: 125 mg Doxycycline Hyclate (Vibramycin) 100 mg PO BIDWM [facility] Stop: 04/15/17 23:55 Haloperidol (Haldol) 0.5 mg PO Q6H PRN PRN Reason: Extreme agitation Last Admin: 04/06/17 17:03 Dose: 0.5 mg Haloperidol Decanoate (Haldol Liquid) 0.5 mg PO Q6H PRN Last Admin: 04/06/17 22:55 Dose: 0.5 mg Haloperidol Lactate (Haldol) 0.5 mg IM Q6H PRN PRN Reason: Extreme agitation Hyoscyamine (Levsin) 0.125 mg SL Q6HR PRN PRN Reason: Gastrointestinal upset Lorazepam (Ativan Intensol) 0.5 mg PO Q6HR PRN Last Admin: 04/07/17 22:24 Dose: 0.5 mg Lorazepam (Ativan) 1 mg PO O PRN PRN Reason: Agitation Lorazepam (Ativan) 0.5 mg PO Q6H PRN PRN Reason: Extreme agitation Last Admin: 04/06/17 17:03 Dose: 0.5 mg Lorazepam (Ativan Inj) 0.5 mg IM Q6H PRN PRN Reason: Extreme agitation Memantine (Namenda) 10 mg PO [facility] Last Admin: 04/07/17 20:16 Dose: 10 mg Mirtazapine (Remeron Solu-Tab) 30 mg PO [facility] Last Admin: 04/07/17 20:16 Dose: 30 mg Omeprazole (Prilosec) 20 mg PO ACB [facility] Last Admin: 04/08/17 08:55 Dose: 20 mg Phenazopyridine HCl (Pyridium Eq) 95 mg PO PC [facility] Stop: 04/09/17 19:00 Last Admin: 04/08/17 12:35 Dose: 95 mg Polyethylene Glycol (Miralax) 17 gm PO DAILY [facility] Last Admin: 04/08/17 08:58 Dose: Not Given Risperidone (Risperdal M) 0.5 mg PO 14 [facility] Last Admin: 04/08/17 13:17 Dose: 0.5 mg Risperidone (Risperdal M) 1 mg PO [facility] Last Admin: 04/07/17 20:18 Dose: 1 mg Warfarin Sodium (Coumadin Protocol) 0 MC NOTE [facility] Warfarin Sodium (Coumadin) 3 mg PO NOON [facility] Last Admin: 04/08/17 12:36 Dose: 3 mg Subjective: PT seen and chart examined. Nursing reports pt can be agitated and anxious at times primarily more in the evenings. On face to face the pt is pleasant but confused. She reports her mood is stable. When asked about "worries" pt denies any at this time. She denies pain and voices no concerns at this time. Tolerating meds Start Time: 11:45 Stop Time: 12:00 Mental Status Exam Vitals: Last Vital Signs Temp 97.4 F 04/08/17 08:00 Pulse 96 04/08/17 08:55 Resp 16 04/08/17 08:00 BP 111/56 04/08/17 08:00 Pulse Ox 98 04/08/17 08:00 Height: 1.52 m Weight: 40.8 kg - Mental Status Exam Muscle Strength/Tone: Normal Dressing: Casual Grooming: Good Attitude: Cooperative Motor Activity: Normal (paces at times, not during interview) Eye Contact: Fair Speech: Other Volume: Soft Rhythm: Appropriate Rhythm Orientation: Oriented to person Mood: Euthymic Rate of Thoughts: Delayed Thought Organization: [place], Confused Associations: Flight of Ideas, Illogical Abstract Reasoning: Poor abstract reasoning Thought Content: Other (no insight into hospitalization, has good sense of humor ) Perception/Psychotic: Hx psychosis, not current Language: Naming Impaired Fund of Knowledge: Poor fund of knowledge Memory: Poor-immediate, Poor-recent Suicidal Ideation: Denies Homicidal Ideation: Denies Insight: Impaired Judgement: Impaired Impulse Control: Poor (improved) - Laboratory Result Diagrams: 04/07/17 13:45 04/07/17 13:58 Laboratory Results - last 24 hr 04/07/17 04/07/17 04/08/17 15:14 17:10 08:34 INR 2.17 H Plasma Lactate 1.4 Ur Collection Type Urine, clean catch Urine Color Yellow Urine Clarity Clear Urine pH 6.0 Ur Specific [place] 1.020 Urine Protein Negative Urine Glucose (UA) Negative Urine Ketones Trace A Urine Occult Blood Trace-intact Urine Nitrate Negative Urine Bilirubin Negative Urine Urobilinogen 0.2 Ur Leukocyte Esterase 2+ A Urine RBC 3-5 H Urine WBC 5-10 H Ur Squamous Epith Cells 20-50 Amorphous Sediment Few Urine Bacteria Trace H Granular Casts 0-1 Ur Culture Indicated? Cult not indicated Assessment and Plan (1) Major neurocognitive disorder Problem details: with behavioral disturbance. Alzheimer's versus Vascular Current visit: Yes Status: Acute Hospital Course Summary Disclaimer: The visit summary below is not to be considered part of the above Progress Note. Hospital Course: 03/19/17 16:13 IMPRESSION Neurocognitive disorder with behavioral changes Normocytic anemia Dementia Anxiety & Depression A-fib - on Coumadin HTN MVP OA Asthma GERD Slow transit constipation PLAN Agree with admission. Still need to check EKG, CT head. Routine labs are also pending. Check dig level and INR. Consult pharmacy for Coumadin management. VS stable though HR has been mildly elevated - hx of A-fib, may need to investigate options for rate control. Normocytic anemia - check B12 level. Cachetic - check prealbumin level. Provide safe, supportive environment. 03/21/17 21:30 Remains confused. Will get collateral from family and discuss med options 03/22/17 IMPRESSION Neurocognitive disorder with behavioral changes Normocytic anemia Mild PCM Dementia Anxiety & Depression A-fib - on Coumadin HTN MVP OA Asthma GERD Slow transit constipation PLAN Digoxin level was normal at 0.8 though give her age and low BMI this may be on the high end for her - digoxin frequency was therefore decreased to every-other- day. HR was >100 on admission but since then has been in the 80s-90s - BP has been acceptable; could consider increasing cardizem if rate increases with reduction of dig. INR 1.85 - pharmacy managing. Prealbumin low at 13.5 - start nutritional supplements. Vit B12 was low end of normal - start supplementation. 03/22/17 17:16 Remains paranoid at times. Will discuss with family use of low dose antipsychotic 03/23/17 Psych: Agree with above plan - have attempted to contact DPOA on multiple occasions to obtain informed consent 03/24/17 Psych: Continue with PRN antipsychotics until able to obtain consent from DPOA - reportedly responds well to Haldol. If not regularly available by phone, alternate DPOA would be beneficial for best care of patient. 03/25/17 HR still controlled since digoxin frequency was reduced to every-other day. INR therapeutic - pharmacy managing Coumadin dosing. Dr. Aceves's notes reviewed - seeking permission from DPOA to start an antipsychotic. 03/25/17: Will schedule Zyprexa 2.5mg PO at dinnertime. Monitor mood, behavior and response to treatment. 03/26/17 12:50 Remains agitated at times. increase Zyprexa to 5mg at dinner time 03/27/17 11:16 No behaviors today. Remains confused. Continue current care 03/28/17 Psych: Increase Zyprexa to 7.5mg PO at dinnertime as still has intermittent agitation requiring multiple PRNs in past 24 hours. PLAN-03/29/17: Overall, Winsome is doing well. She continues to have episodes of increased anxiety, especially at night with owners and continues to require occasional PRN medications. Continue psychiatric care per Dr. Aceves and team. Continue to provide safe and supportive environment. Zyprexa 7.5mg added at bedtime per Dr. Aceves in light of persistent agitation in evenings. Cardiac exam reveals persistent irregularly irregular rate and rhythm but rate remains controlled. Continue digoxin every other day and continue to monitor closely. Blood pressure remains stable and patient remains afebrile. INR subtheraputic at 2.37 with pharmacy to manage. Appreciate pharmacy's assistance. Will recheck CBC and BMP in AM in light of recent medication changes to monitor blood counts, electrolytes and renal function. 03/29/17 Psych: Increased Zyprexa just last night - continue to monitor response as it appears patient is responding well to this med and dose so far. 03/30/17 Psych: Continue current care - will discuss means of addressing episodes of anxiety other ways as would like to limit further increase in Zyprexa if possible. Plan - 04/01/17: Overall, Winsome is doing well. Continue psychiatric care per Dr. Aceves and team. Continue to provide safe and supportive environment. Nursing expressed concern about possible UTI given change in behaviors including urinary frequency. UA was obtained and revealed 5-10 WBC with 4+ bacteria and positive nitrite. Culture pending. Keflex 500mg QID initiated x 7 days and will be adjusted pending sensitivities results if warranted. Continue to monitor closely for fever, vomiting, change or worsening. Currently afebrile. Vital signs remain stable. Will recheck CBC and BMP on 04/04 to monitor blood counts, electrolytes and renal function. 04/01/17 Psych: Continue current care - UA ordered and resulted as above, being treated by hospitalist. Continue current psych meds in interim and predict agitation, confusion will again decrease as UTI is treated. 04/02/17 14:29 Some agitation at times. Continue current care 04/03/17 11:14 Remains paranoid and agitated at times. Continue current care 04/04/17 19:21 Remains agitated at times and anxious. Will start Depakote 125mg PO BID 04/05/17 Psych: Patient has continued to upregulate, requiring PRNs most recent days. Will discontinue Zyprexa, switch to Risperdal 0.5mg PO BID (at 1400, HS) and continue low-dose Depakote as above. Monitor mood, behavior and response to treatment. Suspect will need to increase dose of Risperdal at HS but will monitor. 04/06/17 Psych: Continue current care as just switched antipsychotics; monitor response. 04/07/17 Psych: Increase Risperdal to 0.5mg at 1400 and 1mg at HS, will switch to Risperdal M-tab and mirtazapine solu-tab. Asked nursing to separate patient from other peer in question. 04/08/17 14:53 Pt remains anxious but doing a little better Continue current care
[2017-04-08] MEDS: MEMANTINE 10 MG TABLET PO SCH (20:04)
[2017-04-08] MEDS: SOLU PO SCH (20:04)
[2017-04-08] MEDS: MIRTAZAPINE 30 MG PO SCH (20:04)
[2017-04-08] MEDS: Hyoscyamine 0.125 MG SL tab SL PRN (20:04)
[2017-04-09] MEDS: Hyoscyamine 0.125 MG SL tab SL PRN ×2 (07:21→13:24)
[2017-04-09] MEDS: OMEPRAZOLE 20 MG CAPSULE PO SCH (07:21)
[2017-04-09] MEDS: PHENAZOPYRIDINE 95 MG TABLET PO SCH ×3 (08:56→17:30)
[2017-04-09] MEDS: DIVALPROEX 125 MG TABLET PO SCH ×2 (08:56→20:42)
[2017-04-09] MEDS: CYANOCOBALAMIN (B-12) 500mcg TABLET PO SCH (08:56)
[2017-04-09] MEDS: ClonazePAM 0.5 MG TABLET PO SCH ×2 (08:56→20:43)
--- NOTE | 2017-04-09 10:44 | Neuropsych Progress Note ---
[facility] Subjective Date: 04/09/17 - Sujective/Severity of Illness Medications: Acetaminophen (Tylenol) 325 - 650 mg PO Q5H PRN PRN Reason: Discomfort Last Admin: 04/07/17 20:18 Dose: 650 mg Al Hydroxide/Mg Hydroxide (Maalox Plus) 30 ml PO Q6H PRN PRN Reason: Indigestion Last Admin: 04/05/17 17:51 Dose: 30 ml Bisacodyl (Dulcolax) 10 mg RECTALLY DAILY PRN PRN Reason: Constipation Bisacodyl (Dulcolax) 10 mg PO DAILY PRN PRN Reason: Constipation Last Admin: 04/07/17 11:36 Dose: 10 mg Clonazepam (Klonopin) 0.5 mg PO BID [facility] Last Admin: 04/09/17 08:56 Dose: 0.5 mg Cyanocobalamin (Vit. B-12) 500 mcg PO DAILY [facility] Last Admin: 04/09/17 08:56 Dose: 500 mcg Digoxin (Lanoxin) 125 mcg PO Q2D [facility] Last Admin: 04/08/17 08:55 Dose: 125 mcg Diltiazem HCl (Cardizem Cd) 120 mg PO DAILY [facility] Last Admin: 04/09/17 08:56 Dose: 120 mg Divalproex Sodium (Depakote) 125 mg PO BID [facility] Last Admin: 04/09/17 08:56 Dose: 125 mg Doxycycline Hyclate (Vibramycin) 100 mg PO BIDWM [facility] Stop: 04/15/17 23:55 Last Admin: 04/09/17 08:56 Dose: 100 mg Haloperidol (Haldol) 0.5 mg PO Q6H PRN PRN Reason: Extreme agitation Last Admin: 04/06/17 17:03 Dose: 0.5 mg Haloperidol Decanoate (Haldol Liquid) 0.5 mg PO Q6H PRN Last Admin: 04/06/17 22:55 Dose: 0.5 mg Haloperidol Lactate (Haldol) 0.5 mg IM Q6H PRN PRN Reason: Extreme agitation Hyoscyamine (Levsin) 0.125 mg SL Q6HR PRN PRN Reason: Gastrointestinal upset Last Admin: 04/09/17 07:21 Dose: 0.125 mg Lorazepam (Ativan Intensol) 0.5 mg PO Q6HR PRN Last Admin: 04/07/17 22:24 Dose: 0.5 mg Lorazepam (Ativan) 1 mg PO O PRN PRN Reason: Agitation Lorazepam (Ativan) 0.5 mg PO Q6H PRN PRN Reason: Extreme agitation Last Admin: 04/06/17 17:03 Dose: 0.5 mg Lorazepam (Ativan Inj) 0.5 mg IM Q6H PRN PRN Reason: Extreme agitation Memantine (Namenda) 10 mg PO HS [facility] Last Admin: 04/08/17 20:04 Dose: 10 mg Mirtazapine (Remeron Solu-Tab) 30 mg PO HS [facility] Last Admin: 04/08/17 20:04 Dose: 30 mg Omeprazole (Prilosec) 20 mg PO ACB [facility] Last Admin: 04/09/17 07:21 Dose: 20 mg Phenazopyridine HCl (Pyridium Eq) 95 mg PO PC [facility] Stop: 04/09/17 19:00 Last Admin: 04/09/17 08:56 Dose: 95 mg Polyethylene Glycol (Miralax) 17 gm PO DAILY [facility] Last Admin: 04/08/17 08:58 Dose: Not Given Risperidone (Risperdal M) 0.5 mg PO 14 [facility] Last Admin: 04/08/17 13:17 Dose: 0.5 mg Risperidone (Risperdal M) 1 mg PO HS [facility] Last Admin: 04/08/17 20:05 Dose: 1 mg Warfarin Sodium (Coumadin Protocol) 0 MC NOTE [facility] Warfarin Sodium (Coumadin) 3 mg PO NOON [facility] Last Admin: 04/08/17 12:36 Dose: 3 mg Subjective: PT seen and chart examined. Nursing reports pt remains irritable and anxious at times but no behaviors noted. On face to face the pt is pleasant. She is only oriented to self. She denies any pain. Tolerating meds Start Time: 10:30 Stop Time: 10:45 Mental Status Exam Vitals: Last Vital Signs Temp 96.8 F 04/09/17 08:00 Pulse 96 04/09/17 08:00 Resp 16 04/09/17 08:00 BP 124/76 04/09/17 08:00 Pulse Ox 96 04/09/17 08:00 Height: 1.52 m Weight: 40.8 kg - Mental Status Exam Muscle Strength/Tone: Normal Dressing: Casual Grooming: Good Attitude: Cooperative Motor Activity: Normal (paces at times, not during interview) Eye Contact: Fair Speech: Other Volume: Soft Rhythm: Appropriate Rhythm Orientation: Oriented to person Mood: Euthymic Rate of Thoughts: Delayed Thought Organization: [place], Confused Associations: Flight of Ideas, Illogical Abstract Reasoning: Poor abstract reasoning Thought Content: Other (no insight into hospitalization, has good sense of humor ) Perception/Psychotic: Hx psychosis, not current Language: Naming Impaired Fund of Knowledge: Poor fund of knowledge Memory: Poor-immediate, Poor-recent Suicidal Ideation: Denies Homicidal Ideation: Denies Insight: Impaired Judgement: Impaired Impulse Control: Poor (improved) - Laboratory Result Diagrams: 04/07/17 13:45 04/07/17 13:58 Assessment and Plan (1) Major neurocognitive disorder Problem details: with behavioral disturbance. Alzheimer's versus Vascular Current visit: Yes Status: Acute Hospital Course Summary Disclaimer: The visit summary below is not to be considered part of the above Progress Note. Hospital Course: 03/19/17 16:13 IMPRESSION Neurocognitive disorder with behavioral changes Normocytic anemia Dementia Anxiety & Depression A-fib - on Coumadin HTN MVP OA Asthma GERD Slow transit constipation PLAN Agree with admission. Still need to check EKG, CT head. Routine labs are also pending. Check dig level and INR. Consult pharmacy for Coumadin management. VS stable though HR has been mildly elevated - hx of A-fib, may need to investigate options for rate control. Normocytic anemia - check B12 level. Cachetic - check prealbumin level. Provide safe, supportive environment. 03/21/17 21:30 Remains confused. Will get collateral from family and discuss med options 03/22/17 IMPRESSION Neurocognitive disorder with behavioral changes Normocytic anemia Mild PCM Dementia Anxiety & Depression A-fib - on Coumadin HTN MVP OA Asthma GERD Slow transit constipation PLAN Digoxin level was normal at 0.8 though give her age and low BMI this may be on the high end for her - digoxin frequency was therefore decreased to every-other- day. HR was >100 on admission but since then has been in the 80s-90s - BP has been acceptable; could consider increasing cardizem if rate increases with reduction of dig. INR 1.85 - pharmacy managing. Prealbumin low at 13.5 - start nutritional supplements. Vit B12 was low end of normal - start supplementation. 03/22/17 17:16 Remains paranoid at times. Will discuss with family use of low dose antipsychotic 03/23/17 Psych: Agree with above plan - have attempted to contact DPOA on multiple occasions to obtain informed consent 03/24/17 Psych: Continue with PRN antipsychotics until able to obtain consent from DPOA - reportedly responds well to Haldol. If not regularly available by phone, alternate DPOA would be beneficial for best care of patient. 03/25/17 HR still controlled since digoxin frequency was reduced to every-other day. INR therapeutic - pharmacy managing Coumadin dosing. Dr. Aceves's notes reviewed - seeking permission from DPOA to start an antipsychotic. 03/25/17: Will schedule Zyprexa 2.5mg PO at dinnertime. Monitor mood, behavior and response to treatment. 03/26/17 12:50 Remains agitated at times. increase Zyprexa to 5mg at dinner time 03/27/17 11:16 No behaviors today. Remains confused. Continue current care 03/28/17 Psych: Increase Zyprexa to 7.5mg PO at dinnertime as still has intermittent agitation requiring multiple PRNs in past 24 hours. PLAN-03/29/17: Overall, Winsome is doing well. She continues to have episodes of increased anxiety, especially at night with own and continues to require occasional PRN medications. Continue psychiatric care per Dr. Aceves and team. Continue to provide safe and supportive environment. Zyprexa 7.5mg added at bedtime per Dr. Aceves in light of persistent agitation in evenings. Cardiac exam reveals persistent irregularly irregular rate and rhythm but rate remains controlled. Continue digoxin every other day and continue to monitor closely. Blood pressure remains stable and patient remains afebrile. INR subtheraputic at 2.37 with pharmacy to manage. Appreciate pharmacy's assistance. Will recheck CBC and BMP in AM in light of recent medication changes to monitor blood counts, electrolytes and renal function. 03/29/17 Psych: Increased Zyprexa just last night - continue to monitor response as it appears patient is responding well to this med and dose so far. 03/30/17 Psych: Continue current care - will discuss means of addressing episodes of anxiety other ways as would like to limit further increase in Zyprexa if possible. Plan - 04/01/17: Overall, Winsome is doing well. Continue psychiatric care per Dr. Aceves and team. Continue to provide safe and supportive environment. Nursing expressed concern about possible UTI given change in behaviors including urinary frequency. UA was obtained and revealed 5-10 WBC with 4+ bacteria and positive nitrite. Culture pending. Keflex 500mg QID initiated x 7 days and will be adjusted pending sensitivities results if warranted. Continue to monitor closely for fever, vomiting, change or worsening. Currently afebrile. Vital signs remain stable. Will recheck CBC and BMP on 04/04 to monitor blood counts, electrolytes and renal function. 04/01/17 Psych: Continue current care - UA ordered and resulted as above, being treated by hospitalist. Continue current psych meds in interim and predict agitation, confusion will again decrease as UTI is treated. 04/02/17 14:29 Some agitation at times. Continue current care 04/03/17 11:14 Remains paranoid and agitated at times. Continue current care 04/04/17 19:21 Remains agitated at times and anxious. Will start Depakote 125mg PO BID 04/05/17 Psych: Patient has continued to upregulate, requiring PRNs most recent days. Will discontinue Zyprexa, switch to Risperdal 0.5mg PO BID (at 1400, HS) and continue low-dose Depakote as above. Monitor mood, behavior and response to treatment. Suspect will need to increase dose of Risperdal at HS but will monitor. 04/06/17 Psych: Continue current care as just switched antipsychotics; monitor response. 04/07/17 Psych: Increase Risperdal to 0.5mg at 1400 and 1mg at HS, will switch to Risperdal M-tab and mirtazapine solu-tab. Asked nursing to separate patient from other peer in question. 04/08/17 14:53 Pt remains anxious but doing a little better Continue current care 04/09/17 10:44 Anxious at times but improved. Continue current care
[2017-04-09] MEDS: POLYETHYL GLYCOL 3350 17gm PACKET PO SCH (11:11)
[2017-04-09] MEDS: WARFARIN 3 MG TABLET PO SCH (12:04)
[2017-04-09] MEDS: RisperiDONE ODT 0.5 MG TABLET PO SCH ×2 (13:25→20:42)
[2017-04-09] MEDS: LORazepam 0.5 MG TABLET PO PRN (17:33)
[2017-04-09] MEDS: SOLU PO SCH (20:42)
[2017-04-09] MEDS: MIRTAZAPINE 30 MG PO SCH (20:42)
[2017-04-09] MEDS: MEMANTINE 10 MG TABLET PO SCH (20:43)
--- NOTE | 2017-04-10 08:14 | Pharmacy Consult ---
Pharmacy Consult-Warfarin - Laboratory Information 03/21/17 03/22/17 03/23/17 07:01 04:56 06:31 INR 1.85 H 1.85 H 1.97 H 03/24/17 03/25/17 03/26/17 06:45 05:11 08:25 INR 2.33 H 2.85 H 2.75 H 03/27/17 03/29/17 04/01/17 07:12 07:00 06:40 INR 2.74 H 2.39 H 2.24 H 04/04/17 04/08/17 06:54 08:34 INR 2.63 H 2.17 H - Consult Information 81 y.o. F with history of a. fib and chronic anticoagulation with warfarin. Patient home dose is Warfarin 3 mg po daily. goal INR range= 2.0 to 3.0. INR is in therapeutic range. Continue Home dose of Warfarin 3 mg po daily with INR on Tuesday, Tuesday and Tuesday. Doxycycline therapy does not seem to be affecting patient's INR. Pharmacy will continue to monitor and adjust as needed. Thank you for the Warfarin protocol, Justine Arredondo RPh
--- NOTE | 2017-04-10 09:40 | Progress Note ---
- Date 04/10/17 Subjective: Winsome is seen today in follow up for her dementia with recent behaviors. She is seen while resting in her room and arouses easily with soft voice and touch stimuli. She denies any complaints including no chest pain, shortness of breath , abdominal pain, nausea, vomiting or dysuria. She quickly falls back to sleep for the remained of the exam. Patient care discussed with nursing who reported patient is doing well and anticipate discharge in the near future, hopefully or 04/12. She had some recent suprapubic discomfort and dysuria but remained afebrile. She was found to have a UTI on admission which grew out coag negative staph and was started on Keflex 04/01. Due to increased symptoms , she was changed to doxycycline on 04/08 based on prior urine sensitivity. At the time of her symptoms, blood cultures were obtained and remain negative after 2 days. Initial lactate was 1.5 and decreased to 1.4. Procalcitonin was negative at <0.05. Repeat UA revealed 5-10 WBC with trace bacteria. INR 2.17 today with a goal between 2.0-3.0. Her appetite has been stable and her bowels are moving. Objective Vital signs: Temperature 98.5 F 04/09/17 19:37 Pulse Rate 84 04/09/17 19:37 Respiratory Rate 16 04/09/17 19:37 Blood Pressure 109/53 04/09/17 19:37 Pulse Oximetry 97 04/09/17 19:37 Height/Weight/BMI: Height 5 ft Weight 89 lb 15.178 oz Body Mass Index 16.5 - Constitutional Present: no acute distress, well nourished, well developed, thin, cooperative Comments: sleeping, arouses easily with soft voice/touch stimuli but quickly falls back to sleep. - Routine HEENT Exam Head: Present: normocephalic, atraumatic ENT: Present: mucous membranes moist - Routine Respiratory Exam Present: CTA bilaterally. Absent: rales, respiratory distress, rhonchi, stridor , wheezes - Routine Cardiovascular Exam Present: S1, S2, irregularly irregular - Routine Abdominal Exam Present: soft, normoactive bowel sounds, non distended - Routine Extremities Exam Present: no edema, full ROM, pulses intact. Absent: calf tenderness - Routine Back/Spine/Pelvis Exam Back/Spine: Present: full ROM. Absent: vertebral tenderness - Routine Musculoskeletal Exam Musculoskeletal: Present: no clubbing or cyanosis - Routine Skin Exam Present: intact, dry, warm. Absent: jaundice Comments: afebrile - Routine Neurological Exam Present: normal speech limited exam due to patient sleeping. - Routine Lymphatic Exam Lymphatic: Absent: lymphedema - Routine Psychiatric Exam Present: cooperative Results - Labs CBC & Chem 7: 04/07/17 13:45 04/07/17 13:58 Microbiology Results: Microbiology 04/07/17 13:58 Peripheral/Iv Start Blood Culture - Preliminary No Growth After 2 Days 04/07/17 13:45 Peripheral/Iv Start Blood Culture - Preliminary No Growth After 2 Days 04/08/17 12:34 Urine, Voided (Cc/notcc) Urine Culture - Preliminary No Growth After 1 Day 04/01/17 13:10 Urine, Voided (Cc/notcc) Urine Culture - Final Coag negative Staphylococcus Assessment and Plan (1) Neurocognitive disorder Current visit: Yes Status: Acute Assessment and Plan: Assessment Neurocognitive disorder with behavioral changes Normocytic anemia Dementia Anxiety & Depression A-fib - on Coumadin. HTN MVP OA Asthma GERD Slow transit constipation Plan - 04/10/17 (Mirakian) Overall, Winsome is doing well and anticipate discharge in the near future, hopefully 04/11 or 04/12. She continues to have some irritability and anxiety at times but improving. Continue psychiatric care per psychiatric team. Continue to provide safe and supportive environment. Suprapubic tenderness and dysuria on 04/07. Repeat UA revealed 5-10 WBC and trace bacteria. Initial UA on 04/01 revealed coag negative staph and she was started on Keflex. Treatment was changed to doxycycline on 04/08/17 based on initial urine culture sensitivities and to be continued until 04/15/17. Labs on 04/07 were unremarkable. Blood cultures remain negative after 2 days. Lactate initially 1.5 and decreased to 1.4. Procalcitonin <0.015 and he remains afebrile. Continue to monitor closely for symptoms and fever. INR therapeutic at 2.17. Pharmacy to continue to manage. Continue plan of care. GI Prophylaxis: other (Prilosec) Resuscitation Status: Full Code - Time spent with patient Time with patient PN: 25 minutes Hospital Course Summary Disclaimer: The visit summary below is not to be considered part of the above Progress Note. Hospital Course: 03/19/17 16:13 IMPRESSION Neurocognitive disorder with behavioral changes Normocytic anemia Dementia Anxiety & Depression A-fib - on Coumadin HTN MVP OA Asthma GERD Slow transit constipation PLAN Agree with admission. Still need to check EKG, CT head. Routine labs are also pending. Check dig level and INR. Consult pharmacy for Coumadin management. VS stable though HR has been mildly elevated - hx of A-fib, may need to investigate options for rate control. Normocytic anemia - check B12 level. Cachetic - check prealbumin level. Provide safe, supportive environment. 03/21/17 21:30 Remains confused. Will get collateral from family and discuss med options 03/22/17 IMPRESSION Neurocognitive disorder with behavioral changes Normocytic anemia Mild PCM Dementia Anxiety & Depression A-fib - on Coumadin HTN MVP OA Asthma GERD Slow transit constipation PLAN Digoxin level was normal at 0.8 though give her age and low BMI this may be on the high end for her - digoxin frequency was therefore decreased to every-other- day. HR was >100 on admission but since then has been in the 80s-90s - BP has been acceptable; could consider increasing cardizem if rate increases with reduction of dig. INR 1.85 - pharmacy managing. Prealbumin low at 13.5 - start nutritional supplements. Vit B12 was low end of normal - start supplementation. 03/22/17 17:16 Remains paranoid at times. Will discuss with family use of low dose antipsychotic 03/23/17 Psych: Agree with above plan - have attempted to contact DPOA on multiple occasions to obtain informed consent 03/24/17 Psych: Continue with PRN antipsychotics until able to obtain consent from DPOA - reportedly responds well to Haldol. If not regularly available by phone, alternate DPOA would be beneficial for best care of patient. 03/25/17 HR still controlled since digoxin frequency was reduced to every-other day. INR therapeutic - pharmacy managing Coumadin dosing. Dr. Aceves's notes reviewed - seeking permission from DPOA to start an antipsychotic. 03/25/17: Will schedule Zyprexa 2.5mg PO at dinnertime. Monitor mood, behavior and response to treatment. 03/26/17 12:50 Remains agitated at times. increase Zyprexa to 5mg at dinner time 03/27/17 11:16 No behaviors today. Remains confused. Continue current care 03/28/17 Psych: Increase Zyprexa to 7.5mg PO at dinnertime as still has intermittent agitation requiring multiple PRNs in past 24 hours. PLAN-03/29/17: Overall, Winsome is doing well. She continues to have episodes of increased anxiety, especially at night with owners and continues to require occasional PRN medications. Continue psychiatric care per Dr. Aceves and team. Continue to provide safe and supportive environment. Zyprexa 7.5mg added at bedtime per Dr. Aceves in light of persistent agitation in evenings. Cardiac exam reveals persistent irregularly irregular rate and rhythm but rate remains controlled. Continue digoxin every other day and continue to monitor closely. Blood pressure remains stable and patient remains afebrile. INR subtheraputic at 2.37 with pharmacy to manage. Appreciate pharmacy's assistance. Will recheck CBC and BMP in AM in light of recent medication changes to monitor blood counts, electrolytes and renal function. 03/29/17 Psych: Increased Zyprexa just last night - continue to monitor response as it appears patient is responding well to this med and dose so far. 03/30/17 Psych: Continue current care - will discuss means of addressing episodes of anxiety other ways as would like to limit further increase in Zyprexa if possible. Plan - 04/01/17: Overall, Winsome is doing well. Continue psychiatric care per Dr. Aceves and team. Continue to provide safe and supportive environment. Nursing expressed concern about possible UTI given change in behaviors including urinary frequency. UA was obtained and revealed 5-10 WBC with 4+ bacteria and positive nitrite. Culture pending. Keflex 500mg QID initiated x 7 days and will be adjusted pending sensitivities results if warranted. Continue to monitor closely for fever, vomiting, change or worsening. Currently afebrile. Vital signs remain stable. Will recheck CBC and BMP on 04/04 to monitor blood counts, electrolytes and renal function. 04/01/17 Psych: Continue current care - UA ordered and resulted as above, being treated by hospitalist. Continue current psych meds in interim and predict agitation, confusion will again decrease as UTI is treated. 04/02/17 14:29 Some agitation at times. Continue current care 04/03/17 11:14 Remains paranoid and agitated at times. Continue current care 04/04/17 19:21 Remains agitated at times and anxious. Will start Depakote 125mg PO BID 04/05/17 Psych: Patient has continued to upregulate, requiring PRNs most recent days. Will discontinue Zyprexa, switch to Risperdal 0.5mg PO BID (at 1400, HS) and continue low-dose Depakote as above. Monitor mood, behavior and response to treatment. Suspect will need to increase dose of Risperdal at HS but will monitor. 04/06/17 Psych: Continue current care as just switched antipsychotics; monitor response. 04/07/17 Psych: Increase Risperdal to 0.5mg at 1400 and 1mg at HS, will switch to Risperdal M-tab and mirtazapine solu-tab. Asked nursing to separate patient from other peer in question. 04/08/17 14:53 Pt remains anxious but doing a little better Continue current care 04/09/17 10:44 Anxious at times but improved. Continue current care Plan - 04/10/17 (Mirakian) Overall, Winsome is doing well and anticipate discharge in the near future, hopefully 04/11 or 04/12. She continues to have some irritability and anxiety at times but improving. Continue psychiatric care per psychiatric team. Continue to provide safe and supportive environment. Suprapubic tenderness and dysuria on 04/07. Repeat UA revealed 5-10 WBC and trace bacteria. Initial UA on 04/01 revealed coag negative staph and she was started on Keflex. Treatment was changed to doxycycline on 04/08/17 based on initial urine culture sensitivities and to be continued until 04/15/17. Labs on 04/07 were unremarkable. Blood cultures remain negative after 2 days. Lactate initially 1.5 and decreased to 1.4. Procalcitonin <0.015 and he remains afebrile. Continue to monitor closely for symptoms and fever. INR therapeutic at 2.17. Pharmacy to continue to manage. Continue plan of care.
[2017-04-10] MEDS: ClonazePAM 0.5 MG TABLET PO SCH ×2 (10:26→20:14)
[2017-04-10] MEDS: CYANOCOBALAMIN (B-12) 500mcg TABLET PO SCH (10:26)
[2017-04-10] MEDS: OMEPRAZOLE 20 MG CAPSULE PO SCH (10:26)
[2017-04-10] MEDS: DIGOXIN 125 MCG TABLET PO SCH (10:27)
[2017-04-10] MEDS: DIVALPROEX 125 MG TABLET PO SCH ×2 (10:29→20:14)
[2017-04-10] MEDS: POLYETHYL GLYCOL 3350 17gm PACKET PO SCH (10:29)
--- NOTE | 2017-04-10 11:22 | Neuropsych Progress Note ---
[facility] Subjective Date: 04/10/17 - Sujective/Severity of Illness Medications: Acetaminophen (Tylenol) 325 - 650 mg PO Q5H PRN PRN Reason: Discomfort Last Admin: 04/07/17 20:18 Dose: 650 mg Al Hydroxide/Mg Hydroxide (Maalox Plus) 30 ml PO Q6H PRN PRN Reason: Indigestion Last Admin: 04/05/17 17:51 Dose: 30 ml Bisacodyl (Dulcolax) 10 mg RECTALLY DAILY PRN PRN Reason: Constipation Bisacodyl (Dulcolax) 10 mg PO DAILY PRN PRN Reason: Constipation Last Admin: 04/07/17 11:36 Dose: 10 mg Clonazepam (Klonopin) 0.5 mg PO BID ON LICENSE OF [facility] Last Admin: 04/10/17 10:26 Dose: 0.5 mg Cyanocobalamin (Vit. B-12) 500 mcg PO DAILY ON LICENSE OF [facility] Last Admin: 04/10/17 10:26 Dose: 500 mcg Digoxin (Lanoxin) 125 mcg PO Q2D ON LICENSE OF [facility] Last Admin: 04/10/17 10:27 Dose: 125 mcg Diltiazem HCl (Cardizem Cd) 120 mg PO DAILY ON LICENSE OF [facility] Last Admin: 04/10/17 10:27 Dose: 120 mg Divalproex Sodium (Depakote) 125 mg PO BID ON LICENSE OF [facility] Last Admin: 04/10/17 10:29 Dose: 125 mg Doxycycline Hyclate (Vibramycin) 100 mg PO BIDWM ON LICENSE OF [facility] Stop: 04/15/17 23:55 Last Admin: 04/10/17 10:26 Dose: 100 mg Haloperidol (Haldol) 0.5 mg PO Q6H PRN PRN Reason: Extreme agitation Last Admin: 04/06/17 17:03 Dose: 0.5 mg Haloperidol Decanoate (Haldol Liquid) 0.5 mg PO Q6H PRN Last Admin: 04/06/17 22:55 Dose: 0.5 mg Haloperidol Lactate (Haldol) 0.5 mg IM Q6H PRN PRN Reason: Extreme agitation Hyoscyamine (Levsin) 0.125 mg SL Q6HR PRN PRN Reason: Gastrointestinal upset Last Admin: 04/09/17 13:24 Dose: 0.125 mg Lorazepam (Ativan Intensol) 0.5 mg PO Q6HR PRN Last Admin: 04/07/17 22:24 Dose: 0.5 mg Lorazepam (Ativan) 1 mg PO O PRN PRN Reason: Agitation Lorazepam (Ativan) 0.5 mg PO Q6H PRN PRN Reason: Extreme agitation Last Admin: 04/09/17 17:33 Dose: 0.5 mg Lorazepam (Ativan Inj) 0.5 mg IM Q6H PRN PRN Reason: Extreme agitation Memantine (Namenda) 10 mg PO HS ON LICENSE OF [facility] Last Admin: 04/09/17 20:43 Dose: 10 mg Mirtazapine (Remeron Solu-Tab) 30 mg PO HS ON LICENSE OF [facility] Last Admin: 04/09/17 20:42 Dose: 30 mg Omeprazole (Prilosec) 20 mg PO ACB ON LICENSE OF [facility] Last Admin: 04/10/17 10:26 Dose: 20 mg Polyethylene Glycol (Miralax) 17 gm PO DAILY ON LICENSE OF [facility] Last Admin: 04/10/17 10:29 Dose: 17 gm Risperidone (Risperdal M) 0.5 mg PO 14 ON LICENSE OF [facility] Last Admin: 04/09/17 13:25 Dose: 0.5 mg Risperidone (Risperdal M) 1 mg PO HS ON LICENSE OF [facility] Last Admin: 04/09/17 20:42 Dose: 1 mg Warfarin Sodium (Coumadin Protocol) 0 [facility] NOTE SAAD Warfarin Sodium (Coumadin) 3 mg PO NOON ON LICENSE OF [facility] Last Admin: 04/09/17 12:04 Dose: 3 mg Subjective: PT seen and chart examined. Nursing reports pt has been irritable and anxious at times, worse in the evenings. On face to face the pt is pleasant but confused. She reports her mood is stable and she denies any pain. Tolerating meds. Start Time: 11:00 Stop Time: 11:15 Mental Status Exam Vitals: Last Vital Signs Temp 97.0 F 04/10/17 08:00 Pulse 90 04/10/17 10:27 Resp 22 04/10/17 08:00 BP 123/53 04/10/17 08:00 Pulse Ox 97 04/10/17 08:00 Height: 1.52 m Weight: 40.8 kg - Mental Status Exam Muscle Strength/Tone: Normal Dressing: Casual Grooming: Good Attitude: Cooperative Motor Activity: Normal (paces at times, not during interview) Eye Contact: Fair Speech: Other Volume: Soft Rhythm: Appropriate Rhythm Orientation: Oriented to person Mood: Euthymic Rate of Thoughts: Delayed Thought Organization: [place], Confused Associations: Flight of Ideas, Illogical Abstract Reasoning: Poor abstract reasoning Thought Content: Other (no insight into hospitalization, has good sense of humor ) Perception/Psychotic: Hx psychosis, not current Language: Naming Impaired Fund of Knowledge: Poor fund of knowledge Memory: Poor-immediate, Poor-recent Suicidal Ideation: Denies Homicidal Ideation: Denies Insight: Impaired Judgement: Impaired Impulse Control: Poor (improved) - Laboratory Result Diagrams: 04/07/17 13:45 04/07/17 13:58 Assessment and Plan (1) Major neurocognitive disorder Problem details: with behavioral disturbance. Alzheimer's versus Vascular Current visit: Yes Status: Acute Hospital Course Summary Disclaimer: The visit summary below is not to be considered part of the above Progress Note. Hospital Course: 03/19/17 16:13 IMPRESSION Neurocognitive disorder with behavioral changes Normocytic anemia Dementia Anxiety & Depression A-fib - on Coumadin HTN MVP OA Asthma GERD Slow transit constipation PLAN Agree with admission. Still need to check EKG, CT head. Routine labs are also pending. Check dig level and INR. Consult pharmacy for Coumadin management. VS stable though HR has been mildly elevated - hx of A-fib, may need to investigate options for rate control. Normocytic anemia - check B12 level. Cachetic - check prealbumin level. Provide safe, supportive environment. 03/21/17 21:30 Remains confused. Will get collateral from family and discuss med options 03/22/17 IMPRESSION Neurocognitive disorder with behavioral changes Normocytic anemia Mild PCM Dementia Anxiety & Depression A-fib - on Coumadin HTN MVP OA Asthma GERD Slow transit constipation PLAN Digoxin level was normal at 0.8 though give her age and low BMI this may be on the high end for her - digoxin frequency was therefore decreased to every-other- day. HR was >100 on admission but since then has been in the 80s-90s - BP has been acceptable; could consider increasing cardizem if rate increases with reduction of dig. INR 1.85 - pharmacy managing. Prealbumin low at 13.5 - start nutritional supplements. Vit B12 was low end of normal - start supplementation. 03/22/17 17:16 Remains paranoid at times. Will discuss with family use of low dose antipsychotic 03/23/17 Psych: Agree with above plan - have attempted to contact DPOA on multiple occasions to obtain informed consent 03/24/17 Psych: Continue with PRN antipsychotics until able to obtain consent from DPOA - reportedly responds well to Haldol. If not regularly available by phone, alternate DPOA would be beneficial for best care of patient. 03/25/17 HR still controlled since digoxin frequency was reduced to every-other day. INR therapeutic - pharmacy managing Coumadin dosing. Dr. Aceves's notes reviewed - seeking permission from DPOA to start an antipsychotic. 03/25/17: Will schedule Zyprexa 2.5mg PO at dinnertime. Monitor mood, behavior and response to treatment. 03/26/17 12:50 Remains agitated at times. increase Zyprexa to 5mg at dinner time 03/27/17 11:16 No behaviors today. Remains confused. Continue current care 03/28/17 Psych: Increase Zyprexa to 7.5mg PO at dinnertime as still has intermittent agitation requiring multiple PRNs in past 24 hours. PLAN-03/29/17: Overall, Winsome is doing well. She continues to have episodes of increased anxiety, especially at night with sundowners and continues to require occasional PRN medications. Continue psychiatric care per Dr. Aceves and team. Continue to provide safe and supportive environment. Zyprexa 7.5mg added at bedtime per Dr. Aceves in light of persistent agitation in evenings. Cardiac exam reveals persistent irregularly irregular rate and rhythm but rate remains controlled. Continue digoxin every other day and continue to monitor closely. Blood pressure remains stable and patient remains afebrile. INR subtheraputic at 2.37 with pharmacy to manage. Appreciate pharmacy's assistance. Will recheck CBC and BMP in AM in light of recent medication changes to monitor blood counts, electrolytes and renal function. 03/29/17 Psych: Increased Zyprexa just last night - continue to monitor response as it appears patient is responding well to this med and dose so far. 03/30/17 Psych: Continue current care - will discuss means of addressing episodes of anxiety other ways as would like to limit further increase in Zyprexa if possible. Plan - 04/01/17: Overall, Winsome is doing well. Continue psychiatric care per Dr. Aceves and team. Continue to provide safe and supportive environment. Nursing expressed concern about possible UTI given change in behaviors including urinary frequency. UA was obtained and revealed 5-10 WBC with 4+ bacteria and positive nitrite. Culture pending. Keflex 500mg QID initiated x 7 days and will be adjusted pending sensitivities results if warranted. Continue to monitor closely for fever, vomiting, change or worsening. Currently afebrile. Vital signs remain stable. Will recheck CBC and BMP on 04/04 to monitor blood counts, electrolytes and renal function. 04/01/17 Psych: Continue current care - UA ordered and resulted as above, being treated by hospitalist. Continue current psych meds in interim and predict agitation, confusion will again decrease as UTI is treated. 04/02/17 14:29 Some agitation at times. Continue current care 04/03/17 11:14 Remains paranoid and agitated at times. Continue current care 04/04/17 19:21 Remains agitated at times and anxious. Will start Depakote 125mg PO BID 04/05/17 Psych: Patient has continued to upregulate, requiring PRNs most recent days. Will discontinue Zyprexa, switch to Risperdal 0.5mg PO BID (at 1400, HS) and continue low-dose Depakote as above. Monitor mood, behavior and response to treatment. Suspect will need to increase dose of Risperdal at HS but will monitor. 04/06/17 Psych: Continue current care as just switched antipsychotics; monitor response. 04/07/17 Psych: Increase Risperdal to 0.5mg at 1400 and 1mg at HS, will switch to Risperdal M-tab and mirtazapine solu-tab. Asked nursing to separate patient from other peer in question. 04/08/17 14:53 Pt remains anxious but doing a little better Continue current care 04/09/17 10:44 Anxious at times but improved. Continue current care Plan - 04/10/17 (Mirakian) Overall, Winsome is doing well and anticipate discharge in the near future, hopefully 04/11 or 04/12. She continues to have some irritability and anxiety at times but improving. Continue psychiatric care per psychiatric team. Continue to provide safe and supportive environment. Suprapubic tenderness and dysuria on 04/07. Repeat UA revealed 5-10 WBC and trace bacteria. Initial UA on 04/01 revealed coag negative staph and she was started on Keflex. Treatment was changed to doxycycline on 04/08/17 based on initial urine culture sensitivities and to be continued until 04/15/17. Labs on 04/07 were unremarkable. Blood cultures remain negative after 2 days. Lactate initially 1.5 and decreased to 1.4. Procalcitonin <0.015 and he remains afebrile. Continue to monitor closely for symptoms and fever. INR therapeutic at 2.17. Pharmacy to continue to manage. Continue plan of care. 04/10/17 11:22 Some anxiety at night. Continue current care
[2017-04-10] MEDS: RisperiDONE ODT 0.5 MG TABLET PO SCH ×2 (15:08→20:15)
[2017-04-10] MEDS: WARFARIN 3 MG TABLET PO SCH (15:08)
[2017-04-10] MEDS: SOLU PO SCH (20:14)
[2017-04-10] MEDS: MEMANTINE 10 MG TABLET PO SCH (20:14)
[2017-04-10] MEDS: MIRTAZAPINE 30 MG PO SCH (20:14)
[2017-04-11] MEDS: OMEPRAZOLE 20 MG CAPSULE PO SCH (06:31)
[2017-04-11] MEDS: CYANOCOBALAMIN (B-12) 500mcg TABLET PO SCH (10:15)
[2017-04-11] MEDS: ClonazePAM 0.5 MG TABLET PO SCH ×3 (10:15→23:36)
[2017-04-11] MEDS: POLYETHYL GLYCOL 3350 17gm PACKET PO SCH (10:15)
[2017-04-11] MEDS: DIVALPROEX 125 MG TABLET PO SCH ×3 (10:19→23:37)
[2017-04-11] MEDS: WARFARIN 3 MG TABLET PO SCH (14:19)
[2017-04-11] MEDS: RisperiDONE ODT 0.5 MG TABLET PO SCH ×3 (14:20→23:37)
[2017-04-11] MEDS: MEMANTINE 10 MG TABLET PO SCH ×2 (19:51→23:37)
[2017-04-11] MEDS: SOLU PO SCH ×2 (19:51→23:37)
[2017-04-11] MEDS: MIRTAZAPINE 30 MG PO SCH ×2 (19:51→23:37)
--- NOTE | 2017-04-11 21:57 | Neuropsych Progress Note ---
[facility] Subjective Date: 04/11/17 - Sujective/Severity of Illness Medications: Acetaminophen (Tylenol) 325 - 650 mg PO Q5H PRN PRN Reason: Discomfort Last Admin: 04/07/17 20:18 Dose: 650 mg Al Hydroxide/Mg Hydroxide (Maalox Plus) 30 ml PO Q6H PRN PRN Reason: Indigestion Last Admin: 04/05/17 17:51 Dose: 30 ml Bisacodyl (Dulcolax) 10 mg RECTALLY DAILY PRN PRN Reason: Constipation Bisacodyl (Dulcolax) 10 mg PO DAILY PRN PRN Reason: Constipation Last Admin: 04/07/17 11:36 Dose: 10 mg Clonazepam (Klonopin) 0.5 mg PO BID [facility] Last Admin: 04/11/17 19:51 Dose: 0.5 mg Cyanocobalamin (Vit. B-12) 500 mcg PO DAILY [facility] Last Admin: 04/11/17 10:15 Dose: 500 mcg Digoxin (Lanoxin) 125 mcg PO Q2D [facility] Last Admin: 04/10/17 10:27 Dose: 125 mcg Diltiazem HCl (Cardizem Cd) 120 mg PO DAILY [facility] Last Admin: 04/11/17 10:15 Dose: 120 mg Divalproex Sodium (Depakote) 125 mg PO BID [facility] Last Admin: 04/11/17 19:50 Dose: 125 mg Doxycycline Hyclate (Vibramycin) 100 mg PO BIDWM [facility] Stop: 04/15/17 23:55 Last Admin: 04/11/17 17:27 Dose: 100 mg Haloperidol (Haldol) 0.5 mg PO Q6H PRN PRN Reason: Extreme agitation Last Admin: 04/06/17 17:03 Dose: 0.5 mg Haloperidol Decanoate (Haldol Liquid) 0.5 mg PO Q6H PRN Last Admin: 04/06/17 22:55 Dose: 0.5 mg Haloperidol Lactate (Haldol) 0.5 mg IM Q6H PRN PRN Reason: Extreme agitation Hyoscyamine (Levsin) 0.125 mg SL Q6HR PRN PRN Reason: Gastrointestinal upset Last Admin: 04/09/17 13:24 Dose: 0.125 mg Lorazepam (Ativan Intensol) 0.5 mg PO Q6HR PRN Last Admin: 04/07/17 22:24 Dose: 0.5 mg Lorazepam (Ativan) 1 mg PO O PRN PRN Reason: Agitation Lorazepam (Ativan) 0.5 mg PO Q6H PRN PRN Reason: Extreme agitation Last Admin: 04/09/17 17:33 Dose: 0.5 mg Lorazepam (Ativan Inj) 0.5 mg IM Q6H PRN PRN Reason: Extreme agitation Memantine (Namenda) 10 mg PO HS [facility] Last Admin: 04/11/17 19:51 Dose: 10 mg Mirtazapine (Remeron Solu-Tab) 30 mg PO HS [facility] Last Admin: 04/11/17 19:51 Dose: 30 mg Omeprazole (Prilosec) 20 mg PO ACB [facility] Last Admin: 04/11/17 06:31 Dose: 20 mg Polyethylene Glycol (Miralax) 17 gm PO DAILY [facility] Last Admin: 04/11/17 10:15 Dose: 17 gm Risperidone (Risperdal M) 0.5 mg PO 14 [facility] Last Admin: 04/11/17 14:20 Dose: 0.5 mg Risperidone (Risperdal M) 1 mg PO HS [facility] Last Admin: 04/11/17 19:53 Dose: 1 mg Warfarin Sodium (Coumadin Protocol) 0 MC NOTE [facility] Warfarin Sodium (Coumadin) 3 mg PO NOON [facility] Last Admin: 04/11/17 14:19 Dose: 3 mg Subjective: Patient seen and chart reviewed. Case discussed with treatment team. Patient is sleeping soundly during rounds. She reportedly had a couple of ~5 minute episodes last evening where patient was paranoid, anxious and suspicious. She was easily redirected and calmed without use of PRN medication. She has previously denied any SI, HI or AVH. She has previously denied any adverse side effects related to psychotropic medications. Nursing staff report patient has been pleasant and cooperative, without significant behavioral difficulties on the unit. She has been adherent with medications. She has been social on the unit with bright affect. Music therapy has been helpful in calming patient. Patient slept 7.5 hours overnight. VSS. Appetite is fair. Psychotropic PRNs required in the past 24 hours: none. MSE below based on last time patient was awake for interview by physician. Start Time: 06:40 Stop Time: 07:00 Mental Status Exam Vitals: Last Vital Signs Temp 97.2 F 04/11/17 16:00 Pulse 84 04/11/17 16:00 Resp 18 04/11/17 16:00 BP 99/54 04/11/17 16:00 Pulse Ox 96 04/11/17 16:00 Height: 1.52 m Weight: 40.8 kg - Mental Status Exam Muscle Strength/Tone: Normal Dressing: Casual Grooming: Good Attitude: Cooperative Motor Activity: Normal (paces at times, not during interview) Eye Contact: Fair Speech: Other Volume: Soft Rhythm: Appropriate Rhythm Orientation: Oriented to person Mood: Euthymic Rate of Thoughts: Delayed Thought Organization: [place], Confused Associations: Flight of Ideas, Illogical Abstract Reasoning: Poor abstract reasoning Thought Content: Other (no insight into hospitalization, has good sense of humor ) Perception/Psychotic: Hx psychosis, not current Language: Naming Impaired Fund of Knowledge: Poor fund of knowledge Memory: Poor-immediate, Poor-recent Suicidal Ideation: Denies Homicidal Ideation: Denies Insight: Impaired Judgement: Impaired Impulse Control: Fair - Laboratory Result Diagrams: 04/07/17 13:45 04/07/17 13:58 Assessment and Plan (1) Major neurocognitive disorder Problem details: with behavioral disturbance. Alzheimer's versus Vascular Current visit: Yes Status: Acute Hospital Course Summary Disclaimer: The visit summary below is not to be considered part of the above Progress Note. Hospital Course: 03/19/17 16:13 IMPRESSION Neurocognitive disorder with behavioral changes Normocytic anemia Dementia Anxiety & Depression A-fib - on Coumadin HTN MVP OA Asthma GERD Slow transit constipation PLAN Agree with admission. Still need to check EKG, CT head. Routine labs are also pending. Check dig level and INR. Consult pharmacy for Coumadin management. VS stable though HR has been mildly elevated - hx of A-fib, may need to investigate options for rate control. Normocytic anemia - check B12 level. Cachetic - check prealbumin level. Provide safe, supportive environment. 03/21/17 21:30 Remains confused. Will get collateral from family and discuss med options 03/22/17 IMPRESSION Neurocognitive disorder with behavioral changes Normocytic anemia Mild PCM Dementia Anxiety & Depression A-fib - on Coumadin HTN MVP OA Asthma GERD Slow transit constipation PLAN Digoxin level was normal at 0.8 though give her age and low BMI this may be on the high end for her - digoxin frequency was therefore decreased to every-other- day. HR was >100 on admission but since then has been in the 80s-90s - BP has been acceptable; could consider increasing cardizem if rate increases with reduction of dig. INR 1.85 - pharmacy managing. Prealbumin low at 13.5 - start nutritional supplements. Vit B12 was low end of normal - start supplementation. 03/22/17 17:16 Remains paranoid at times. Will discuss with family use of low dose antipsychotic 03/23/17 Psych: Agree with above plan - have attempted to contact DPOA on multiple occasions to obtain informed consent 03/24/17 Psych: Continue with PRN antipsychotics until able to obtain consent from DPOA - reportedly responds well to Haldol. If not regularly available by phone, alternate DPOA would be beneficial for best care of patient. 03/25/17 HR still controlled since digoxin frequency was reduced to every-other day. INR therapeutic - pharmacy managing Coumadin dosing. Dr. Aceves's notes reviewed - seeking permission from DPOA to start an antipsychotic. 03/25/17: Will schedule Zyprexa 2.5mg PO at dinnertime. Monitor mood, behavior and response to treatment. 03/26/17 12:50 Remains agitated at times. increase Zyprexa to 5mg at dinner time 03/27/17 11:16 No behaviors today. Remains confused. Continue current care 03/28/17 Psych: Increase Zyprexa to 7.5mg PO at dinnertime as still has intermittent agitation requiring multiple PRNs in past 24 hours. PLAN-03/29/17: Overall, Winsome is doing well. She continues to have episodes of increased anxiety, especially at night with and continues to require occasional PRN medications. Continue psychiatric care per Dr. Aceves and team. Continue to provide safe and supportive environment. Zyprexa 7.5mg added at bedtime per Dr. Aceves in light of persistent agitation in evenings. Cardiac exam reveals persistent irregularly irregular rate and rhythm but rate remains controlled. Continue digoxin every other day and continue to monitor closely. Blood pressure remains stable and patient remains afebrile. INR subtheraputic at 2.37 with pharmacy to manage. Appreciate pharmacy's assistance. Will recheck CBC and BMP in AM in light of recent medication changes to monitor blood counts, electrolytes and renal function. 03/29/17 Psych: Increased Zyprexa just last night - continue to monitor response as it appears patient is responding well to this med and dose so far. 03/30/17 Psych: Continue current care - will discuss means of addressing episodes of anxiety other ways as would like to limit further increase in Zyprexa if possible. Plan - 04/01/17: Overall, Winsome is doing well. Continue psychiatric care per Dr. Aceves and team. Continue to provide safe and supportive environment. Nursing expressed concern about possible UTI given change in behaviors including urinary frequency. UA was obtained and revealed 5-10 WBC with 4+ bacteria and positive nitrite. Culture pending. Keflex 500mg QID initiated x 7 days and will be adjusted pending sensitivities results if warranted. Continue to monitor closely for fever, vomiting, change or worsening. Currently afebrile. Vital signs remain stable. Will recheck CBC and BMP on 04/04 to monitor blood counts, electrolytes and renal function. 04/01/17 Psych: Continue current care - UA ordered and resulted as above, being treated by hospitalist. Continue current psych meds in interim and predict agitation, confusion will again decrease as UTI is treated. 04/02/17 14:29 Some agitation at times. Continue current care 04/03/17 11:14 Remains paranoid and agitated at times. Continue current care 04/04/17 19:21 Remains agitated at times and anxious. Will start Depakote 125mg PO BID 04/05/17 Psych: Patient has continued to upregulate, requiring PRNs most recent days. Will discontinue Zyprexa, switch to Risperdal 0.5mg PO BID (at 1400, HS) and continue low-dose Depakote as above. Monitor mood, behavior and response to treatment. Suspect will need to increase dose of Risperdal at HS but will monitor. 04/06/17 Psych: Continue current care as just switched antipsychotics; monitor response. 04/07/17 Psych: Increase Risperdal to 0.5mg at 1400 and 1mg at HS, will switch to Risperdal M-tab and mirtazapine solu-tab. Asked nursing to separate patient from other peer in question. 04/08/17 14:53 Pt remains anxious but doing a little better Continue current care 04/09/17 10:44 Anxious at times but improved. Continue current care Plan - 04/10/17 ([place]) Overall, Winsome is doing well and anticipate discharge in the near future, hopefully 04/11 or 04/12. She continues to have some irritability and anxiety at times but improving. Continue psychiatric care per psychiatric team. Continue to provide safe and supportive environment. Suprapubic tenderness and dysuria on 04/07. Repeat UA revealed 5-10 WBC and trace bacteria. Initial UA on 04/01 revealed coag negative staph and she was started on Keflex. Treatment was changed to doxycycline on 04/08/17 based on initial urine culture sensitivities and to be continued until 04/15/17. Labs on 04/07 were unremarkable. Blood cultures remain negative after 2 days. Lactate initially 1.5 and decreased to 1.4. Procalcitonin <0.015 and he remains afebrile. Continue to monitor closely for symptoms and fever. INR therapeutic at 2.17. Pharmacy to continue to manage. Continue plan of care. 04/10/17 11:22 Some anxiety at night. Continue current care 04/11/17 Psych: Patient doing well overall. She continues to have some intermittent anxiety/paranoia at night but this is short-lived and she is redirectable without use of PRN medication. SW to discuss discharge planning with LTC facility.
[2017-04-11 22:30] VITALS: RESP 16
[2017-04-12] MEDS: DIGOXIN 125 MCG TABLET PO SCH (08:50)
[2017-04-12] MEDS: CYANOCOBALAMIN (B-12) 500mcg TABLET PO SCH (08:50)
[2017-04-12] MEDS: OMEPRAZOLE 20 MG CAPSULE PO SCH (08:50)
[2017-04-12] MEDS: DIVALPROEX 125 MG TABLET PO SCH (08:50)
[2017-04-12] MEDS: ClonazePAM 0.5 MG TABLET PO SCH (08:53)
[2017-04-12] MEDS: POLYETHYL GLYCOL 3350 17gm PACKET PO SCH (08:56)
[2017-04-12 08:58] VITALS: PULSE 97
[2017-04-12 09:01] VITALS: BP 128/66; TEMP 97.2; O2SAT 98
--- NOTE | 2017-04-12 10:26 | Pharmacy Consult ---
Pharmacy Consult-Warfarin - Laboratory Information 03/21/17 03/22/17 03/23/17 07:01 04:56 06:31 INR 1.85 H 1.85 H 1.97 H 03/24/17 03/25/17 03/26/17 06:45 05:11 08:25 INR 2.33 H 2.85 H 2.75 H 03/27/17 03/29/17 04/01/17 07:12 07:00 06:40 INR 2.74 H 2.39 H 2.24 H 04/04/17 04/08/17 04/12/17 06:54 08:34 09:30 INR 2.63 H 2.17 H 2.32 H - Consult Information INR is in goal range, will continue warfarin 3mg po daily at noon. Thank you.
[2017-04-12] MEDS: Hyoscyamine 0.125 MG SL tab SL PRN (11:03)
== END 2017-04-12 11:45 | DRG 884 ==
LOC: ED 12:35 → GEN 14:03
PROVIDERS: ADMIT Psychiatry & Neurology Psychiatry; ATTEND Psychiatry & Neurology Psychiatry